=== PATIENT | male | born 1950 | race Caucasian/White ===

== ENCOUNTER 2021-01-08 13:45 | Outpatient (CLI) | payer MEDICARE, SELFPAY ==
[2021-01-08 14:07] LABS: Basophils Absolute Auto 0.1 K/mm3 (0.0-0.1); Basophils Percent Auto 0.7 % (0.2-1.2); Eosinophils Absolute Auto 0.1 K/mm3 (0-0.3); Eosinophils Percent Auto 1.2 % (0-4.4); Hematocrit 44.9 % (42.0-52.0); Hemoglobin 14.8 g/dL (14.0-18.0); Immature Granulocyte Absolute 0.02 K/mm3 (0.00-0.031); Immature Granulocyte Percent A 0.2 % (0-0.5); Lymphocytes Absolute Auto 2.34 K/mm3 (0.9-3.2); Lymphocytes Percent Auto 22.4 % (18.3-44.2); Mean Corpuscular Hemoglobin 33.4 pg (26-34); Mean Corpuscular Volume 101.4 fl (80-100); Mean Platelet Volume 8.8 fl (7.4-10.4); Monocytes Absolute Auto 0.7 K/mm3 (0.1-0.6); Monocytes Percent Auto 6.7 % (2.6-8.5); Neutrophils Absolute Auto 7.2 K/mm3 (1.3-6.7); Neutrophils Percent Auto 68.8 % (45.5-73.1); Platelet Count Result 303 k/mm3 (150-375); Red Blood Count 4.43 M/mm3 (4.6-6.20); Red Cell Distribution Width 13.1 % (11.5-14.5); White Blood Count 10.4 K/mm3 (4.5-10.0)
[2021-01-08 15:58] LABS: Alanine Aminotransferase 33 U/L (4-50); Alkaline Phosphatase 66 U/L (38-126); Anion Gap 9 mmol/L (8-16); Aspartate Amino Transferase 36 U/L (17-59); Bilirubin,Total 0.5 mg/dL (0.2-1.3); Blood Urea Nitrogen 14 mg/dL (9-20); Calcium 9.7 mg/dL (8.4-10.2); Carbon Dioxide 28 mmol/L (22-30); Chloride 98 mmol/L (98-107); Estimated Glomerular Filt Rate > 60; Glucose 95 mg/dL (65-110); Potassium 3.9 mmol/L (3.4-5.0); Sodium 135 mmol/L (137-145)
[2021-01-08 16:08] LABS: Immunoglobulin A 301 mg/dL (70-400); Immunoglobulin G 792 mg/dL (700-1600); Immunoglobulin M 37 mg/dL (40-230)
[2021-01-12 02:54] LABS: Albumin 4.6 g/dL (3.8-4.8); Alpha 1 Globulin 0.3 g/dL (0.2-0.3); Alpha 2 Globulin 0.7 g/dL (0.5-0.9); Beta 1 Globulin 0.6 g/dL (0.4-0.6); Gamma Globulin 0.9 g/dL (0.8-1.7); Protein, Total 7.6 g/dL (6.1-8.1)
[2021-01-12 04:57] LABS: Kappa\\Lambda Light Chains 1.03 (0.26-1.65); Lambda Light Chain 18.4 mg/L (5.7-26.3)
== END 2021-01-08 13:46 | disposition home or self-care (01) ==
PROVIDERS: Visit Provider Internal Medicine Hematology & Oncology
DX: D47.2 Monoclonal gammopathy (principal)
CPT/HCPCS: 36415; 80053; 82784; 83883; 84155; 84165; 85025

== ENCOUNTER 2021-07-30 13:53 | Outpatient (CLI) | payer MEDICARE, SELFPAY ==
[2021-07-30 14:23] LABS: Basophils Absolute Auto 0.1 K/mm3 (0.0-0.1); Basophils Percent Auto 1.1 % (0.2-1.2); Eosinophils Absolute Auto 0.2 K/mm3 (0-0.3); Eosinophils Percent Auto 2.7 % (0-4.4); Hematocrit 46.5 % (42.0-52.0); Hemoglobin 15.8 g/dL (14.0-18.0); Immature Granulocyte Absolute 0.02 K/mm3 (0.00-0.031); Immature Granulocyte Percent A 0.2 % (0-0.5); Lymphocytes Absolute Auto 2.18 K/mm3 (0.9-3.2); Lymphocytes Percent Auto 26.5 % (18.3-44.2); Mean Corpuscular Hemoglobin 34.8 pg (26-34); Mean Corpuscular Volume 102.4 fl (80-100); Mean Platelet Volume 9.1 fl (7.4-10.4); Monocytes Absolute Auto 0.8 K/mm3 (0.1-0.6); Monocytes Percent Auto 9.5 % (2.6-8.5); Platelet Count Result 250 k/mm3 (150-375); Red Blood Count 4.54 M/mm3 (4.6-6.20); Red Cell Distribution Width 13.2 % (11.5-14.5); White Blood Count 8.2 K/mm3 (4.5-10.0)
[2021-07-30 16:38] LABS: Alanine Aminotransferase 24 U/L (6-50); Albumin Level 4.7 g/dL (3.5-5.1); Alkaline Phosphatase 74 U/L (38-126); Anion Gap 6 mmol/L (8-16); Aspartate Amino Transferase 37 U/L (17-59); Bilirubin,Total 0.3 mg/dL (0.2-1.3); Blood Urea Nitrogen 19 mg/dL (9-20); Calcium 9.2 mg/dL (8.4-10.2); Carbon Dioxide 29 mmol/L (22-30); Chloride 99 mmol/L (98-107); Estimated Glomerular Filt Rate > 60; Glucose 90 mg/dL (65-110); Potassium 3.9 mmol/L (3.4-5.0); Sodium 134 mmol/L (137-145)
== END 2021-07-30 13:54 | disposition home or self-care (01) ==
LOC: ANHLAB 13:55
PROVIDERS: Visit Provider Internal Medicine Hematology & Oncology
DX: E88.09 Other disorders of plasma-protein metabolism, not elsewhere classified (principal)
CPT/HCPCS: 36415; 80053; 85025

== ENCOUNTER 2022-08-12 09:00 | Outpatient (NON) | payer MEDICARE, SELFPAY | END 2022-08-12 09:01 | disposition home or self-care (01) | LOC: ANHLAB 08-13 15:49 | PROVIDERS: Visit Provider Nurse Practitioner | DX: C44.529 Squamous cell carcinoma of skin of other part of trunk (principal) | CPT/HCPCS: 88305 ==

== ENCOUNTER 2022-09-08 13:52 | Outpatient (NON) | payer MEDICARE, SELFPAY | END 2022-09-08 13:53 | disposition home or self-care (01) | LOC: ANHLAB 13:53 | PROVIDERS: Visit Provider Nurse Practitioner | DX: C44.92 Squamous cell carcinoma of skin, unspecified (principal) | CPT/HCPCS: 88305; 88331 ==

== ENCOUNTER 2024-04-04 13:04 | Inpatient (IN) | payer MEDICARE, SELFPAY ==
--- NOTE | ~2024-04-04 | CT_ITS ---
EXAMINATION: CT brain wo con DATE: 04/04/2024 17:48 INDICATION: dizziness . TECHNIQUE: Computed tomography (CT) of the head was performed without intravenous contrast. The mA wa s adjusted according to patient size. Iterative reconstruction technique was employed. The dose-lengt h product was 681.00 mGy-cm. COMPARISON: None. FINDINGS: No acute intracranial hemorrhage or extra-axial fluid collection. No hydrocephalus, mass, or herniation. No acute ischemic infarct. Unremarkable dural venous sinus attenuation. No acute osseous abnormality. Bilateral maxillary and ethmoid mucosal thickening, aerated secretions in the left sphenoid and maxil isidoro sinuses, the remaining aerated spaces are clear. Focal right medial occipital encephalomalacia. Mild and chronic white matter change. Atherosclerotic intracranial calcification. Bilateral lens replacements. IMPRESSION: No acute intracranial process. Reviewed, dictated and finalized at location K. 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
--- NOTE | ~2024-04-04 | XR_ITS ---
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 RESULT: Lines, tubes, and devices: Intact sternotomy wires. Left chest pacer with intact leads. Cardiac valv e replacement. Lungs and pleura: Mild diffuse reticular opacities with indistinct vessels. Cardiomediastinal silhouette: Stable. Other: No acute osseous or upper abdominal finding. IMPRESSION: Mild interstitial edema. Reviewed, dictated and finalized at location K. ETIC TURF WORKER IMPRESSION: Mild interstitial edema.
--- NOTE | ~2024-04-04 | CT_ITS ---
EXAMINATION: CT abdomen pelvis w con DATE: 04/09/2024 17:53 INDICATION: unknown fever etiology TECHNIQUE: Computed tomography (CT) of the abdomen and pelvis was performed with 100 mL Omnipaque-350 intravenous contrast. Automated exposure control and iterative reconstruction technique were employe d. The dose-length product was 791.25 mGy-cm. COMPARISON: X-ray chest, same date. FINDINGS: Lower thorax: Minimal bibasilar scar/atelectasis. Cardiac pacing wires. Cardiac valve replacement. Co ronary artery calcifications Liver: Scattered hypodensities, likely representing cysts/hemangiomas. Simple right lobe cyst. Biliary/Gallbladder: Cholelithiasis. Mild gallbladder hydrops. No inflammatory change. No bile duct d ilation. Pancreas: No mass or duct dilation. Spleen: Normal. Adrenals:No mass. Kidneys: Simple right lower pole cysts. Bilateral subcentimeter hypodensities, too small to character ize, but most likely represent cysts. Nonobstructing 3 mm right lower pole calcification. GI tract: No small or large bowel dilation. Appendix not confidently visualized. Diverticulosis witho ut diverticulitis. Mesentery/Peritoneum: No ascites, mass, or free air. Retroperitoneum: No mass. Atherosclerotic calcifications of intra-abdominal arterial vessels. Fusifor m infrarenal abdominal aortic aneurysm measuring up to 3.7 cm. Pelvis: Distended urinary bladder with mild wall thickening. Mild prostatomegaly. Soft Tissues: Small, uncomplicated, fat-containing bilateral inguinal and helical hernias Bones: No acute osseous finding. IMPRESSION: Cholelithiasis and mild gallbladder hydrops, without inflammatory changes, correlate with biliary lab s. Cystitis versus urinary bladder wall thickening from chronic outlet obstruction. Otherwise, no acute abdominopelvic process detected. 3.7 cm infrarenal abdominal aortic aneurysm, recommend CT of the abdomen and pelvis with contrast in 2 years for follow-up. Reviewed, dictated and finalized at location [facility]. [facility] IMPRESSION: Cholelithiasis and mild gallbladder hydrops, without inflammatory changes, rod elate with biliary labs. Cystitis versus urinary bladder wall thickening from chronic outlet obstruction . Otherwise, no acute abdominopelvic process detected. 3.7 cm infrarenal abdominal aortic aneurysm, recommend CT of the abdomen and pe lvis with contrast in 2 years for follow-up.
--- NOTE | ~2024-04-04 | XR_ITS ---
EXAMINATION: XR chest 1V portable DATE: 04/08/2024 10:18 INDICATION: Weakness. Assess for pneumonia post recent flulike symptoms. TECHNIQUE: frontal view of the chest was obtained. COMPARISON: Chest radiograph dated 04/04/2024 FINDINGS: The lungs are clear with no focal airspace opacities, pulmonary edema, pleural effusion or pneumothor ax. The cardiomediastinal silhouette is within normal limits for AP technique. Median sternotomy wire s and mediastinal surgical clips are seen, likely from prior coronary artery bypass grafting. There i s also been a prior cardiac valve repair, likely mitral. Dual lead pacemaker seen with leads projecti ng over the expected locations of the right atrium and right ventricle. IMPRESSION: 1. No acute cardiopulmonary disease. Reviewed, dictated and finalized at location B. CTIOUS DISEASES PHYSICIAN
[2024-04-04 13:09] VITALS: BP 138/74; PULSE 74; RESP 16; TEMP 36.4; O2SAT 100
--- NOTE | 2024-04-04 14:15 | ED_ITS ---
HPI - Weakness General Chief complaint: Weakness <Kle Reveles PA-C - Last Filed: 04/04/24 14:25> Stated complaint: fluish <Kel Reveles PA-C - Last Filed: 04/04/24 14:25> Time Seen by Provider: 04/04/24 15:30 <Kel Reveles PA-C - Last Filed: 04/04/24 14:25> Focused HPI: this is a 73-year-old male who presents to the ED for chief complaint of fatigue and general weakness intermittent over the past 4 weeks. Patient states that he has been having off and on flu-like symptoms. Reports chills, body aches and extreme fatigue. States that he was seen by his PCP 2 weeks ago and was feeling fine at that time. States he was seen a [place] 4 days ago and had a negative workup there aside from a mildly low potassium which was orally repleted at that time. States that he feels the same today as he did last when he was seen. Endorses mild dizziness when standing up. Denies chest pain, syncope, numbness, weakness. s/p aortic valve replacement, pacemaker placed, appendectomy GENERAL: Well-appearing, well-nourished, and in no acute distress. HEAD: Normocephalic, atraumatic. CHEST: Clear to auscultation. No respiratory distress. HEART: Regular rate and rhythm. NEURO: Alert and oriented x3. Patient screened in triage and initial orders placed. Additional care and disposition to be based upon diagnostic testing and treatment. <Kel Reveles PA-C - Last Filed: 04/04/24 14:25> Source: patient <Kel Reveles PA-C - Last Filed: 04/04/24 14:25> Mode of arrival: ambulatory <Kel Reveles PA-C - Last Filed: 04/04/24 14:25> Limitations: no limitations <Kel Reveles PA-C - Last Filed: 04/04/24 14:25> History of Present Illness HPI Narrative: Agree with HPI <Nikita Francisco MD - Last Filed: 04/04/24 22:00> Related Data Home medications: Home Medications ?Medication ?Instructions ?Recorded ?Confirmed ?Last Taken ?Type aspirin 81 mg capsule 81 mg PO DAILY 04/04/24 04/04/24 Unknown History atorvastatin 80 mg tablet (Lipitor) 80 mg PO DAILY 04/04/24 04/04/24 Unknown History gabapentin 300 mg capsule 300 mg PO TID 04/04/24 04/04/24 Unknown History multivitamin 1 tablet PO DAILY 04/04/24 04/04/24 Unknown History nifedipine 90 mg tablet,extended 90 mg PO DAILY 04/04/24 04/04/24 Unknown History release triamterene 37.5 1 cap PO DAILY 04/04/24 04/04/24 Unknown History mg-hydrochlorothiazide 25 mg capsule warfarin 4 mg tablet 4 mg PO DAILY 04/04/24 04/04/24 Unknown History <Kel Reveles PA-C - Last Filed: 04/04/24 14:25> Allergies/Adverse reactions: Allergies Allergy/AdvReac Type Severity Reaction Status Date / Time No Known Allergies Allergy Verified 04/04/24 15:28 <Kel Reveles PA-C - Last Filed: 04/04/24 14:25> Review of Systems 2 Review of Systems: All systems reviewed & are unremarkable except as noted in HPI and below <Nikita Francisco MD - Last Filed: 04/04/24 22:00> Constitutional: Constitutional: Reports no additional constitutional complaints <Nikita Francisco MD - Last Filed: 04/04/24 22:00> ENT: Reports system reviewed and no additional complaints, except as documented <Nikita Francisco MD - Last Filed: 04/04/24 22:00> Cardiovascular: Cardiovascular: Reports no additional cardiovascular complaints <Nikita Francisco MD - Last Filed: 04/04/24 22:00> Respiratory: Respiratory: Reports no additional respiratory complaints < Nikita Francisco MD - Last Filed: 04/04/24 22:00> FORMERLY [facility], [facility] Past Medical History Medical History: Medical History (Updated 04/04/24 @ 22:00 by Nikita Francisco MD) Hypertension Hyperlipidemia <Kel Reveles PA-C - Last Filed: 04/04/24 14:25> Surgical History Surgical History: Surgical History (Updated 04/04/24 @ 21:55 by Nikita Francisco MD) Aortic valve replaced <Kel Reveles PA-C - Last Filed: 04/04/24 14:25> Exam 2 Narrative: GENERAL: Well-appearing, well-nourished, and in no acute distress. HEAD: Normocephalic, atraumatic. EYES: PERRL and EOMI. ENT: Mucous membranes moist. TMs normal bilaterally. CHEST: Clear to auscultation. No respiratory distress. HEART: Regular rate and rhythm. Normal peripheral pulses. ABDOMEN: Soft, nontender, nondistended. EXTREMITIES: Normal range of motion. No edema. SKIN: Warm, dry, no rash. NEURO: Alert and oriented x3. PSYCH: Normal mood and affect. <Nikita Francisco MD - Last Filed: 04/04/24 22:00> Course Course Emergency Course: Subtherapeutic INR. Discussed imaging results. Dizziness for last month likely related to the sinusitis. Admit to hospitalist service on heparin drip. Will give home dose of warfarin this evening. <Nikita Francisco MD - Last Filed: 04/04/24 22:00> Vital Signs Vital signs: Vital Signs Temperature 97.5 F L 04/04/24 13:09 Pulse Rate 74 04/04/24 13:09 Respiratory Rate 16 04/04/24 13:09 Blood Pressure 138/74 04/04/24 13:09 Pulse Oximetry 100 04/04/24 13:09 Temperature 97.8 F 04/04/24 19:16 Pulse Rate 72 04/04/24 19:16 Respiratory Rate 17 04/04/24 19:16 Blood Pressure 114/70 04/04/24 19:16 Pulse Oximetry 93 04/04/24 19:16 <Kel Reveles PA-C - Last Filed: 04/04/24 14:25> Vital Signs Temperature 97.5 F L 04/04/24 13:09 Pulse Rate 74 04/04/24 13:09 Respiratory Rate 16 04/04/24 13:09 Blood Pressure 138/74 04/04/24 13:09 Pulse Oximetry 100 04/04/24 13:09 Temperature 97.8 F 04/04/24 19:16 Pulse Rate 72 04/04/24 19:16 Respiratory Rate 17 04/04/24 19:16 Blood Pressure 114/70 04/04/24 19:16 Pulse Oximetry 93 04/04/24 19:16 <Nikita Francisco MD - Last Filed: 04/04/24 22:00> MDM - Weakness Lab Data Result diagrams: 04/04/24 14:35 04/04/24 14:35 <Kel Reveles PA-C - Last Filed: 04/04/24 14:25> Labs: Lab Results 04/04/24 04/04/24 04/04/24 Range/Units 14:35 14:35 14:35 WBC 10.9 H (4.5-10.0) K/mm3 RBC 4.03 L (4.6-6.20) M/mm3 Hgb 13.3 L (14.0-18.0) g/dL Hct 39.9 L (42.0-52.0) % MCV 99.0 (80-100) fl MCH 33.0 (26-34) pg MCHC 33.3 (32-36) g/dl RDW 13.4 (11.5-14.5) % Plt Count 294 (150-375) k/mm3 MPV 9.5 (7.4-10.4) fl Immature Gran % (Auto) 0.6 H (0-0.5) % Neut % (Auto) 81.6 H (45.5-73.1) % Lymph % (Auto) 9.9 L (18.3-44.2) % [place] % (Auto) 6.7 (2.6-8.5) % Eos % (Auto) 0.6 (0-4.4) % Baso % (Auto) 0.6 (0.2-1.2) % Lymph # (Auto) 1.08 (0.9-3.2) K/mm3 [place] # (Auto) 0.7 H (0.1-0.6) K/mm3 Eos # (Auto) 0.1 (0-0.3) K/mm3 Baso # (Auto) 0.1 (0.0-0.1) K/mm3 Abs Immat Gran (auto) 0.06 H (0.00-0.031) K/mm3 Absolute Neuts (auto) 8.9 H (1.3-6.7) K/mm3 Absolute Nucleated RBC 0.000 (0.0-0.012) K/mm3 Nucleated RBC % 0.0 (0.0-0.2) % PT 15.9 H (11.1-14.7) Seconds INR 1.2 APTT 41.5 H (22.3-36.8) Seconds Sodium Cancelled 139 Potassium Cancelled 3.3 L Chloride Cancelled Carbon Dioxide Anion Gap BUN Creatinine Estim Creat Clear Calc Estimated GFR Glucose Calcium Total Bilirubin AST ALT Alkaline Phosphatase Troponin I (0.000-0.034) ng/mL NT-Pro-B Natriuret Pep (19.9-100) pg/mL Total Protein Albumin Influenza A (RT-PCR) (Negative) Influenza B (RT-PCR) (Negative) RSV (RT-PCR) (Negative) SARS-CoV-2 RNA (RT-PCR) (Negative) 04/04/24 04/04/24 04/04/24 Range/Units 14:35 14:35 14:35 WBC (4.5-10.0) K/mm3 RBC (4.6-6.20) M/mm3 Hgb (14.0-18.0) g/dL Hct (42.0-52.0) % MCV (80-100) fl MCH (26-34) pg MCHC (32-36) g/dl RDW (11.5-14.5) % Plt Count (150-375) k/mm3 MPV (7.4-10.4) fl Immature Gran % (Auto) (0-0.5) % Neut % (Auto) (45.5-73.1) % Lymph % (Auto) (18.3-44.2) % [place] % (Auto) (2.6-8.5) % Eos % (Auto) (0-4.4) % Baso % (Auto) (0.2-1.2) % Lymph # (Auto) (0.9-3.2) K/mm3 [place] # (Auto) (0.1-0.6) K/mm3 Eos # (Auto) (0-0.3) K/mm3 Baso # (Auto) (0.0-0.1) K/mm3 Abs Immat Gran (auto) (0.00-0.031) K/mm3 Absolute Neuts (auto) (1.3-6.7) K/mm3 Absolute Nucleated RBC (0.0-0.012) K/mm3 Nucleated RBC % (0.0-0.2) % PT (11.1-14.7) Seconds INR APTT (22.3-36.8) Seconds Sodium Potassium Chloride 100 Carbon Dioxide Cancelled 29 Anion Gap Cancelled 10 BUN Cancelled Creatinine Estim Creat Clear Calc Estimated GFR Glucose Calcium Total Bilirubin AST ALT Alkaline Phosphatase Troponin I (0.000-0.034) ng/mL NT-Pro-B Natriuret Pep (19.9-100) pg/mL Total Protein Albumin Influenza A (RT-PCR) (Negative) Influenza B (RT-PCR) (Negative) RSV (RT-PCR) (Negative) SARS-CoV-2 RNA (RT-PCR) (Negative) 04/04/24 04/04/24 04/04/24 Range/Units 14:35 14:35 14:35 WBC (4.5-10.0) K/mm3 RBC (4.6-6.20) M/mm3 Hgb (14.0-18.0) g/dL Hct (42.0-52.0) % MCV (80-100) fl MCH (26-34) pg MCHC (32-36) g/dl RDW (11.5-14.5) % Plt Count (150-375) k/mm3 MPV (7.4-10.4) fl Immature Gran % (Auto) (0-0.5) % Neut % (Auto) (45.5-73.1) % Lymph % (Auto) (18.3-44.2) % [place] % (Auto) (2.6-8.5) % Eos % (Auto) (0-4.4) % Baso % (Auto) (0.2-1.2) % Lymph # (Auto) (0.9-3.2) K/mm3 [place] # (Auto) (0.1-0.6) K/mm3 Eos # (Auto) (0-0.3) K/mm3 Baso # (Auto) (0.0-0.1) K/mm3 Abs Immat Gran (auto) (0.00-0.031) K/mm3 Absolute Neuts (auto) (1.3-6.7) K/mm3 Absolute Nucleated RBC (0.0-0.012) K/mm3 Nucleated RBC % (0.0-0.2) % PT (11.1-14.7) Seconds INR APTT (22.3-36.8) Seconds Sodium Potassium Chloride Carbon Dioxide Anion Gap BUN 15 Creatinine Cancelled 0.70 Estim Creat Clear Calc Cancelled 82 Estimated GFR Cancelled Glucose Calcium Total Bilirubin AST ALT Alkaline Phosphatase Troponin I (0.000-0.034) ng/mL NT-Pro-B Natriuret Pep (19.9-100) pg/mL Total Protein Albumin Influenza A (RT-PCR) (Negative) Influenza B (RT-PCR) (Negative) RSV (RT-PCR) (Negative) SARS-CoV-2 RNA (RT-PCR) (Negative) 04/04/24 04/04/24 04/04/24 Range/Units 14:35 14:35 14:35 WBC (4.5-10.0) K/mm3 RBC (4.6-6.20) M/mm3 Hgb (14.0-18.0) g/dL Hct (42.0-52.0) % MCV (80-100) fl MCH (26-34) pg MCHC (32-36) g/dl RDW (11.5-14.5) % Plt Count (150-375) k/mm3 MPV (7.4-10.4) fl Immature Gran % (Auto) (0-0.5) % Neut % (Auto) (45.5-73.1) % Lymph % (Auto) (18.3-44.2) % [place] % (Auto) (2.6-8.5) % Eos % (Auto) (0-4.4) % Baso % (Auto) (0.2-1.2) % Lymph # (Auto) (0.9-3.2) K/mm3 [place] # (Auto) (0.1-0.6) K/mm3 Eos # (Auto) (0-0.3) K/mm3 Baso # (Auto) (0.0-0.1) K/mm3 Abs Immat Gran (auto) (0.00-0.031) K/mm3 Absolute Neuts (auto) (1.3-6.7) K/mm3 Absolute Nucleated RBC (0.0-0.012) K/mm3 Nucleated RBC % (0.0-0.2) % PT (11.1-14.7) Seconds INR APTT (22.3-36.8) Seconds Sodium Potassium Chloride Carbon Dioxide Anion Gap BUN Creatinine Estim Creat Clear Calc Estimated GFR > 60 Glucose Cancelled 116 H Calcium Cancelled 9.5 Total Bilirubin Cancelled AST ALT Alkaline Phosphatase Troponin I (0.000-0.034) ng/mL NT-Pro-B Natriuret Pep (19.9-100) pg/mL Total Protein Albumin Influenza A (RT-PCR) (Negative) Influenza B (RT-PCR) (Negative) RSV (RT-PCR) (Negative) SARS-CoV-2 RNA (RT-PCR) (Negative) 04/04/24 04/04/24 04/04/24 Range/Units 14:35 14:35 14:35 WBC (4.5-10.0) K/mm3 RBC (4.6-6.20) M/mm3 Hgb (14.0-18.0) g/dL Hct (42.0-52.0) % MCV (80-100) fl MCH (26-34) pg MCHC (32-36) g/dl RDW (11.5-14.5) % Plt Count (150-375) k/mm3 MPV (7.4-10.4) fl Immature Gran % (Auto) (0-0.5) % Neut % (Auto) (45.5-73.1) % Lymph % (Auto) (18.3-44.2) % [place] % (Auto) (2.6-8.5) % Eos % (Auto) (0-4.4) % Baso % (Auto) (0.2-1.2) % Lymph # (Auto) (0.9-3.2) K/mm3 [place] # (Auto) (0.1-0.6) K/mm3 Eos # (Auto) (0-0.3) K/mm3 Baso # (Auto) (0.0-0.1) K/mm3 Abs Immat Gran (auto) (0.00-0.031) K/mm3 Absolute Neuts (auto) (1.3-6.7) K/mm3 Absolute Nucleated RBC (0.0-0.012) K/mm3 Nucleated RBC % (0.0-0.2) % PT (11.1-14.7) Seconds INR APTT (22.3-36.8) Seconds Sodium Potassium Chloride Carbon Dioxide Anion Gap BUN Creatinine Estim Creat Clear Calc Estimated GFR Glucose Calcium Total Bilirubin 0.7 AST Cancelled 25 ALT Cancelled 29 Alkaline Phosphatase Cancelled Troponin I (0.000-0.034) ng/mL NT-Pro-B Natriuret Pep (19.9-100) pg/mL Total Protein Albumin Influenza A (RT-PCR) (Negative) Influenza B (RT-PCR) (Negative) RSV (RT-PCR) (Negative) SARS-CoV-2 RNA (RT-PCR) (Negative) 04/04/24 04/04/24 04/04/24 Range/Units 14:35 14:35 14:35 WBC (4.5-10.0) K/mm3 RBC (4.6-6.20) M/mm3 Hgb (14.0-18.0) g/dL Hct (42.0-52.0) % MCV (80-100) fl MCH (26-34) pg MCHC (32-36) g/dl RDW (11.5-14.5) % Plt Count (150-375) k/mm3 MPV (7.4-10.4) fl Immature Gran % (Auto) (0-0.5) % Neut % (Auto) (45.5-73.1) % Lymph % (Auto) (18.3-44.2) % [place] % (Auto) (2.6-8.5) % Eos % (Auto) (0-4.4) % Baso % (Auto) (0.2-1.2) % Lymph # (Auto) (0.9-3.2) K/mm3 [place] # (Auto) (0.1-0.6) K/mm3 Eos # (Auto) (0-0.3) K/mm3 Baso # (Auto) (0.0-0.1) K/mm3 Abs Immat Gran (auto) (0.00-0.031) K/mm3 Absolute Neuts (auto) (1.3-6.7) K/mm3 Absolute Nucleated RBC (0.0-0.012) K/mm3 Nucleated RBC % (0.0-0.2) % PT (11.1-14.7) Seconds INR APTT (22.3-36.8) Seconds Sodium Potassium Chloride Carbon Dioxide Anion Gap BUN Creatinine Estim Creat Clear Calc Estimated GFR Glucose Calcium Total Bilirubin AST ALT Alkaline Phosphatase 69 Troponin I 0.013 (0.000-0.034) ng/mL NT-Pro-B Natriuret Pep 2830 H (19.9-100) pg/mL Total Protein Cancelled 8.0 Albumin Cancelled 3.8 Influenza A (RT-PCR) Negative (Negative) Influenza B (RT-PCR) Negative (Negative) RSV (RT-PCR) Negative (Negative) SARS-CoV-2 RNA (RT-PCR) Negative (Negative) <Kel Reveles PA-C - Last Filed: 04/04/24 14:25> Lab Results 04/04/24 04/04/24 04/04/24 Range/Units 14:35 14:35 14:35 WBC 10.9 H (4.5-10.0) K/mm3 RBC 4.03 L (4.6-6.20) M/mm3 Hgb 13.3 L (14.0-18.0) g/dL Hct 39.9 L (42.0-52.0) % MCV 99.0 (80-100) fl MCH 33.0 (26-34) pg MCHC 33.3 (32-36) g/dl RDW 13.4 (11.5-14.5) % Plt Count 294 (150-375) k/mm3 MPV 9.5 (7.4-10.4) fl Immature Gran % (Auto) 0.6 H (0-0.5) % Neut % (Auto) 81.6 H (45.5-73.1) % Lymph % (Auto) 9.9 L (18.3-44.2) % [place] % (Auto) 6.7 (2.6-8.5) % Eos % (Auto) 0.6 (0-4.4) % Baso % (Auto) 0.6 (0.2-1.2) % Lymph # (Auto) 1.08 (0.9-3.2) K/mm3 [place] # (Auto) 0.7 H (0.1-0.6) K/mm3 Eos # (Auto) 0.1 (0-0.3) K/mm3 Baso # (Auto) 0.1 (0.0-0.1) K/mm3 Abs Immat Gran (auto) 0.06 H (0.00-0.031) K/mm3 Absolute Neuts (auto) 8.9 H (1.3-6.7) K/mm3 Absolute Nucleated RBC 0.000 (0.0-0.012) K/mm3 Nucleated RBC % 0.0 (0.0-0.2) % PT 15.9 H (11.1-14.7) Seconds INR 1.2 APTT 41.5 H (22.3-36.8) Seconds Sodium Cancelled 139 Potassium Cancelled 3.3 L Chloride Cancelled Carbon Dioxide Anion Gap BUN Creatinine Estim Creat Clear Calc Estimated GFR Glucose Calcium Total Bilirubin AST ALT Alkaline Phosphatase Troponin I (0.000-0.034) ng/mL NT-Pro-B Natriuret Pep (19.9-100) pg/mL Total Protein Albumin Influenza A (RT-PCR) (Negative) Influenza B (RT-PCR) (Negative) RSV (RT-PCR) (Negative) SARS-CoV-2 RNA (RT-PCR) (Negative) 04/04/24 04/04/24 04/04/24 Range/Units 14:35 14:35 14:35 WBC (4.5-10.0) K/mm3 RBC (4.6-6.20) M/mm3 Hgb (14.0-18.0) g/dL Hct (42.0-52.0) % MCV (80-100) fl MCH (26-34) pg MCHC (32-36) g/dl RDW (11.5-14.5) % Plt Count (150-375) k/mm3 MPV (7.4-10.4) fl Immature Gran % (Auto) (0-0.5) % Neut % (Auto) (45.5-73.1) % Lymph % (Auto) (18.3-44.2) % [place] % (Auto) (2.6-8.5) % Eos % (Auto) (0-4.4) % Baso % (Auto) (0.2-1.2) % Lymph # (Auto) (0.9-3.2) K/mm3 [place] # (Auto) (0.1-0.6) K/mm3 Eos # (Auto) (0-0.3) K/mm3 Baso # (Auto) (0.0-0.1) K/mm3 Abs Immat Gran (auto) (0.00-0.031) K/mm3 Absolute Neuts (auto) (1.3-6.7) K/mm3 Absolute Nucleated RBC (0.0-0.012) K/mm3 Nucleated RBC % (0.0-0.2) % PT (11.1-14.7) Seconds INR APTT (22.3-36.8) Seconds Sodium Potassium Chloride 100 Carbon Dioxide Cancelled 29 Anion Gap Cancelled 10 BUN Cancelled Creatinine Estim Creat Clear Calc Estimated GFR Glucose Calcium Total Bilirubin AST ALT Alkaline Phosphatase Troponin I (0.000-0.034) ng/mL NT-Pro-B Natriuret Pep (19.9-100) pg/mL Total Protein Albumin Influenza A (RT-PCR) (Negative) Influenza B (RT-PCR) (Negative) RSV (RT-PCR) (Negative) SARS-CoV-2 RNA (RT-PCR) (Negative) 04/04/24 04/04/24 04/04/24 Range/Units 14:35 14:35 14:35 WBC (4.5-10.0) K/mm3 RBC (4.6-6.20) M/mm3 Hgb (14.0-18.0) g/dL Hct (42.0-52.0) % MCV (80-100) fl MCH (26-34) pg MCHC (32-36) g/dl RDW (11.5-14.5) % Plt Count (150-375) k/mm3 MPV (7.4-10.4) fl Immature Gran % (Auto) (0-0.5) % Neut % (Auto) (45.5-73.1) % Lymph % (Auto) (18.3-44.2) % [place] % (Auto) (2.6-8.5) % Eos % (Auto) (0-4.4) % Baso % (Auto) (0.2-1.2) % Lymph # (Auto) (0.9-3.2) K/mm3 [place] # (Auto) (0.1-0.6) K/mm3 Eos # (Auto) (0-0.3) K/mm3 Baso # (Auto) (0.0-0.1) K/mm3 Abs Immat Gran (auto) (0.00-0.031) K/mm3 Absolute Neuts (auto) (1.3-6.7) K/mm3 Absolute Nucleated RBC (0.0-0.012) K/mm3 Nucleated RBC % (0.0-0.2) % PT (11.1-14.7) Seconds INR APTT (22.3-36.8) Seconds Sodium Potassium Chloride Carbon Dioxide Anion Gap BUN 15 Creatinine Cancelled 0.70 Estim Creat Clear Calc Cancelled 82 Estimated GFR Cancelled Glucose Calcium Total Bilirubin AST ALT Alkaline Phosphatase Troponin I (0.000-0.034) ng/mL NT-Pro-B Natriuret Pep (19.9-100) pg/mL Total Protein Albumin Influenza A (RT-PCR) (Negative) Influenza B (RT-PCR) (Negative) RSV (RT-PCR) (Negative) SARS-CoV-2 RNA (RT-PCR) (Negative) 04/04/24 04/04/24 04/04/24 Range/Units 14:35 14:35 14:35 WBC (4.5-10.0) K/mm3 RBC (4.6-6.20) M/mm3 Hgb (14.0-18.0) g/dL Hct (42.0-52.0) % MCV (80-100) fl MCH (26-34) pg MCHC (32-36) g/dl RDW (11.5-14.5) % Plt Count (150-375) k/mm3 MPV (7.4-10.4) fl Immature Gran % (Auto) (0-0.5) % Neut % (Auto) (45.5-73.1) % Lymph % (Auto) (18.3-44.2) % [place] % (Auto) (2.6-8.5) % Eos % (Auto) (0-4.4) % Baso % (Auto) (0.2-1.2) % Lymph # (Auto) (0.9-3.2) K/mm3 [place] # (Auto) (0.1-0.6) K/mm3 Eos # (Auto) (0-0.3) K/mm3 Baso # (Auto) (0.0-0.1) K/mm3 Abs Immat Gran (auto) (0.00-0.031) K/mm3 Absolute Neuts (auto) (1.3-6.7) K/mm3 Absolute Nucleated RBC (0.0-0.012) K/mm3 Nucleated RBC % (0.0-0.2) % PT (11.1-14.7) Seconds INR APTT (22.3-36.8) Seconds Sodium Potassium Chloride Carbon Dioxide Anion Gap BUN Creatinine Estim Creat Clear Calc Estimated GFR > 60 Glucose Cancelled 116 H Calcium Cancelled 9.5 Total Bilirubin Cancelled AST ALT Alkaline Phosphatase Troponin I (0.000-0.034) ng/mL NT-Pro-B Natriuret Pep (19.9-100) pg/mL Total Protein Albumin Influenza A (RT-PCR) (Negative) Influenza B (RT-PCR) (Negative) RSV (RT-PCR) (Negative) SARS-CoV-2 RNA (RT-PCR) (Negative) 04/04/24 04/04/24 04/04/24 Range/Units 14:35 14:35 14:35 WBC (4.5-10.0) K/mm3 RBC (4.6-6.20) M/mm3 Hgb (14.0-18.0) g/dL Hct (42.0-52.0) % MCV (80-100) fl MCH (26-34) pg MCHC (32-36) g/dl RDW (11.5-14.5) % Plt Count (150-375) k/mm3 MPV (7.4-10.4) fl Immature Gran % (Auto) (0-0.5) % Neut % (Auto) (45.5-73.1) % Lymph % (Auto) (18.3-44.2) % [place] % (Auto) (2.6-8.5) % Eos % (Auto) (0-4.4) % Baso % (Auto) (0.2-1.2) % Lymph # (Auto) (0.9-3.2) K/mm3 [place] # (Auto) (0.1-0.6) K/mm3 Eos # (Auto) (0-0.3) K/mm3 Baso # (Auto) (0.0-0.1) K/mm3 Abs Immat Gran (auto) (0.00-0.031) K/mm3 Absolute Neuts (auto) (1.3-6.7) K/mm3 Absolute Nucleated RBC (0.0-0.012) K/mm3 Nucleated RBC % (0.0-0.2) % PT (11.1-14.7) Seconds INR APTT (22.3-36.8) Seconds Sodium Potassium Chloride Carbon Dioxide Anion Gap BUN Creatinine Estim Creat Clear Calc Estimated GFR Glucose Calcium Total Bilirubin 0.7 AST Cancelled 25 ALT Cancelled 29 Alkaline Phosphatase Cancelled Troponin I (0.000-0.034) ng/mL NT-Pro-B Natriuret Pep (19.9-100) pg/mL Total Protein Albumin Influenza A (RT-PCR) (Negative) Influenza B (RT-PCR) (Negative) RSV (RT-PCR) (Negative) SARS-CoV-2 RNA (RT-PCR) (Negative) 04/04/24 04/04/24 04/04/24 Range/Units 14:35 14:35 14:35 WBC (4.5-10.0) K/mm3 RBC (4.6-6.20) M/mm3 Hgb (14.0-18.0) g/dL Hct (42.0-52.0) % MCV (80-100) fl MCH (26-34) pg MCHC (32-36) g/dl RDW (11.5-14.5) % Plt Count (150-375) k/mm3 MPV (7.4-10.4) fl Immature Gran % (Auto) (0-0.5) % Neut % (Auto) (45.5-73.1) % Lymph % (Auto) (18.3-44.2) % [place] % (Auto) (2.6-8.5) % Eos % (Auto) (0-4.4) % Baso % (Auto) (0.2-1.2) % Lymph # (Auto) (0.9-3.2) K/mm3 [place] # (Auto) (0.1-0.6) K/mm3 Eos # (Auto) (0-0.3) K/mm3 Baso # (Auto) (0.0-0.1) K/mm3 Abs Immat Gran (auto) (0.00-0.031) K/mm3 Absolute Neuts (auto) (1.3-6.7) K/mm3 Absolute Nucleated RBC (0.0-0.012) K/mm3 Nucleated RBC % (0.0-0.2) % PT (11.1-14.7) Seconds INR APTT (22.3-36.8) Seconds Sodium Potassium Chloride Carbon Dioxide Anion Gap BUN Creatinine Estim Creat Clear Calc Estimated GFR Glucose Calcium Total Bilirubin AST ALT Alkaline Phosphatase 69 Troponin I 0.013 (0.000-0.034) ng/mL NT-Pro-B Natriuret Pep 2830 H (19.9-100) pg/mL Total Protein Cancelled 8.0 Albumin Cancelled 3.8 Influenza A (RT-PCR) Negative (Negative) Influenza B (RT-PCR) Negative (Negative) RSV (RT-PCR) Negative (Negative) SARS-CoV-2 RNA (RT-PCR) Negative (Negative) <Nikita Francisco MD - Last Filed: 04/04/24 22:00> Imaging Data Radiologist's impression: ITS Impressions Chest X-Ray 04/04/24 14:56 IMPRESSION: Mild interstitial edema. Head CT 04/04/24 17:56 IMPRESSION: No acute intracranial process. <Nikita Francisco MD - Last Filed: 04/04/24 22:00> ECG Data EKG #1: ECG completion date: 04/04/24 <Nikita Francisco MD - Last Filed: 04/04/24 22:00> ECG completion time: 14:40 <Nikita Francisco MD - Last Filed: 04/04/24 22:00> EKG Interpretation: normal rate (72), sinus rhythm, normal QRS, normal QT and other (Inverted T-waves V2 through V6 for this to compression. Similar changes in II/III/AVF.) <Nikita Francisco MD - Last Filed: 04/04/24 22:00> Discharge Plan Discharge Clinical Impression: Subtherapeutic international normalized ratio (INR), Dizziness <Kel Reveles PA-C - Last Filed: 04/04/24 14:25> Patient Disposition: Still a Patient <Kel Reveles PA-C - Last Filed: 04/04/24 14:25> Condition: Stable <Kel Reveles PA-C - Last Filed: 04/04/24 14:25>
--- NOTE | 2024-04-04 14:19 | ECG_ITS ---
Test Date: 2024-04-04 14:40:45 Measurements Intervals [place] Rate: 72 P: 0 TN: 0 QRS: 13 QRSD: 86 T: 268 QT: 399 QTc: 437 Interpretive Statements SINUS OR ECTOPIC ATRIAL RHYTHM ST DEVIATION AND MARKED T-WAVE ABNORMALITY IN ANTEROLAT/INF LEADS- CONSIDER ISCHEMIA BASELINE ARTIFACT- I, II, III, AVR, AVL, AVF, V1-V6 ABNORMAL ECG No previous ECG available for comparison Electronically Signed On 04-04-2024 15:02:06 ENGINEERING GROUP MANAGER by Saravanan Alvarez D.O.
[2024-04-04 14:48] LABS: Basophils Absolute Auto 0.1 K/mm3 (0.0-0.1); Basophils Percent Auto 0.6 % (0.2-1.2); Eosinophils Absolute Auto 0.1 K/mm3 (0-0.3); Eosinophils Percent Auto 0.6 % (0-4.4); Hematocrit 39.9 % (42.0-52.0); Hemoglobin 13.3 g/dL (14.0-18.0); Immature Granulocyte Absolute 0.06 K/mm3 (0.00-0.031); Immature Granulocyte Percent A 0.6 % (0-0.5); Lymphocytes Absolute Auto 1.08 K/mm3 (0.9-3.2); Lymphocytes Percent Auto 9.9 % (18.3-44.2); Mean Corpuscular HGB Conc 33.3 g/dl (32-36); Mean Platelet Volume 9.5 fl (7.4-10.4); Monocytes Absolute Auto 0.7 K/mm3 (0.1-0.6); Monocytes Percent Auto 6.7 % (2.6-8.5); Neutrophils Absolute Auto 8.9 K/mm3 (1.3-6.7); Neutrophils Percent Auto 81.6 % (45.5-73.1); Platelet Count Result 294 k/mm3 (150-375); Red Blood Count 4.03 M/mm3 (4.6-6.20); Red Cell Distribution Width 13.4 % (11.5-14.5); White Blood Count 10.9 K/mm3 (4.5-10.0)
[2024-04-04 14:58] LABS: Alanine Aminotransferase 29 U/L (6-50); Albumin Level 3.8 g/dL (3.5-5.1); Alkaline Phosphatase 69 U/L (38-126); Anion Gap 10 mmol/L (4-12); Aspartate Amino Transferase 25 U/L (17-59); Bilirubin,Total 0.7 mg/dL (0.2-1.3); Blood Urea Nitrogen 15 mg/dL (9-20); Calcium 9.5 mg/dL (8.4-10.2); Carbon Dioxide 29 mmol/L (22-30); Chloride 100 mmol/L (98-107); Estimated CRCL calculation 82 ml/min; Estimated Glomerular Filt Rate > 60; Glucose 116 mg/dL (65-110); Potassium 3.3 mmol/L (3.4-5.0); Sodium 139 mmol/L (137-145)
[2024-04-04 15:09] LABS: NT Pro B Type Natriuretic Pept 2830 pg/mL (19.9-100); Troponin I 0.013 ng/mL (0.000-0.034)
[2024-04-04 15:22] LABS: Influenza A QL RT-PCR Negative (Negative); Influenza B QL RT-PCR Negative (Negative); RSV RNA, RT-PCR Negative (Negative); SARS-CoV-2 RNA PCR Negative (Negative)
[2024-04-04] MEDS: MECLIZINE HCL 25 MG TABLET PO (16:08)
[2024-04-04 16:23] LABS: INR 1.2; Prothrombin Time 15.9 Seconds (11.1-14.7)
[2024-04-04 16:24] LABS: Partial Thromboplastin Time 41.5 Seconds (22.3-36.8)
[2024-04-04] MEDS: HEPARIN SOD/D5W 100 UNITS/ML 25,000 UNITS/250 ML BAG 15 UNITS IV CONT (18:48)
[2024-04-04 19:15] VITALS: PULSE 73
[2024-04-04 19:16] VITALS: BP 114/70; PULSE 72; RESP 17; TEMP 36.6; O2SAT 93
--- NOTE | 2024-04-04 19:18 | PC.NURSE ---
At shift change nursing staff went into room 7 and greeted the patient. Patient asked when will I get to a room ? Nurse explained to patient that the hospital is full and we are on peak census. Patient replies for Leno sake .
[2024-04-04 21:36] VITALS: BMI 27.8
[2024-04-04 21:51] VITALS: BP 143/103; PULSE 72; RESP 16; TEMP 36.4; O2SAT 95
[2024-04-04 22:00] VITALS: BP 149/64; PULSE 76; RESP 20; TEMP 37; O2SAT 95
--- NOTE | 2024-04-04 22:39 | ADMGEN ---
This patient, George Rosa Jr., was admitted to Medical Room 240-01. Patient/family oriented to hospital policies and general routines including ID bracelet, bed and alarms, visiting hours, pain management, procedures, bathroom and other care routines, personal items, smoking policy, room service/diet, and visiting hours. Information on how to activate the Rapid Response Team has been discussed. Patient/Family are encouraged to report perceived risks to care and to ask questions if they do not understand what they are told or what they should do.
[2024-04-05] VITALS (12 sets, daily range): BP systolic 107–137; BP diastolic 61–69; PULSE 69–76; RESP 16–20; TEMP 36.2–37.8; O2SAT 93–97
[2024-04-05] MEDS: GABAPENTIN 300 MG CAPSULE PO ×4 (00:12→17:18)
[2024-04-05] MEDS: WARFARIN (*PBKC) 3 MG TABLET 6 MG PO (00:12)
[2024-04-05] MEDS: POTASSIUM CHLORIDE 20 MEQ PACKET (FOR LIQUID) 40 MEQ PO (00:12)
[2024-04-05 01:17] LABS: Partial Thromboplastin Time 103.9 Seconds (22.3-36.8)
[2024-04-05 06:44] LABS: Basophils Absolute Auto 0.1 K/mm3 (0.0-0.1); Basophils Percent Auto 0.6 % (0.2-1.2); Eosinophils Absolute Auto 0.1 K/mm3 (0-0.3); Eosinophils Percent Auto 0.8 % (0-4.4); Hematocrit 34.9 % (42.0-52.0); Hemoglobin 11.7 g/dL (14.0-18.0); Immature Granulocyte Absolute 0.06 K/mm3 (0.00-0.031); Immature Granulocyte Percent A 0.6 % (0-0.5); Lymphocytes Absolute Auto 1.29 K/mm3 (0.9-3.2); Lymphocytes Percent Auto 13.4 % (18.3-44.2); Mean Corpuscular HGB Conc 33.5 g/dl (32-36); Mean Corpuscular Hemoglobin 33.2 pg (26-34); Mean Corpuscular Volume 99.1 fl (80-100); Mean Platelet Volume 9.5 fl (7.4-10.4); Monocytes Absolute Auto 0.8 K/mm3 (0.1-0.6); Monocytes Percent Auto 7.8 % (2.6-8.5); Neutrophils Absolute Auto 7.4 K/mm3 (1.3-6.7); Neutrophils Percent Auto 76.8 % (45.5-73.1); Platelet Count Result 249 k/mm3 (150-375); Red Blood Count 3.52 M/mm3 (4.6-6.20); Red Cell Distribution Width 13.4 % (11.5-14.5); White Blood Count 9.7 K/mm3 (4.5-10.0)
[2024-04-05 07:05] LABS: Partial Thromboplastin Time 139.1 Seconds (22.3-36.8)
--- NOTE | 2024-04-05 08:30 | PM.IMHP ---
H&P: HPI History of Present Illness Date/Time: 04/05/24 08:30 Chief Complaint: weakness Narrative: 73 y.o male with PMH/o mechanical aortic valve replacement, pacemaker, hld, on warfarin present for weakness. He is c/o fatigue and general weakness intermittent over the past 4 weeks. Patient having off and on flu-like symptoms. Reports chills, body aches and extreme fatigue. he was seen a [facility] 4 days ago and had a negative workup except mildly low potassium which was orally repleted at that time. Reports mild dizziness when standing up. Denies chest pain, syncope, numbness, weakness. IN ed, his INR was found to be 1.2, he was started on heparin drip. Pt is feeling better today. denies chest pain, sob. Review of Systems Review of Systems: All systems reviewed & are unremarkable except as noted in HPI and below PMFSH Past Medical History Medical History (Updated 04/05/24 @ 16:11 by Karla Hardy APRN) Hypertension Hyperlipidemia Surgical History Surgical History (Updated 04/05/24 @ 16:11 by Karla Hardy APRN) Aortic valve replaced Social History Social History Smoking status: Former smoker Tobacco type: cigarettes Smoking end date: 03/02/22 Alcohol intake: never Substance use: never Substance use type: does not use Do You Feel Safe in your Home?: Yes Lack of Transportation: No Lack of Food: Never True Current Housing: I Have Housing Concerned About Future Housing: No Difficulty Paying Gas/Electric Bills: No Difficulty Paying for Meds: No Currently Unemployed: No Education: Associate Degree Difficulty w/ Childcare or Family Care: No Spiritual care concerns: No Meds Home Medications and Allergies Home Medications ?Medication ?Instructions ?Recorded ?Confirmed ?Type aspirin 81 mg capsule 81 mg PO DAILY 04/04/24 04/04/24 History atorvastatin 80 mg tablet (Lipitor) 80 mg PO DAILY 04/04/24 04/04/24 History gabapentin 300 mg capsule 300 mg PO TID 04/04/24 04/04/24 History multivitamin 1 tablet PO DAILY 04/04/24 04/04/24 History nifedipine 90 mg tablet,extended 90 mg PO DAILY 04/04/24 04/04/24 History release triamterene 37.5 1 cap PO DAILY 04/04/24 04/04/24 History mg-hydrochlorothiazide 25 mg capsule warfarin 4 mg tablet 4 mg PO DAILY 04/04/24 04/04/24 History Allergies Allergy/AdvReac Type Severity Reaction Status Date / Time No Known Allergies Allergy Verified 04/04/24 15:28 Vital Signs Vital Signs - 24 hr 04/04/24 13:09 04/04/24 19:15 04/04/24 19:16 Temperature 97.5 F L 97.8 F Pulse Rate 74 73 72 Respiratory Rate 16 17 Blood Pressure 138/74 114/70 Pulse Oximetry 100 93 Oxygen Delivery 04/04/24 21:51 04/04/24 22:00 04/05/24 00:00 Temperature 97.6 F 98.6 F Pulse Rate 72 76 69 Respiratory Rate 16 20 Blood Pressure 143/103 H 149/64 H Pulse Oximetry 95 95 Oxygen Delivery 04/05/24 00:18 04/05/24 04:00 04/05/24 05:07 Temperature 98.4 F Pulse Rate 76 69 70 Respiratory Rate 20 20 Blood Pressure 129/69 Pulse Oximetry 95 93 Oxygen Delivery Room Air Exam Const: General: comfortable Eyes: General: appearance normal, both eyes and all related structures Neck: Neck: supple Thyroid: thyroid normal Resp: Effort & Inspection: normal respiratory effort Cardio: Rate: regular rate Rhythm: regular rhythm GI: GI Palp: Yes Soft to palpation Skin: General skin exam: normal color Extrem: General: normal to inspection Psych: Affect: normal affect H&P: Results Labs Labs: Short CBC 04/04/24 04/05/24 Range/Units 14:35 06:33 WBC 10.9 H 9.7 (4.5-10.0) K/mm3 Hgb 13.3 L 11.7 L (14.0-18.0) g/dL Hct 39.9 L 34.9 L (42.0-52.0) % Plt Count 294 249 (150-375) k/mm3 BMP 04/04/24 04/04/24 04/04/24 14:35 14:35 14:35 Sodium Cancelled 139 Potassium Cancelled 3.3 L Chloride Cancelled Carbon Dioxide BUN Creatinine Glucose Calcium 04/04/24 04/04/24 04/04/24 14:35 14:35 14:35 Sodium Potassium Chloride 100 Carbon Dioxide Cancelled 29 BUN Cancelled 15 Creatinine Cancelled Glucose Calcium 04/04/24 04/04/24 04/04/24 14:35 14:35 14:35 Sodium Potassium Chloride Carbon Dioxide BUN Creatinine 0.70 Glucose Cancelled 116 H Calcium Cancelled 9.5 Cardiac Enzymes 04/04/24 Range/Units 14:35 Troponin I 0.013 (0.000-0.034) ng/mL Liver Function 04/04/24 04/04/24 04/04/24 Range/Units 14:35 14:35 14:35 Total Bilirubin Cancelled 0.7 AST Cancelled 25 ALT Cancelled Alkaline Phosphatase Albumin 04/04/24 04/04/24 04/04/24 Range/Units 14:35 14:35 14:35 Total Bilirubin AST ALT 29 Alkaline Phosphatase Cancelled 69 Albumin Cancelled 3.8 Assessment and Plan Assessment and plan (1) Subtherapeutic international normalized ratio (INR): Code(s): R79.1 - Abnormal coagulation profile Status: Acute Assessment and Plan: was started on heparin drip recheck inr in am goal 2.5-3.5 (2) Hyperlipidemia: Code(s): E78.5 - Hyperlipidemia, unspecified Status: Acute Assessment and Plan: resume home meds (3) Aortic valve replaced: Code(s): Z95.2 - Presence of prosthetic heart valve Status: Acute Assessment and Plan: see plan for #1 Plan PT/OT ordered Quality VTE Prophylaxis VTE prophylaxis: pharmacologic ordered Hospitalist MIPS Advance Care Plan I have confirmed that the patient's Advanced Care Plan is present, code status is documented, or surrogate decision maker is listed in patient medical record.: Yes Medication Reconciliation I have utilized all available resources to obtain, update and review the patients current medications (includes all prescriptions, OTC, herbals, cannabis, and nutritional supplements).: Yes
[2024-04-05] MEDS: NIFEdipine 30 MG TAB.ER.24 90 MG PO (08:33)
[2024-04-05] MEDS: ASPIRIN 81 MG CHEWABLE TABLET PO (08:33)
[2024-04-05] MEDS: ATORVASTATIN 40 MG TABLET 80 MG PO (08:33)
[2024-04-05] MEDS: TRIAMTERENE 37.5 MG/HCTZ 25 MG (MAXZIDE) TABLET 1 TAB PO (10:09)
[2024-04-05] MEDS: HEPARIN SOD/D5W 100 UNITS/ML 25,000 UNITS/250 ML BAG 13 UNITS IV CONT (14:23)
[2024-04-05 16:47] LABS: Partial Thromboplastin Time 69.8 Seconds (22.3-36.8)
[2024-04-05] MEDS: HEPARIN SODIUM 5,000 UNITS/ML VIAL 3000 UNITS IV PUSH (17:12)
[2024-04-05] MEDS: WARFARIN (*PBKC) 10 MG TABLET PO (17:18)
[2024-04-05] MEDS: ACETAMINOPHEN 325 MG TABLET 650 MG PO (22:13)
[2024-04-06] VITALS (10 sets, daily range): BP systolic 107–140; BP diastolic 57–62; PULSE 69–104; RESP 16–20; TEMP 36.4–36.8; O2SAT 94–95
[2024-04-06 00:49] LABS: Partial Thromboplastin Time > 200.0 Seconds (22.3-36.8)
[2024-04-06 06:34] LABS: INR 1.9
--- NOTE | 2024-04-06 07:31 | PM.IMPN ---
Progress Note: A&P Assessment and Plan (1) Subtherapeutic international normalized ratio (INR): Code(s): R79.1 - Abnormal coagulation profile Status: Acute Assessment and Plan: Patient has history of mechanical aortic valve. INR 1.2 on 04/04. Goal 2.5-3.5. Patient states he has missed several doses of his warfarin secondary to weakness. - PT/INR 22/1.9 on am labs. Continue warfarin 10 mg daily. Will have to adjust dose at time of discharge. - Started on heparin drip, PTT > 200 - Recheck inr in am - No signs of active bleeding, continue to monitor (2) Aortic valve replaced: Code(s): Z95.2 - Presence of prosthetic heart valve Status: Acute Assessment and Plan: see plan for #1 (3) Hyperlipidemia: Code(s): E78.5 - Hyperlipidemia, unspecified Status: Acute Assessment and Plan: Continue atorvastatin 80 mg daily (4) Weakness: Code(s): R53.1 - Weakness Status: Acute Assessment and Plan: - Head CT: No acute intracranial process - Chest XR: Mild interstitial edema - Viral panel negative - PT/OT (5) Hypertension: Code(s): I10 - Essential (primary) hypertension Status: Acute Assessment and Plan: Chronic, continue home medication - nifedipine 90 mg daily - blood pressures remain stable, continue to monitor Time Spent With Patient Time with patient: 25 - 35 minutes Subjective Date/time seen: 04/06/24 07:31 Interval history: 73 y.o male with PMH/o mechanical aortic valve replacement on warfarin with a pacemaker, hypertension, and hyperlipidemia presents to the hospital for weakness. Patient is pleasant sitting on the side of the bed with son at bedside. He has no complaints denying chest pain, shortness of breath, palpitations, nausea/vomiting and abdominal pain. Review of Systems Review of Systems: All systems reviewed & are unremarkable except as noted in HPI and below Exam Narrative: AF HR 69 RR 20 SpO2 94% BP 107/59 General: male in no acute respiratory distress who is nontoxic appearing, sitting on the side of the bed. HEENT: Normocephalic. Atraumatic. Extraocular movement intact. Sclera clear and anicteric. No facial asymmetry. Chest: Lungs are clear to auscultation bilaterally. No wheezes or crackles. CV: Heart was regular rate and rhythm. S1/S2. No murmurs, gallops, or rubs. Abd: Abdomen was soft. Nontender. Nondistended. Positive bowel sounds. No organomegaly or masses. Ext: No clubbing, cyanosis, or edema. 2+ DP pulses bilaterally. Neuro: Patient is alert. Speech is clear. Objective Data Vital Signs Vital Signs: Vital Signs - 24 hr 04/05/24 08:32 04/05/24 08:33 04/05/24 08:33 Temperature 97.2 F L Pulse Rate 69 69 Respiratory Rate 18 Blood Pressure 137/69 Pulse Oximetry 97 97 Oxygen Delivery Room Air 04/05/24 12:00 04/05/24 13:30 04/05/24 16:00 Temperature 98.4 F Pulse Rate 69 69 69 Respiratory Rate 16 Blood Pressure 108/62 Pulse Oximetry 96 Oxygen Delivery 04/05/24 16:08 04/05/24 19:51 04/05/24 20:10 Temperature 100.0 F H Pulse Rate 71 69 Respiratory Rate 20 20 Blood Pressure 107/61 Pulse Oximetry 93 93 Oxygen Delivery Room Air Room Air 04/05/24 21:02 04/06/24 00:04 04/06/24 04:20 Temperature 98.3 F Pulse Rate 69 69 69 Respiratory Rate 20 Blood Pressure 107/59 L Pulse Oximetry 94 Oxygen Delivery 04/06/24 04:42 Temperature Pulse Rate 69 Respiratory Rate Blood Pressure Pulse Oximetry Oxygen Delivery Intake/Output Intake/Output: Intake & Output 04/03/24 04/04/24 04/05/24 04/06/24 23:59 23:59 23:59 23:59 Intake Total 1056.8 504.8 Output Total 600 600 Balance 456.8 -95.2 Meds/Results Medications: Active Medications Generic Name Dose Route Start Last Admin Trade Name Freq PRN Reason Stop Dose Admin Acetaminophen 650 mg 04/04/24 18:25 04/05/24 22:13 Acetaminophen 325 Mg Tablet PO 650 mg Q4H PRN Administration Mild Pain (1-3) or Fever Aspirin 81 mg 04/05/24 08:00 04/05/24 08:33 Aspirin 81 Mg Chewable Tablet PO 81 mg DAILY@0800 [place] Administration Atorvastatin Calcium 80 mg 04/05/24 09:00 04/05/24 08:33 Atorvastatin 40 Mg Tablet PO 80 mg DAILY [place] Administration Gabapentin 300 mg 04/04/24 23:35 04/05/24 17:18 Gabapentin 300 Mg Capsule PO 300 mg TID [place] Administration Heparin Sodium (Porcine) 6,500 units 04/04/24 18:20 Heparin Sodium 5,000 Units/Ml Vial IV PUSH PRN PRN aPTT less than 55 seconds Heparin Sodium (Porcine) 3,000 units 04/04/24 18:20 04/05/24 17:12 Heparin Sodium 5,000 Units/Ml Vial IV PUSH 3,000 units PRN PRN Administration aPTT 55 - 70 seconds Heparin Sodium/Dextrose 25,000 units in 250 mls @ 13 mls/hr 04/04/24 18:20 04/06/24 01:55 Heparin Sodium/D5w 100 Units/Ml IV CONT 1,300 units/hr .[id number] [place] 13 mls/hr Titration Protocol 1,300 UNITS/HR Nifedipine 90 mg 04/05/24 09:00 04/05/24 08:33 Nifedipine 30 Mg Tab.Er.24 PO 90 mg DAILY [place] Administration Ondansetron HCl 4 mg 04/04/24 18:25 Ondansetron Inj 4 Mg/2 Ml Vial IV PUSH Q4H PRN Nausea Triamterene/Hydrochlorothiazide 1 tab 04/05/24 09:00 04/05/24 10:09 Triamterene 37.5 Mg/Hctz 25 Mg (Maxzide) Tablet PO 1 tab DAILY [place] Administration Warfarin Sodium 10 mg 04/05/24 17:00 04/05/24 17:18 Warfarin (*Pbkc) 10 Mg Tablet PO 10 mg DAILY@1700 [facility] Administration Radiology Results: ITS Impressions Chest X-Ray 04/04/24 14:56 IMPRESSION: Mild interstitial edema. Head CT 04/04/24 17:56 IMPRESSION: No acute intracranial process. Labs Labs: Laboratory Results - last 24 hr 04/05/24 04/06/24 04/06/24 15:54 00:25 05:23 PT 22.0 H D INR 1.9 APTT 69.8 H > 200.0 H* Quality VTE Prophylaxis VTE prophylaxis: pharmacologic ordered
[2024-04-06 07:59] LABS: Hematocrit 33.2 % (42.0-52.0); Hemoglobin 11.2 g/dL (14.0-18.0); Mean Corpuscular HGB Conc 33.7 g/dl (32-36); Mean Corpuscular Hemoglobin 33.2 pg (26-34); Mean Corpuscular Volume 98.5 fl (80-100); Mean Platelet Volume 9.4 fl (7.4-10.4); Platelet Count Result 255 k/mm3 (150-375); Red Blood Count 3.37 M/mm3 (4.6-6.20); Red Cell Distribution Width 13.4 % (11.5-14.5); White Blood Count 10.1 K/mm3 (4.5-10.0)
[2024-04-06] MEDS: ASPIRIN 81 MG CHEWABLE TABLET PO (08:17)
[2024-04-06] MEDS: ATORVASTATIN 40 MG TABLET 80 MG PO (08:17)
[2024-04-06] MEDS: NIFEdipine 30 MG TAB.ER.24 90 MG PO (08:17)
[2024-04-06] MEDS: TRIAMTERENE 37.5 MG/HCTZ 25 MG (MAXZIDE) TABLET 1 TAB PO (08:17)
[2024-04-06] MEDS: GABAPENTIN 300 MG CAPSULE PO ×3 (08:17→16:44)
[2024-04-06 08:20] LABS: Alanine Aminotransferase 23 U/L (6-50); Albumin Level 3.3 g/dL (3.5-5.1); Alkaline Phosphatase 64 U/L (38-126); Anion Gap 8 mmol/L (4-12); Aspartate Amino Transferase 21 U/L (17-59); Bilirubin,Total 0.7 mg/dL (0.2-1.3); Blood Urea Nitrogen 12 mg/dL (9-20); Carbon Dioxide 30 mmol/L (22-30); Chloride 98 mmol/L (98-107); Estimated CRCL calculation 88 ml/min; Estimated Glomerular Filt Rate > 60; Glucose 102 mg/dL (65-110); Potassium 3.6 mmol/L (3.4-5.0); Sodium 136 mmol/L (137-145)
[2024-04-06 08:24] LABS: Partial Thromboplastin Time 134.6 Seconds (22.3-36.8)
[2024-04-06] MEDS: HEPARIN SOD/D5W 100 UNITS/ML 25,000 UNITS/250 ML BAG 11 UNITS IV CONT (11:16)
[2024-04-06] MEDS: ACETAMINOPHEN 325 MG TABLET 650 MG PO (15:03)
[2024-04-06] MEDS: WARFARIN (*PBKC) 10 MG TABLET PO (16:44)
[2024-04-06 18:20] LABS: Partial Thromboplastin Time 92.4 Seconds (22.3-36.8)
[2024-04-07] VITALS (13 sets, daily range): BP systolic 97–127; BP diastolic 62–76; PULSE 69–94; RESP 16; TEMP 36.4–39.2; O2SAT 92–95
[2024-04-07 05:02] LABS: Hematocrit 32.2 % (42.0-52.0); Hemoglobin 11.1 g/dL (14.0-18.0); Mean Corpuscular HGB Conc 34.5 g/dl (32-36); Mean Corpuscular Hemoglobin 33.5 pg (26-34); Mean Corpuscular Volume 97.3 fl (80-100); Mean Platelet Volume 9.5 fl (7.4-10.4); Platelet Count Result 280 k/mm3 (150-375); Red Blood Count 3.31 M/mm3 (4.6-6.20); Red Cell Distribution Width 13.4 % (11.5-14.5); White Blood Count 11.7 K/mm3 (4.5-10.0)
[2024-04-07 05:17] LABS: Alanine Aminotransferase 25 U/L (6-50); Albumin Level 3.5 g/dL (3.5-5.1); Alkaline Phosphatase 65 U/L (38-126); Anion Gap 7 mmol/L (4-12); Aspartate Amino Transferase 23 U/L (17-59); Bilirubin,Total 0.7 mg/dL (0.2-1.3); Blood Urea Nitrogen 14 mg/dL (9-20); Calcium 9.1 mg/dL (8.4-10.2); Carbon Dioxide 30 mmol/L (22-30); Chloride 96 mmol/L (98-107); Estimated CRCL calculation 78 ml/min; Estimated Glomerular Filt Rate > 60; Glucose 106 mg/dL (65-110); Potassium 3.5 mmol/L (3.4-5.0); Sodium 133 mmol/L (137-145)
[2024-04-07 05:39] LABS: Partial Thromboplastin Time 53.5 Seconds (22.3-36.8)
[2024-04-07] MEDS: HEPARIN SODIUM 5,000 UNITS/ML VIAL 6500 UNITS IV PUSH (06:03)
--- NOTE | 2024-04-07 06:56 | PM.IMPN ---
Progress Note: A&P Assessment and Plan (1) Subtherapeutic international normalized ratio (INR): Code(s): R79.1 - Abnormal coagulation profile Status: Acute Assessment and Plan: Patient has history of mechanical aortic valve. INR 1.2 on 04/04. Goal 2.5-3.5. Patient states he has missed several doses of his warfarin secondary to weakness. - PT/INR 40/4 on am labs. Warfarin 10 mg daily placed on hold. Will have to adjust dose at time of discharge. - Discontinue heparin - Recheck inr in am - No signs of active bleeding, continue to monitor (2) Aortic valve replaced: Code(s): Z95.2 - Presence of prosthetic heart valve Status: Acute Assessment and Plan: see plan for #1 (3) Hyperlipidemia: Code(s): E78.5 - Hyperlipidemia, unspecified Status: Acute Assessment and Plan: Continue atorvastatin 80 mg daily (4) Weakness: Code(s): R53.1 - Weakness Status: Acute Assessment and Plan: - Head CT: No acute intracranial process - Chest XR: Mild interstitial edema - Viral panel negative - PT/OT Recommending home health (5) Hypertension: Code(s): I10 - Essential (primary) hypertension Status: Acute Assessment and Plan: Chronic, continue home medication - nifedipine 90 mg daily - blood pressures remain stable, continue to monitor Time Spent With Patient Time with patient: 25 - 35 minutes Subjective Date/time seen: 04/07/24 06:56 Interval history: 73 y.o male with PMH/o mechanical aortic valve replacement on warfarin with a pacemaker, hypertension, and hyperlipidemia presents to the hospital for weakness. Patient is pleasant sitting up in his chair. he has no complaints denying chest pain, shortness a breath, palpitations, nausea / vomiting, and abdominal pain. His INR today is now supratherapeutic. Heparin discontinued and warfarin placed on hold for today. Will continue to monitor. Review of Systems Review of Systems: All systems reviewed & are unremarkable except as noted in HPI and below Exam Narrative: AF HR 69 RR 16 SpO2 92 BP 121/67 General: male in no acute respiratory distress who is nontoxic appearing, sitting up in chair HEENT: Normocephalic. Atraumatic. Extraocular movement intact. Sclera clear and anicteric. No facial asymmetry. Chest: Lungs are clear to auscultation bilaterally. No wheezes or crackles. CV: Heart was regular rate and rhythm. S1/S2. No murmurs, gallops, or rubs. Abd: Abdomen was soft. Nontender. Nondistended. Positive bowel sounds. No organomegaly or masses. Ext: No clubbing, cyanosis, or edema. 2+ DP pulses bilaterally. Neuro: Patient is alert. Speech is clear. Objective Data Vital Signs Vital Signs: Vital Signs - 24 hr 04/06/24 08:00 04/06/24 08:15 04/06/24 12:00 Temperature Pulse Rate 69 69 Respiratory Rate Blood Pressure Pulse Oximetry Oxygen Delivery Room Air 04/06/24 14:00 04/06/24 16:00 04/06/24 20:00 Temperature 97.6 F Pulse Rate 71 69 104 H Respiratory Rate 18 Blood Pressure 113/57 L Pulse Oximetry 94 Oxygen Delivery 04/06/24 20:28 04/06/24 20:40 04/07/24 00:04 Temperature 97.5 F L Pulse Rate 83 83 69 Respiratory Rate 16 16 Blood Pressure 140/62 Pulse Oximetry 95 95 Oxygen Delivery Room Air 04/07/24 04:00 04/07/24 05:08 Temperature 97.6 F Pulse Rate 69 71 Respiratory Rate 16 Blood Pressure 121/67 Pulse Oximetry 94 Oxygen Delivery Intake/Output Intake/Output: Intake & Output 04/04/24 04/05/24 04/06/24 04/07/24 23:59 23:59 23:59 23:59 Intake Total 1056.8 1952.0 657.1 Output Total 600 1850 Balance 456.8 102.0 657.1 Meds/Results Medications: Active Medications Generic Name Dose Route Start Last Admin Trade Name Freq PRN Reason Stop Dose Admin Acetaminophen 650 mg 04/04/24 18:25 04/06/24 15:03 Acetaminophen 325 Mg Tablet PO 650 mg Q4H PRN Administration Mild Pain (1-3) or Fever Aspirin 81 mg 04/05/24 08:00 04/06/24 08:17 Aspirin 81 Mg Chewable Tablet PO 81 mg DAILY@0800 [place] Administration Atorvastatin Calcium 80 mg 04/05/24 09:00 04/06/24 08:17 Atorvastatin 40 Mg Tablet PO 80 mg DAILY [place] Administration Gabapentin 300 mg 04/04/24 23:35 04/06/24 16:44 Gabapentin 300 Mg Capsule PO 300 mg TID [place] Administration Heparin Sodium (Porcine) 6,500 units 04/04/24 18:20 04/07/24 06:03 Heparin Sodium 5,000 Units/Ml Vial IV PUSH 6,500 units PRN PRN Administration aPTT less than 55 seconds Heparin Sodium (Porcine) 3,000 units 04/04/24 18:20 04/05/24 17:12 Heparin Sodium 5,000 Units/Ml Vial IV PUSH 3,000 units PRN PRN Administration aPTT 55 - 70 seconds Heparin Sodium/Dextrose 25,000 units in 250 mls @ 12 mls/hr 04/04/24 18:20 04/07/24 06:02 Heparin Sodium/D5w 100 Units/Ml IV CONT 1,200 units/hr .[id number] [place] 12 mls/hr Titration Protocol 1,200 UNITS/HR Nifedipine 90 mg 04/05/24 09:00 04/06/24 08:17 Nifedipine 30 Mg Tab.Er.24 PO 90 mg DAILY [place] Administration Ondansetron HCl 4 mg 04/04/24 18:25 Ondansetron Inj 4 Mg/2 Ml Vial IV PUSH Q4H PRN Nausea Triamterene/Hydrochlorothiazide 1 tab 04/05/24 09:00 04/06/24 08:17 Triamterene 37.5 Mg/Hctz 25 Mg (Maxzide) Tablet PO 1 tab DAILY [place] Administration Warfarin Sodium 10 mg 04/05/24 17:00 04/06/24 16:44 Warfarin (*Pbkc) 10 Mg Tablet PO 10 mg DAILY@1700 [place] Administration Radiology Results: ITS Impressions Chest X-Ray 04/04/24 14:56 IMPRESSION: Mild interstitial edema. Head CT 04/04/24 17:56 IMPRESSION: No acute intracranial process. Labs Labs: Laboratory Results - last 24 hr 04/06/24 04/06/24 04/06/24 07:30 07:53 17:25 WBC 10.1 H RBC 3.37 L Hgb 11.2 L Hct 33.2 L MCV 98.5 MCH 33.2 MCHC 33.7 RDW 13.4 Plt Count 255 MPV 9.4 APTT 134.6 H 92.4 H Sodium 136 L Potassium 3.6 Chloride 98 Carbon Dioxide 30 Anion Gap 8 BUN 12 Creatinine 0.65 L Estim Creat Clear Calc 88 Estimated GFR > 60 Glucose 102 Calcium 9.0 Total Bilirubin 0.7 AST 21 ALT 23 Alkaline Phosphatase 64 Total Protein 6.0 L Albumin 3.3 L 04/06/24 04/07/24 23:19 04:40 WBC 11.7 H RBC 3.31 L Hgb 11.1 L Hct 32.2 L MCV 97.3 MCH 33.5 MCHC 34.5 RDW 13.4 Plt Count 280 MPV 9.5 APTT 134.0 H 53.5 H Sodium 133 L Potassium 3.5 Chloride 96 L Carbon Dioxide 30 Anion Gap 7 BUN 14 Creatinine 0.74 Estim Creat Clear Calc 78 Estimated GFR > 60 Glucose 106 Calcium 9.1 Total Bilirubin 0.7 AST 23 ALT 25 Alkaline Phosphatase 65 Total Protein 7.0 Albumin 3.5 Quality VTE Prophylaxis VTE prophylaxis: pharmacologic ordered
[2024-04-07] MEDS: ATORVASTATIN 40 MG TABLET 80 MG PO (08:19)
[2024-04-07] MEDS: NIFEdipine 30 MG TAB.ER.24 90 MG PO (08:19)
[2024-04-07] MEDS: GABAPENTIN 300 MG CAPSULE PO ×2 (08:19→13:29)
[2024-04-07] MEDS: TRIAMTERENE 37.5 MG/HCTZ 25 MG (MAXZIDE) TABLET 1 TAB PO (08:19)
[2024-04-07] MEDS: ASPIRIN 81 MG CHEWABLE TABLET PO (08:19)
[2024-04-07 12:49] LABS: Partial Thromboplastin Time > 200.0 Seconds (22.3-36.8)
[2024-04-07 15:40] LABS: Partial Thromboplastin Time 63.5 Seconds (22.3-36.8)
[2024-04-07] MEDS: ACETAMINOPHEN 325 MG TABLET 650 MG PO (18:08)
[2024-04-07] MEDS: SENNA/DOCUSATE SODIUM TABLET 1 TAB PO (20:24)
[2024-04-08] VITALS (10 sets, daily range): BP systolic 97–115; BP diastolic 53–59; PULSE 69–84; RESP 16–18; TEMP 36.5–36.8; O2SAT 92–96
[2024-04-08 06:14] LABS: Hematocrit 32.7 % (42.0-52.0); Hemoglobin 10.8 g/dL (14.0-18.0); Mean Corpuscular Hemoglobin 32.7 pg (26-34); Mean Corpuscular Volume 99.1 fl (80-100); Mean Platelet Volume 9.8 fl (7.4-10.4); Platelet Count Result 284 k/mm3 (150-375); Red Cell Distribution Width 13.2 % (11.5-14.5)
[2024-04-08 06:32] LABS: INR 3.6
[2024-04-08 06:35] LABS: Alanine Aminotransferase 23 U/L (6-50); Albumin Level 3.4 g/dL (3.5-5.1); Alkaline Phosphatase 60 U/L (38-126); Anion Gap 8 mmol/L (4-12); Aspartate Amino Transferase 25 U/L (17-59); Bilirubin,Total 1.1 mg/dL (0.2-1.3); Blood Urea Nitrogen 16 mg/dL (9-20); Calcium 8.9 mg/dL (8.4-10.2); Carbon Dioxide 30 mmol/L (22-30); Chloride 93 mmol/L (98-107); Estimated CRCL calculation 76 ml/min; Estimated Glomerular Filt Rate > 60; Glucose 107 mg/dL (65-110); Potassium 3.6 mmol/L (3.4-5.0); Sodium 131 mmol/L (137-145)
[2024-04-08] MEDS: NIFEdipine 30 MG TAB.ER.24 90 MG PO (08:13)
[2024-04-08] MEDS: ASPIRIN 81 MG CHEWABLE TABLET PO (08:13)
[2024-04-08] MEDS: ACETAMINOPHEN 325 MG TABLET 650 MG PO ×2 (08:13→17:39)
[2024-04-08] MEDS: ATORVASTATIN 40 MG TABLET 80 MG PO (08:13)
[2024-04-08] MEDS: TRIAMTERENE 37.5 MG/HCTZ 25 MG (MAXZIDE) TABLET 1 TAB PO (08:14)
[2024-04-08] MEDS: GABAPENTIN 300 MG CAPSULE PO ×2 (08:14→17:22)
--- NOTE | 2024-04-08 14:22 | PM.IMPN ---
Progress Note: A&P Assessment and Plan (1) Fever: Code(s): R50.9 - Fever, unspecified Status: Acute Assessment and Plan: Temp 102.5 on 04/07. Resolved with tylenol. Patient remains afebrile. - Viral panel ordered - Blood culture ordered - Denies shortness of breath. Chest XR unremarkable. - Denies dysuria, hematuria, burning sensation with urination. Urinalysis ordered. - Continue to monitor (2) Subtherapeutic international normalized ratio (INR): Code(s): R79.1 - Abnormal coagulation profile Status: Acute Assessment and Plan: Patient has history of mechanical aortic valve. INR 1.2 on 04/04. Goal 2.5-3.5. Patient states he has missed several doses of his warfarin secondary to weakness. - PT/INR 37/3.6 on am labs. Warfarin 10 mg daily placed on hold. Will have to adjust dose at time of discharge. - Discontinue heparin - Recheck inr in am - No signs of active bleeding, continue to monitor (3) Aortic valve replaced: Code(s): Z95.2 - Presence of prosthetic heart valve Status: Acute Assessment and Plan: see plan for #1 (4) Hyperlipidemia: Code(s): E78.5 - Hyperlipidemia, unspecified Status: Acute Assessment and Plan: Continue atorvastatin 80 mg daily (5) Weakness: Code(s): R53.1 - Weakness Status: Acute Assessment and Plan: - Head CT: No acute intracranial process - Chest XR: Mild interstitial edema - Viral panel negative - PT/OT Recommending home health (6) Hypertension: Code(s): I10 - Essential (primary) hypertension Status: Acute Assessment and Plan: Chronic, continue home medication - nifedipine 90 mg daily - blood pressures remain stable, continue to monitor Time Spent With Patient Time with patient: 25 - 35 minutes Subjective Date/time seen: 04/08/24 14:22 Interval history: 73 y.o male with PMH/o mechanical aortic valve replacement on warfarin with a pacemaker, hypertension, and hyperlipidemia presents to the hospital for weakness. Patient is pleasant lying in his bed. He became febrile overnight requiring Tylenol which broke the fever. he has no complaints at this time denies chest pain, shortness a breath, palpitations, nausea/ vomiting, and abdominal pain. Chest XR was unremarkable. Denies dysuria, hematuria, burning sensation with urination. Urinalysis ordered. Review of Systems Review of Systems: All systems reviewed & are unremarkable except as noted in HPI and below Exam Narrative: AF HR 69 RR 18 SpO2 94 BP 115/55 General: male in no acute respiratory distress who is nontoxic appearing, lying in bed HEENT: Normocephalic. Atraumatic. Extraocular movement intact. Sclera clear and anicteric. No facial asymmetry. Chest: Lungs are clear to auscultation bilaterally. No wheezes or crackles. CV: Heart was regular rate and rhythm. S1/S2. No murmurs, gallops, or rubs. Abd: Abdomen was soft. Nontender. Nondistended. Positive bowel sounds. No organomegaly or masses. Ext: No clubbing, cyanosis, or edema. 2+ DP pulses bilaterally. Neuro: Patient is alert. Speech is clear. Objective Data Vital Signs Vital Signs: Vital Signs - 24 hr 04/07/24 16:00 04/07/24 18:08 04/07/24 19:19 Temperature 100.5 F H 102.5 F H Pulse Rate 69 Respiratory Rate Blood Pressure Pulse Oximetry Oxygen Delivery 04/07/24 20:00 04/07/24 20:20 04/07/24 20:24 Temperature 99.4 F Pulse Rate 69 94 94 Respiratory Rate 16 16 Blood Pressure 97/76 L Pulse Oximetry 95 95 Oxygen Delivery Room Air 04/08/24 00:04 04/08/24 04:00 04/08/24 05:19 Temperature 98.3 F Pulse Rate 69 77 69 Respiratory Rate 16 Blood Pressure 97/59 L Pulse Oximetry 94 Oxygen Delivery 04/08/24 07:41 04/08/24 08:00 04/08/24 08:15 Temperature 98.2 F Pulse Rate 69 69 Respiratory Rate 16 Blood Pressure 109/58 L Pulse Oximetry 96 Oxygen Delivery Room Air 04/08/24 12:00 04/08/24 14:00 Temperature 97.7 F Pulse Rate 69 69 Respiratory Rate 18 Blood Pressure 115/55 L Pulse Oximetry 94 Oxygen Delivery Intake/Output Intake/Output: Intake & Output 04/05/24 04/06/24 04/07/24 04/08/24 23:59 23:59 23:59 23:59 Intake Total 1056.8 1952.0 2611.2 780 Output Total 600 1850 1000 Balance 456.8 102.0 1611.2 780 Meds/Results Medications: Active Medications Generic Name Dose Route Start Last Admin Trade Name Freq PRN Reason Stop Dose Admin Acetaminophen 650 mg 04/04/24 18:25 04/08/24 08:13 Acetaminophen 325 Mg Tablet PO 650 mg Q4H PRN Administration Mild Pain (1-3) or Fever Aspirin 81 mg 04/05/24 08:00 04/08/24 08:13 Aspirin 81 Mg Chewable Tablet PO 81 mg DAILY@0800 [facility] Administration Atorvastatin Calcium 80 mg 04/05/24 09:00 04/08/24 08:13 Atorvastatin 40 Mg Tablet PO 80 mg DAILY [facility] Administration Gabapentin 300 mg 04/04/24 23:35 04/08/24 12:45 Gabapentin 300 Mg Capsule PO Not Given TID [facility] Nifedipine 90 mg 04/05/24 09:00 04/08/24 08:13 Nifedipine 30 Mg Tab.Er.24 PO 90 mg DAILY [facility] Administration Ondansetron HCl 4 mg 04/04/24 18:25 Ondansetron Inj 4 Mg/2 Ml Vial IV PUSH Q4H PRN Nausea Senna/Docusate Sodium 1 tab 04/07/24 21:00 04/07/24 20:24 Senna/Docusate Sodium Tablet PO 1 tab HS [facility] Administration Triamterene/Hydrochlorothiazide 1 tab 04/05/24 09:00 04/08/24 08:14 Triamterene 37.5 Mg/Hctz 25 Mg (Maxzide) Tablet PO 1 tab DAILY [facility] Administration Warfarin Sodium 10 mg 04/05/24 17:00 04/06/24 16:44 Warfarin (*Pbkc) 10 Mg Tablet PO 10 mg DAILY@1700 [facility] Administration Radiology Results: ITS Impressions Head CT 04/04/24 17:56 IMPRESSION: No acute intracranial process. Chest X-Ray 04/08/24 10:42 IMPRESSION: 1. No acute cardiopulmonary disease. Labs Labs: Laboratory Results - last 24 hr 04/07/24 04/08/24 15:09 05:23 WBC 11.0 H RBC 3.30 L Hgb 10.8 L Hct 32.7 L MCV 99.1 MCH 32.7 MCHC 33.0 RDW 13.2 Plt Count 284 MPV 9.8 PT 37.0 H INR 3.6 APTT 63.5 H Sodium 131 L Potassium 3.6 Chloride 93 L Carbon Dioxide 30 Anion Gap 8 BUN 16 Creatinine 0.76 Estim Creat Clear Calc 76 Estimated GFR > 60 Glucose 107 Calcium 8.9 Total Bilirubin 1.1 AST 25 ALT 23 Alkaline Phosphatase 60 Total Protein 7.0 Albumin 3.4 L Quality VTE Prophylaxis VTE prophylaxis: pharmacologic ordered
--- NOTE | 2024-04-08 15:04 | PC.NURSE ---
On 04/08/24, the student, Carrie Aguirre, provided care and completed [facility] documentation on this patient. I have reviewed the student's documentation and agree with the findings.
[2024-04-08 15:59] LABS: Add Urine Microscopic? YES; Appearance Urine Clear (Clear); Bacteria Urine None Seen /hpf; Bilirubin Urine Negative (Negative); Blood Urine Negative (Negative); Color Urine Dark Yellow (Yellow); Glucose Urine UA Negative (Negative); Ketones Urine Negative (Negative); Leukocyte Esterase Ur Negative LEU/UL (Negative); Nitrate Urine Negative (Negative); Non Pathogenic Casts 0-2; Protein Urine Trace mg/dL (Negative); Specific Grav Ur 1.019 (1.001-1.035); Squamous Epithelial Cell Urine None Seen /hpf (Few); WBC Urine 0-5 /hpf (0-3); pH Urine 5.5 (5.0-9.0)
[2024-04-08 16:27] LABS: Influenza A QL RT-PCR Negative (Negative); Influenza B QL RT-PCR Negative (Negative); RSV RNA, RT-PCR Negative (Negative); SARS-CoV-2 RNA PCR Negative (Negative)
[2024-04-08] MEDS: SENNA/DOCUSATE SODIUM TABLET 1 TAB PO (20:57)
[2024-04-09] VITALS (12 sets, daily range): BP systolic 95–127; BP diastolic 50–70; PULSE 69–78; RESP 16–18; TEMP 36.4–37.8; O2SAT 93–96
--- NOTE | 2024-04-09 | ECHO_ITS ---
Patient Info Name: George Rosa Age: 73 years : 1950 Gender: Male Ht: 70 in Wt: 193 lbs BSA: 2.10 m2 HR: 77 bpm BP: 95 / 50 mmHg Exam Date: 04/09/2024 1:01 PM Exam Location: Echo Lab Exam Room: [facility] Patient Status: Inpatient Admit Date: 04/05/2024 Staff Ordering Physician: Carlita Whitfield PA-C Comb Capper: Lilia Muñoz RDCS Attending Provider: Carlita Whitfield PA-C Referring Physician: Nahid FRIAS; Exam Type: CA echo doppler color flow Study Info Indications - Rule out endocarditis Summary 1. Left ventricular systolic function is normal, estimated at 60-65%. 2. Pacemaker /AICD wire seen in right atrium and ventricle. 3. There is mild regurgitation of the mechanical aortic valve. Elevated mean gradient across aortic valve consistent with severe aortic stenosis. Mean gradient of 43mmHG and peak velocity 4.4 m/s. Consider YOSVANY for further evaluation. 4. There is trace tricuspid valve regurgitation. 5. The aortic root size at the sinus of Valsalva is mildly dilated and measures 4 cm.. 6. The prox ascending aorta size is mildly dilated.and measures 4 cm. Left Ventricle Left ventricular chamber dimension is normal. Left ventricular systolic function is normal, estimated at 60-65%. There is no increased left ventricular wall thickness. Left ventricular septal wall motion is normal. The left ventricular diastolic function is abnormal. Right Ventricle Right ventricular chamber dimension is normal. Right ventricular systolic function is normal. Pacemaker /AICD wire seen in right atrium and ventricle. Left Atria Left atrial chamber dimension is normal. Right Atria Right atrial chamber dimension is normal. Atrial Septum Intact interatrial septum visualized by color flow imaging. Aortic Valve There is mild regurgitation of the mechanical aortic valve. Elevated mean gradient across aortic valve consistent with severe aortic stenosis. Mean gradient of 43mmHG and peak velocity 4.4 m/s. Consider YOSVANY for further evaluation. Pulmonic Valve The pulmonic valve is normal. There is no pulmonic valve stenosis. There is no pulmonic regurgitation. Mitral Valve The mitral valve has normal leaflets. There is no mitral valve stenosis. There is no mitral valve regurgitation. Tricuspid Valve The tricuspid valve leaflets are normal. There is no significant tricuspid valve stenosis. There is trace tricuspid valve regurgitation. Pericardium/Pleural The pericardium appears normal. There is no pericardial effusion. Inferior Vena Cava Normal inferior vena cava with >50% collapse upon inspiration consistent with Empty right atrial pressure, 5 mmHg. Aorta The aortic root size at the sinus of Valsalva is mildly dilated and measures 4 cm.. The prox ascending aorta size is mildly dilated.and measures 4 cm. Left Ventricular Outflow Tract Name Value Normal LVOT 2D LVOT Diameter 2.4 cm LVOT Doppler LVOT Peak Gradient 7 mmHg LVOT Mean Gradient 4 mmHg LVOT VTI 24 cm LVOT VTI/AV VTI Ratio 0.3 LVOT Stroke Volume 106 ml LVOT CO 7.3 l/min LVOT CI 3.5 l/min/m2 Pulmonic Valve Name Value Normal PV Doppler PV Peak Gradient 5 mmHg Mitral Valve Name Value Normal MV Doppler MV Peak Gradient 12 mmHg MV Mean Gradient 3 mmHg MV Decel [place] 427 cm/s2 MV PHT 97 ms MV Area (PHT) 2.3 cm2 4.0-5.0 MV Area (Cont Eq VTI) 2.5 cm2 MV Regurgitation Doppler MR Peak Gradient 156 mmHg MV Diastolic Function MV E Peak Velocity 143 cm/s MV A Peak Velocity 58 cm/s MV E/A 2.5 MV Decel Time 334 ms MV Annular TDI MV E/e' (Septal) 26.5 <=8.0 MV E/e' (Lateral) 16.2 <=8.0 MV E/e' (Average) 21.4 Tricuspid Valve Name Value Normal TV Regurgitation Doppler TR Peak Velocity 488 cm/s TR Peak Gradient 63 mmHg Estimated PAP/RSVP RA Pressure 5 mmHg <=5 PA Systolic Pressure 100 mmHg <36 RV Systolic Pressure 100 mmHg <36 Aortic Valve Name Value Normal AV Doppler AV Peak Velocity 444 cm/s AV Peak Gradient 79 mmHg AV Mean Gradient 43 mmHg AV VTI 83 cm AV Area (Cont Eq VTI) 1.3 cm2 >=3.0 AV Area (Cont Eq Ba) 1.4 cm2 AV Regurgitation 2D LVOT Area 4.5 cm2 AV Regurgitation Doppler AR Decel Time 1,606 ms AR Decel [place] 288 cm/s2 AR PHT 466 ms Ventricles Name Value Normal LV Dimensions 2D/MM IVS Diastolic Thickness (2D) 1.0 cm 0.6-1.0 LVID Diastole (2D) 5.6 cm 4.2-5.8 LVIW Diastolic Thickness (2D) 1.0 cm 0.6-1.0 LVID Systole (2D) 4.1 cm 2.5-4.0 LVOT Diameter 2.4 cm LV Mass (2D Cubed) 219.27 g 88.00-224.00 LV Mass Index (2D Cubed) 105 g/m2 49-115 Relative Wall Thickness (2D) 0.35 LV Fractional Shortening/Ejection Fraction 2D/MM LV Fractional Shortening (2D) 26 % 25-43 LV EF (2D Teicholz) 51 % 52-72 LV Diastolic Volume (4C MOD) 142 ml LV EF (4C MOD) 56 % LV Diastolic Volume (2C MOD) 159 ml LV EF (2C MOD) 56 % LV Diastolic Volume (BP MOD) 163 ml 62-150 LV Diastolic Volume Index (BP MOD) 78 ml/m2 34-74 LV Systolic Volume (BP MOD) 70 ml 21-61 LV Systolic Volume Index (BP MOD) 33 ml/m2 11-31 LV EF (BP MOD) 57 % 52-72 LV Diastolic Length (4C) 8.3 cm LV Systolic Length (4C) 7.9 cm LV Stroke Volume (4C MOD) 80 ml LV CO (BP MOD) 6.4 l/min LV CI (BP MOD) 3.1 l/min/m2 Atria Name Value Normal RA Dimensions RA Area (4C) 22.3 cm2 <=18.0 Report Signatures
[2024-04-09 05:36] LABS: Hematocrit 32.7 % (42.0-52.0); Hemoglobin 10.6 g/dL (14.0-18.0); Mean Corpuscular HGB Conc 32.4 g/dl (32-36); Mean Corpuscular Hemoglobin 31.9 pg (26-34); Mean Corpuscular Volume 98.5 fl (80-100); Mean Platelet Volume 9.6 fl (7.4-10.4); Platelet Count Result 293 k/mm3 (150-375); Red Blood Count 3.32 M/mm3 (4.6-6.20); Red Cell Distribution Width 13.2 % (11.5-14.5); White Blood Count 12.1 K/mm3 (4.5-10.0)
[2024-04-09 05:51] LABS: INR 3.3; Prothrombin Time 34.4 Seconds (11.1-14.7)
[2024-04-09 05:55] LABS: Alanine Aminotransferase 22 U/L (6-50); Albumin Level 3.3 g/dL (3.5-5.1); Alkaline Phosphatase 63 U/L (38-126); Anion Gap 9 mmol/L (4-12); Aspartate Amino Transferase 20 U/L (17-59); Blood Urea Nitrogen 19 mg/dL (9-20); Calcium 8.7 mg/dL (8.4-10.2); Carbon Dioxide 26 mmol/L (22-30); Chloride 95 mmol/L (98-107); Estimated CRCL calculation 82 ml/min; Estimated Glomerular Filt Rate > 60; Glucose 109 mg/dL (65-110); Potassium 3.4 mmol/L (3.4-5.0); Sodium 130 mmol/L (137-145)
[2024-04-09] MEDS: TRIAMTERENE 37.5 MG/HCTZ 25 MG (MAXZIDE) TABLET 1 TAB PO (08:34)
[2024-04-09] MEDS: ATORVASTATIN 40 MG TABLET 80 MG PO (08:35)
[2024-04-09] MEDS: NIFEdipine 30 MG TAB.ER.24 90 MG PO (08:35)
[2024-04-09] MEDS: ASPIRIN 81 MG CHEWABLE TABLET PO (08:36)
[2024-04-09] MEDS: GABAPENTIN 300 MG CAPSULE PO ×3 (08:36→17:21)
--- NOTE | 2024-04-09 12:03 | P.PNIM_ITS ---
Progress Note: A&P Assessment and Plan (1) Bacteremia: Code(s): R78.81 - Bacteremia Status: Acute Assessment and Plan: Unknown etiology. Patient has no open wounds, chest XR negative, UA nonconcerning for infection. - Blood culture: Gram + cocci in both bottles - Repeat blood cultures on 04/11 - Echo ordered to rule out endocarditis - Antibiotics: Started on vancomycin on 04/09 - Continue to monitor (2) Fever: Code(s): R50.9 - Fever, unspecified Status: Acute Assessment and Plan: Temp 102.5 on 04/07 overnight. Resolved with Tylenol. Patient remains afebrile. - Viral panel: Negative for flu/covid/rsv - Blood culture: Gram + cocci in both bottles - Denies shortness of breath. Chest XR unremarkable. - Denies dysuria, hematuria, burning sensation with urination. Urinalysis non concerning for infection. - CT abdomen/pelvis ordered - Echo ordered to rule out endocarditis - Antibiotics: Started on vancomycin on 04/09 - Continue to monitor (3) Subtherapeutic international normalized ratio (INR): Code(s): R79.1 - Abnormal coagulation profile Status: Acute Assessment and Plan: Patient has history of mechanical aortic valve. INR 1.2 on 04/04. Goal 2.5-3.5. Patient states he has missed several doses of his warfarin secondary to weakness. - PT/INR 34.4/3.3 on am labs. - Warfarin 5 mg restarted - Recheck inr in am - No signs of active bleeding, continue to monitor (4) Aortic valve replaced: Code(s): Z95.2 - Presence of prosthetic heart valve Status: Acute Assessment and Plan: see plan for #1 (5) Hyperlipidemia: Code(s): E78.5 - Hyperlipidemia, unspecified Status: Acute Assessment and Plan: Continue atorvastatin 80 mg daily (6) Weakness: Code(s): R53.1 - Weakness Status: Acute Assessment and Plan: - Head CT: No acute intracranial process - Chest XR: Mild interstitial edema - Viral panel negative - PT/OT Recommending home health (7) Hypertension: Code(s): I10 - Essential (primary) hypertension Status: Acute Assessment and Plan: Chronic, continue home medication - nifedipine 90 mg daily - blood pressures remain stable, continue to monitor Time Spent With Patient Time with patient: 25 - 35 minutes Subjective Date/time seen: 04/09/24 12:03 Interval history: 73 y.o male with PMH/o mechanical aortic valve replacement on warfarin with a pacemaker, hypertension, and hyperlipidemia presents to the hospital for weakness. Patient is pleasant sitting up in his chair. He has no complaints at this time denying chest pain, shortness a breath, palpitations, nausea/vomiting, and abdominal pain. Discussed blood cultures and the treatment plan with patient and son. All questions were answered at that time. Review of Systems Review of Systems: All systems reviewed & are unremarkable except as noted in HPI and below Exam Narrative: AF HR 69 RR 16 SPO2 93 BP 95/50 General: male in no acute respiratory distress who is nontoxic appearing, lying in bed HEENT: Normocephalic. Atraumatic. Extraocular movement intact. Sclera clear and anicteric. No facial asymmetry. Chest: Lungs are clear to auscultation bilaterally. No wheezes or crackles. CV: Heart was regular rate and rhythm. S1/S2. No murmurs, gallops, or rubs. Abd: Abdomen was soft. Nontender. Nondistended. Positive bowel sounds. No organomegaly or masses. Ext: No clubbing, cyanosis, or edema. 2+ DP pulses bilaterally. Neuro: Patient is alert. Speech is clear. Objective Data Vital Signs Vital Signs: Vital Signs - 24 hr 04/08/24 14:00 04/08/24 16:00 04/08/24 19:40 Temperature 97.7 F 97.7 F Pulse Rate 69 84 69 Respiratory Rate 18 16 Blood Pressure 115/55 L 111/53 L Pulse Oximetry 94 92 Oxygen Delivery 04/08/24 20:00 04/09/24 00:00 04/09/24 04:00 Temperature Pulse Rate 69 71 69 Respiratory Rate Blood Pressure Pulse Oximetry Oxygen Delivery 04/09/24 05:05 04/09/24 08:00 04/09/24 08:35 Temperature 97.6 F Pulse Rate 69 70 Respiratory Rate 16 Blood Pressure 95/50 L Pulse Oximetry 93 Oxygen Delivery Room Air Intake/Output Intake/Output: Intake & Output 04/06/24 04/07/24 04/08/24 04/09/24 23:59 23:59 23:59 23:59 Intake Total 1952.0 2611.2 1530 540 Output Total 1850 1000 1300 Balance 102.0 1611.2 230 540 Meds/Results Medications: Active Medications Generic Name Dose Route Start Last Admin Trade Name Freq PRN Reason Stop Dose Admin Acetaminophen 650 mg 04/04/24 18:25 04/08/24 17:39 Acetaminophen 325 Mg Tablet PO 650 mg Q4H PRN Administration Mild Pain (1-3) or Fever Aspirin 81 mg 04/05/24 08:00 04/09/24 08:36 Aspirin 81 Mg Chewable Tablet PO 81 mg DAILY@0800 [facility] Administration Atorvastatin Calcium 80 mg 04/05/24 09:00 04/09/24 08:35 Atorvastatin 40 Mg Tablet PO 80 mg DAILY [facility] Administration Gabapentin 300 mg 04/04/24 23:35 04/09/24 08:36 Gabapentin 300 Mg Capsule PO 300 mg TID [facility] Administration Nifedipine 90 mg 04/05/24 09:00 04/09/24 08:35 Nifedipine 30 Mg Tab.Er.24 PO 90 mg DAILY [facility] Administration Ondansetron HCl 4 mg 04/04/24 18:25 Ondansetron Inj 4 Mg/2 Ml Vial IV PUSH Q4H PRN Nausea Senna/Docusate Sodium 1 tab 04/07/24 21:00 04/08/24 20:57 Senna/Docusate Sodium Tablet PO 1 tab HS [facility] Administration Triamterene/Hydrochlorothiazide 1 tab 04/05/24 09:00 04/09/24 08:34 Triamterene 37.5 Mg/Hctz 25 Mg (Maxzide) Tablet PO 1 tab DAILY [facility] Administration Warfarin Sodium 5 mg 04/09/24 17:00 Warfarin (*Pbkc) 5 Mg Tablet PO DAILY@1700 [facility] Radiology Results: ITS Impressions Head CT 04/04/24 17:56 IMPRESSION: No acute intracranial process. Chest X-Ray 04/08/24 10:42 IMPRESSION: 1. No acute cardiopulmonary disease. Labs Labs: Laboratory Results - last 24 hr 04/08/24 04/09/24 15:33 04:50 WBC 12.1 H RBC 3.32 L Hgb 10.6 L Hct 32.7 L MCV 98.5 MCH 31.9 MCHC 32.4 RDW 13.2 Plt Count 293 MPV 9.6 PT 34.4 H INR 3.3 Sodium 130 L Potassium 3.4 Chloride 95 L Carbon Dioxide 26 Anion Gap 9 BUN 19 Creatinine 0.70 Estim Creat Clear Calc 82 Estimated GFR > 60 Glucose 109 Calcium 8.7 Total Bilirubin 1.0 AST 20 ALT 22 Alkaline Phosphatase 63 Total Protein 7.0 Albumin 3.3 L Urine Color Dark yellow Urine Appearance Clear Urine pH 5.5 Ur Specific [place] 1.019 Urine Protein Trace Urine Glucose (UA) Negative Urine Ketones Negative Ur Blood (Man) Negative Urine Nitrate Negative Urine Bilirubin Negative Urine Urobilinogen 1.0 Ur Leukocyte Esterase Negative Urine RBC 3-5 H Urine WBC 0-5 Ur Squamous Epith Cells None seen Urine Bacteria None seen Urine Casts 0-2 Influenza A (RT-PCR) Negative Influenza B (RT-PCR) Negative RSV (RT-PCR) Negative SARS-CoV-2 RNA (RT-PCR) Negative Quality VTE Prophylaxis VTE prophylaxis: pharmacologic ordered
[2024-04-09] MEDS: VANCOMYCIN 1,250 MG/NS 250 ML 1,250 MG/250 ML BAG 166.67 MG IVPB (14:31)
[2024-04-09] MEDS: polyethylene glycoL 3350 17 GM POWD.PACK PO (14:32)
[2024-04-09] MEDS: VANCOMYCIN 1,000 MG/NS 250 ML 1,000 MG/250 ML BAG 250 MG IVPB (16:04)
[2024-04-09] MEDS: WARFARIN (*PBKC) 5 MG TABLET PO (17:21)
[2024-04-09] MEDS: SENNA/DOCUSATE SODIUM TABLET 1 TAB PO (21:18)
[2024-04-09] MEDS: MELATONIN 3 MG TABLET PO (21:18)
[2024-04-09] MEDS: ACETAMINOPHEN 325 MG TABLET 650 MG PO (21:50)
[2024-04-10] VITALS (11 sets, daily range): BP systolic 100–128; BP diastolic 50–68; PULSE 69–82; RESP 16–20; TEMP 36.1–37.3; O2SAT 92–95
[2024-04-10] MEDS: VANCOMYCIN 1,500 MG/NS 500 ML 1,500 MG/500 ML BAG 250 MG IVPB (02:41)
[2024-04-10 05:22] LABS: Hematocrit 30.8 % (42.0-52.0); Hemoglobin 10.2 g/dL (14.0-18.0); Mean Corpuscular HGB Conc 33.1 g/dl (32-36); Mean Corpuscular Hemoglobin 32.7 pg (26-34); Mean Corpuscular Volume 98.7 fl (80-100); Mean Platelet Volume 9.6 fl (7.4-10.4); Platelet Count Result 272 k/mm3 (150-375); Red Blood Count 3.12 M/mm3 (4.6-6.20); Red Cell Distribution Width 13.3 % (11.5-14.5); White Blood Count 11.4 K/mm3 (4.5-10.0)
[2024-04-10 05:32] LABS: INR 4.8; Prothrombin Time 45.8 Seconds (11.1-14.7)
[2024-04-10 05:33] LABS: Alanine Aminotransferase 20 U/L (6-50); Albumin Level 3.3 g/dL (3.5-5.1); Alkaline Phosphatase 65 U/L (38-126); Anion Gap 8 mmol/L (4-12); Aspartate Amino Transferase 20 U/L (17-59); Bilirubin,Total 0.8 mg/dL (0.2-1.3); Blood Urea Nitrogen 17 mg/dL (9-20); Calcium 8.5 mg/dL (8.4-10.2); Carbon Dioxide 27 mmol/L (22-30); Chloride 98 mmol/L (98-107); Estimated CRCL calculation 75 ml/min; Estimated Glomerular Filt Rate > 60; Glucose 113 mg/dL (65-110); Potassium 3.6 mmol/L (3.4-5.0); Sodium 133 mmol/L (137-145)
--- NOTE | 2024-04-10 07:26 | PM.IMPN ---
Progress Note: A&P Assessment and Plan (1) Bacteremia: Code(s): R78.81 - Bacteremia Status: Acute Assessment and Plan: Unknown etiology. Patient has no open wounds, chest XR negative, UA nonconcerning for infection. CT showing cholelithiasis with gallbladder hydrops, however bili and LFTs unremarkable. - Blood culture: Preliminary - Enterococcus faecalis - Repeat blood cultures on 04/11 - Echo ordered to rule out endocarditis LVEF 60-65% with mild regurgitation of the mechanical aortic valve and severe aortic stenosis. Consider YOSVANY. - YOSVANY ordered - Antibiotics: Started on vancomycin on 04/09, transitioned to ampicillin on 04/10 - Continue to monitor (2) Fever: Code(s): R50.9 - Fever, unspecified Status: Acute Assessment and Plan: Temp 102.5 on 04/07 overnight. Resolved with Tylenol. Patient remains afebrile, however temperature did get to 100.1 overnight. - Viral panel: Negative for flu/covid/rsv - Blood culture: Preliminary - Enterococcus faecalis - Denies shortness of breath. Chest XR unremarkable. - Denies dysuria, hematuria, burning sensation with urination. Urinalysis non concerning for infection. - CT abdomen/pelvis: Cholelithiasis and mild gallbladder hydrops, without inflammatory changes, correlate with biliary labs. Cystitis versus urinary bladder wall thickening from chronic outlet obstruction. Otherwise, no acute abdominopelvic process detected. 3.7 cm infrarenal abdominal aortic aneurysm, recommend CT of the abdomen and pelvis with contrast in 2 years for follow-up. - Echo ordered to rule out endocarditis LVEF 60-65% with mild regurgitation of the mechanical aortic valve and severe aortic stenosis. Consider YOSVANY. - YOSVANY ordered - Antibiotics: Started on vancomycin on 04/09, transitioned to ampicillin on 04/10 - Continue to monitor (3) Subtherapeutic international normalized ratio (INR): Code(s): R79.1 - Abnormal coagulation profile Status: Acute Assessment and Plan: Patient has history of mechanical aortic valve. INR 1.2 on 04/04. Goal 2.5-3.5. Patient states he has missed several doses of his warfarin secondary to weakness. - PT/INR 34.4/3.3 on 04/09. Warfarin resumed at 5 mg - PT/INR 45.8/4.8 on 04/10. Warfarin again placed on hold. - Recheck inr in am - No signs of active bleeding, continue to monitor (4) Aortic valve replaced: Code(s): Z95.2 - Presence of prosthetic heart valve Status: Acute Assessment and Plan: see plan for #1 (5) Hyperlipidemia: Code(s): E78.5 - Hyperlipidemia, unspecified Status: Acute Assessment and Plan: Continue atorvastatin 80 mg daily (6) Weakness: Code(s): R53.1 - Weakness Status: Acute Assessment and Plan: - Head CT: No acute intracranial process - Chest XR: Mild interstitial edema - Viral panel negative - PT/OT Recommending home health (7) Hypertension: Code(s): I10 - Essential (primary) hypertension Status: Acute Assessment and Plan: Chronic, continue home medication - nifedipine 90 mg daily - blood pressures remain stable, continue to monitor Time Spent With Patient Time with patient: 25 - 35 minutes Subjective Date/time seen: 04/10/24 07:26 Interval history: 73 y.o male with PMH/o mechanical aortic valve replacement on warfarin with a pacemaker, hypertension, and hyperlipidemia presents to the hospital for weakness. Patient is pleasant lying comfortably in bed. He states that he is feeling much better today and has no complaints denying chest pain, shortness a breath, palpitations, nausea /vomiting, and abdominal pain. Discussed with patient his INR level was elevated and we have to hold his warfarin again. Also discussed with him that we will be getting a YOSVANY to further rule out endocarditis due to the Gram-positive bacteremia. He states understanding. Review of Systems Review of Systems: All systems reviewed & are unremarkable except as noted in HPI and below Exam Narrative: AF HR 82 RR 16 SpO2 92 BP 128/60 General: male in no acute respiratory distress who is nontoxic appearing, lying in bed HEENT: Normocephalic. Atraumatic. No facial asymmetry. Chest: Lungs are clear to auscultation bilaterally. No wheezes or crackles. CV: Heart was regular rate and rhythm. S1/S2. No murmurs, gallops, or rubs. Abd: Abdomen was soft. Nontender. Nondistended. Positive bowel sounds. Ext: No clubbing, cyanosis, or edema. 2+ DP pulses bilaterally. Objective Data Vital Signs Vital Signs: Vital Signs - 24 hr 04/09/24 08:00 04/09/24 08:35 04/09/24 12:00 Temperature Pulse Rate 70 77 Respiratory Rate Blood Pressure Pulse Oximetry Oxygen Delivery Room Air 04/09/24 14:00 04/09/24 16:00 04/09/24 20:00 Temperature 98.7 F Pulse Rate 78 69 69 Respiratory Rate 18 Blood Pressure 127/53 L Pulse Oximetry 96 Oxygen Delivery 04/09/24 21:20 04/09/24 21:44 04/09/24 21:50 Temperature 100.1 F H 100.1 F H Pulse Rate 77 77 Respiratory Rate 18 18 Blood Pressure 112/70 Pulse Oximetry 95 95 Oxygen Delivery Room Air 04/09/24 22:50 04/10/24 00:03 04/10/24 04:00 Temperature 99.7 F H Pulse Rate 69 69 Respiratory Rate Blood Pressure Pulse Oximetry Oxygen Delivery 04/10/24 04:55 Temperature 99.2 F Pulse Rate 69 Respiratory Rate 20 Blood Pressure 100/50 L Pulse Oximetry 93 Oxygen Delivery Intake/Output Intake/Output: Intake & Output 04/07/24 04/08/24 04/09/24 04/10/24 23:59 23:59 23:59 23:59 Intake Total 2611.2 1530 1400 400 Output Total 1000 1300 2 Balance 1611.2 230 1398 400 Meds/Results Medications: Active Medications Generic Name Dose Route Start Last Admin Trade Name Sebastianq PRN Reason Stop Dose Admin Acetaminophen 650 mg 04/04/24 18:25 04/09/24 21:50 Acetaminophen 325 Mg Tablet PO 650 mg Q4H PRN Administration Mild Pain (1-3) or Fever Aspirin 81 mg 04/05/24 08:00 04/09/24 08:36 Aspirin 81 Mg Chewable Tablet PO 81 mg DAILY@0800 [place] Administration Atorvastatin Calcium 80 mg 04/05/24 09:00 04/09/24 08:35 Atorvastatin 40 Mg Tablet PO 80 mg DAILY [place] Administration Gabapentin 300 mg 04/04/24 23:35 04/09/24 17:21 Gabapentin 300 Mg Capsule PO 300 mg TID [place] Administration Vancomycin HCl 1,500 mg in 500 mls @ 250 mls/hr 04/10/24 03:00 04/10/24 02:41 Vancomycin 1,500 Mg/Ns 500 Ml IVPB 250 mls/hr Q12H [place] Administration Melatonin 3 mg 04/09/24 21:00 04/09/24 21:18 Melatonin 3 Mg Tablet PO 3 mg HS [place] Administration Nifedipine 90 mg 04/05/24 09:00 04/09/24 08:35 Nifedipine 30 Mg Tab.Er.24 PO 90 mg DAILY [place] Administration Ondansetron HCl 4 mg 04/04/24 18:25 Ondansetron Inj 4 Mg/2 Ml Vial IV PUSH Q4H PRN Nausea Perflutren Lipid Microsphere 0 ml 04/09/24 12:09 Perflutren Lipid Microspheres 1.5 Ml Vial Diluted To 10 Ml Total Volume IV PUSH 04/12/24 12:09 ONCE PRN adequate visualization Protocol Polyethylene Glycol 17 gm 04/09/24 14:15 04/09/24 14:32 Polyethylene Glycol 3350 17 Gm Powd.Pack PO 17 gm QAM PRN Administration Constipation Senna/Docusate Sodium 1 tab 04/07/24 21:00 04/09/24 21:18 Senna/Docusate Sodium Tablet PO 1 tab HS [place] Administration Triamterene/Hydrochlorothiazide 1 tab 04/05/24 09:00 04/09/24 08:34 Triamterene 37.5 Mg/Hctz 25 Mg (Maxzide) Tablet PO 1 tab DAILY [place] Administration Warfarin Sodium 5 mg 04/09/24 17:00 04/09/24 17:21 Warfarin (*Pbkc) 5 Mg Tablet PO 5 mg DAILY@1700 [place] Administration Radiology Results: ITS Impressions Head CT 04/04/24 17:56 IMPRESSION: No acute intracranial process. Chest X-Ray 04/08/24 10:42 IMPRESSION: 1. No acute cardiopulmonary disease. Abdomen/Pelvis CT 04/09/24 18:00 IMPRESSION: Cholelithiasis and mild gallbladder hydrops, without inflammatory changes, correlate with biliary labs. Cystitis versus urinary bladder wall thickening from chronic outlet obstruction. Otherwise, no acute abdominopelvic process detected. 3.7 cm infrarenal abdominal aortic aneurysm, recommend CT of the abdomen and pelvis with contrast in 2 years for follow-up. Labs Labs: Laboratory Results - last 24 hr 04/10/24 04:40 WBC 11.4 H RBC 3.12 L Hgb 10.2 L Hct 30.8 L MCV 98.7 MCH 32.7 MCHC 33.1 RDW 13.3 Plt Count 272 MPV 9.6 PT 45.8 H D INR 4.8 Sodium 133 L Potassium 3.6 Chloride 98 Carbon Dioxide 27 Anion Gap 8 BUN 17 Creatinine 0.77 Estim Creat Clear Calc 75 Estimated GFR > 60 Glucose 113 H Calcium 8.5 Total Bilirubin 0.8 AST 20 ALT 20 Alkaline Phosphatase 65 Total Protein 7.0 Albumin 3.3 L Quality VTE Prophylaxis VTE prophylaxis: pharmacologic ordered
[2024-04-10] MEDS: ASPIRIN 81 MG CHEWABLE TABLET PO (09:15)
[2024-04-10] MEDS: NIFEdipine 30 MG TAB.ER.24 90 MG PO (09:16)
[2024-04-10] MEDS: TRIAMTERENE 37.5 MG/HCTZ 25 MG (MAXZIDE) TABLET 1 TAB PO (09:16)
[2024-04-10] MEDS: GABAPENTIN 300 MG CAPSULE PO ×3 (09:16→16:34)
[2024-04-10] MEDS: ATORVASTATIN 40 MG TABLET 80 MG PO (09:16)
[2024-04-10] MEDS: AMPICILLIN 2 GM/NS 100 ML 2 GM/100 ML BAG IVPB ×3 (13:10→20:27)
[2024-04-10] MEDS: SENNA/DOCUSATE SODIUM TABLET 1 TAB PO (20:27)
[2024-04-10] MEDS: MELATONIN 3 MG TABLET PO (20:27)
[2024-04-11] VITALS (10 sets, daily range): BP systolic 106–123; BP diastolic 60–64; PULSE 69–80; RESP 16–20; TEMP 35.8–36.9; O2SAT 91–95
[2024-04-11] MEDS: AMPICILLIN 2 GM/NS 100 ML 2 GM/100 ML BAG IVPB ×6 (00:07→20:09)
[2024-04-11 06:27] LABS: Hematocrit 29.6 % (42.0-52.0); Hemoglobin 9.8 g/dL (14.0-18.0); Mean Corpuscular HGB Conc 33.1 g/dl (32-36); Mean Corpuscular Hemoglobin 32.5 pg (26-34); Mean Platelet Volume 9.6 fl (7.4-10.4); Platelet Count Result 295 k/mm3 (150-375); Red Blood Count 3.02 M/mm3 (4.6-6.20); Red Cell Distribution Width 13.2 % (11.5-14.5); White Blood Count 11.1 K/mm3 (4.5-10.0)
[2024-04-11 06:43] LABS: Alanine Aminotransferase 20 U/L (6-50); Albumin Level 3.2 g/dL (3.5-5.1); Alkaline Phosphatase 70 U/L (38-126); Anion Gap 10 mmol/L (4-12); Aspartate Amino Transferase 22 U/L (17-59); Bilirubin,Total 0.8 mg/dL (0.2-1.3); Blood Urea Nitrogen 17 mg/dL (9-20); Calcium 8.5 mg/dL (8.4-10.2); Carbon Dioxide 26 mmol/L (22-30); Chloride 95 mmol/L (98-107); Estimated CRCL calculation 76 ml/min; Estimated Glomerular Filt Rate > 60; Glucose 114 mg/dL (65-110); Potassium 3.2 mmol/L (3.4-5.0); Sodium 131 mmol/L (137-145)
[2024-04-11 06:51] LABS: Prothrombin Time 49.4 Seconds (11.1-14.7)
--- NOTE | 2024-04-11 07:09 | PM.IMPN ---
Progress Note: A&P Assessment and Plan (1) Bacteremia: Code(s): R78.81 - Bacteremia Status: Acute Assessment and Plan: Unknown etiology. Patient has no open wounds, chest XR negative, UA nonconcerning for infection. CT showing cholelithiasis with gallbladder hydrops, however bili and LFTs unremarkable. - Blood culture: Preliminary - Enterococcus faecalis - Repeat blood cultures on 04/11: Pending - Echo ordered to rule out endocarditis LVEF 60-65% with mild regurgitation of the mechanical aortic valve and severe aortic stenosis. Consider YOSVANY. - YOSVANY ordered, cardiology consulted. Plan for YOSVANY on 04/12. - Antibiotics: Started on vancomycin on 04/09, transitioned to ampicillin 2g IV q4H on 04/10 and started on rocephin 2g IV BID on 04/11 for endocarditis ppx - Continue to monitor (2) Fever: Code(s): R50.9 - Fever, unspecified Status: Acute Assessment and Plan: Temp 102.5 on 04/07 overnight. Resolved with Tylenol. Patient remains afebrile - Viral panel: Negative for flu/covid/rsv - Blood culture: Preliminary - Enterococcus faecalis - Denies shortness of breath. Chest XR unremarkable. - Denies dysuria, hematuria, burning sensation with urination. Urinalysis non concerning for infection. - CT abdomen/pelvis: Cholelithiasis and mild gallbladder hydrops, without inflammatory changes, correlate with biliary labs. Cystitis versus urinary bladder wall thickening from chronic outlet obstruction. Otherwise, no acute abdominopelvic process detected. 3.7 cm infrarenal abdominal aortic aneurysm, recommend CT of the abdomen and pelvis with contrast in 2 years for follow-up. - Echo ordered to rule out endocarditis LVEF 60-65% with mild regurgitation of the mechanical aortic valve and severe aortic stenosis. Consider YOSVANY. - YOSVANY ordered, cardiology consulted. Plan for YOSVANY on 04/12. - Antibiotics: Started on vancomycin on 04/09, transitioned to ampicillin 2g IV q4H on 04/10 and started on rocephin 2g IV BID on 04/11 for endocarditis ppx - Continue to monitor (3) Subtherapeutic international normalized ratio (INR): Code(s): R79.1 - Abnormal coagulation profile Status: Acute Assessment and Plan: Patient has history of mechanical aortic valve. INR 1.2 on 04/04. Goal 2.5-3.5. Patient states he has missed several doses of his warfarin secondary to weakness. - PT/INR 34.4/3.3 on 04/09. Warfarin resumed at 5 mg - PT/INR 49.4/5.3 on 04/11. Warfarin remains on hold. Repeat PT/INR this afternoon. - Recheck inr in am - No signs of active bleeding, continue to monitor (4) Aortic valve replaced: Code(s): Z95.2 - Presence of prosthetic heart valve Status: Acute Assessment and Plan: see plan for #1 (5) Hyperlipidemia: Code(s): E78.5 - Hyperlipidemia, unspecified Status: Acute Assessment and Plan: Continue atorvastatin 80 mg daily (6) Weakness: Code(s): R53.1 - Weakness Status: Acute Assessment and Plan: - Head CT: No acute intracranial process - Chest XR: Mild interstitial edema - Viral panel negative - PT/OT Recommending home health (7) Hypertension: Code(s): I10 - Essential (primary) hypertension Status: Acute Assessment and Plan: Chronic, continue home medication - nifedipine 90 mg daily - blood pressures remain stable, continue to monitor Time Spent With Patient Time with patient: 25 - 35 minutes Subjective Date/time seen: 04/11/24 07:09 Interval history: 73 y.o male with PMH/o mechanical aortic valve replacement on warfarin with a pacemaker, hypertension, and hyperlipidemia presents to the hospital for weakness. Patient is pleasant sitting up in his cough working with therapy. He has no complaints denying chest pain, shortness of breath, palpitations, nausea/vomiting and abdominal pain. Discussed patient with ID pharmacy and will prophylactically treat for endocarditis pending YOSVANY. Review of Systems Review of Systems: All systems reviewed & are unremarkable except as noted in HPI and below Exam Narrative: AF HR 74 RR 16 SpO2 94 BP 108/62 General: male in no acute respiratory distress who is nontoxic appearing, sitting on the couch HEENT: Normocephalic. Atraumatic. No facial asymmetry. Chest: Lungs are clear to auscultation bilaterally. No wheezes or crackles. CV: Heart was regular rate and rhythm. S1/S2. No murmurs, gallops, or rubs. Abd: Abdomen was soft. Nontender. Nondistended. Positive bowel sounds. Ext: No clubbing, cyanosis, or edema. 2+ DP pulses bilaterally. Objective Data Vital Signs Vital Signs: Vital Signs - 24 hr 04/10/24 09:14 04/10/24 09:16 04/10/24 09:16 Temperature 96.9 F L Pulse Rate 82 69 Respiratory Rate 16 Blood Pressure 128/60 Pulse Oximetry 92 92 Oxygen Delivery Room Air 04/10/24 12:00 04/10/24 14:45 04/10/24 16:00 Temperature 98.4 F Pulse Rate 69 76 72 Respiratory Rate 20 Blood Pressure 117/66 Pulse Oximetry 94 Oxygen Delivery 04/10/24 19:55 04/10/24 20:00 04/10/24 20:30 Temperature 98.5 F Pulse Rate 76 77 76 Respiratory Rate 17 17 Blood Pressure 119/68 Pulse Oximetry 95 95 Oxygen Delivery Room Air 04/11/24 00:04 04/11/24 04:00 04/11/24 04:55 Temperature 98.5 F Pulse Rate 74 73 72 Respiratory Rate 17 Blood Pressure 106/60 Pulse Oximetry 91 Oxygen Delivery Intake/Output Intake/Output: Intake & Output 04/08/24 04/09/24 04/10/24 04/11/24 23:59 23:59 23:59 23:59 Intake Total 1530 1400 2140 500 Output Total 1300 2 Balance 230 1398 2140 500 Meds/Results Medications: Active Medications Generic Name Dose Route Start Last Admin Trade Name Freq PRN Reason Stop Dose Admin Acetaminophen 650 mg 04/04/24 18:25 04/09/24 21:50 Acetaminophen 325 Mg Tablet PO 650 mg Q4H PRN Administration Mild Pain (1-3) or Fever Aspirin 81 mg 04/05/24 08:00 04/10/24 09:15 Aspirin 81 Mg Chewable Tablet PO 81 mg DAILY@0800 [place] Administration Atorvastatin Calcium 80 mg 04/05/24 09:00 04/10/24 09:16 Atorvastatin 40 Mg Tablet PO 80 mg DAILY [place] Administration Gabapentin 300 mg 04/04/24 23:35 04/10/24 16:34 Gabapentin 300 Mg Capsule PO 300 mg TID [place] Administration Ampicillin Sodium 2 gm in 100 mls @ 200 mls/hr 04/10/24 13:00 04/11/24 05:48 Ampicillin 2 Gm/Ns 100 Ml IVPB 200 mls/hr Q4HR [place] Administration Melatonin 3 mg 04/09/24 21:00 04/10/24 20:27 Melatonin 3 Mg Tablet PO 3 mg HS [place] Administration Nifedipine 90 mg 04/05/24 09:00 04/10/24 09:16 Nifedipine 30 Mg Tab.Er.24 PO 90 mg DAILY [place] Administration Ondansetron HCl 4 mg 04/04/24 18:25 Ondansetron Inj 4 Mg/2 Ml Vial IV PUSH Q4H PRN Nausea Perflutren Lipid Microsphere 0 ml 04/09/24 12:09 Perflutren Lipid Microspheres 1.5 Ml Vial Diluted To 10 Ml Total Volume IV PUSH 04/12/24 12:09 ONCE PRN adequate visualization Protocol Polyethylene Glycol 17 gm 04/09/24 14:15 04/09/24 14:32 Polyethylene Glycol 3350 17 Gm Powd.Pack PO 17 gm QAM PRN Administration Constipation Senna/Docusate Sodium 1 tab 04/07/24 21:00 04/10/24 20:27 Senna/Docusate Sodium Tablet PO 1 tab HS [place] Administration Triamterene/Hydrochlorothiazide 1 tab 04/05/24 09:00 04/10/24 09:16 Triamterene 37.5 Mg/Hctz 25 Mg (Maxzide) Tablet PO 1 tab DAILY [place] Administration Warfarin Sodium 5 mg 04/09/24 17:00 04/09/24 17:21 Warfarin (*Pbkc) 5 Mg Tablet PO 5 mg DAILY@1700 [place] Administration Radiology Results: ITS Impressions Head CT 04/04/24 17:56 IMPRESSION: No acute intracranial process. Chest X-Ray 04/08/24 10:42 IMPRESSION: 1. No acute cardiopulmonary disease. Abdomen/Pelvis CT 04/09/24 18:00 IMPRESSION: Cholelithiasis and mild gallbladder hydrops, without inflammatory changes, correlate with biliary labs. Cystitis versus urinary bladder wall thickening from chronic outlet obstruction. Otherwise, no acute abdominopelvic process detected. 3.7 cm infrarenal abdominal aortic aneurysm, recommend CT of the abdomen and pelvis with contrast in 2 years for follow-up. Labs Labs: Laboratory Results - last 24 hr 04/11/24 05:34 WBC 11.1 H RBC 3.02 L Hgb 9.8 L Hct 29.6 L MCV 98.0 MCH 32.5 MCHC 33.1 RDW 13.2 Plt Count 295 MPV 9.6 Sodium 131 L Potassium 3.2 L Chloride 95 L Carbon Dioxide 26 Anion Gap 10 BUN 17 Creatinine 0.76 Estim Creat Clear Calc 76 Estimated GFR > 60 Glucose 114 H Calcium 8.5 Total Bilirubin 0.8 AST 22 ALT 20 Alkaline Phosphatase 70 Total Protein 7.0 Albumin 3.2 L Quality VTE Prophylaxis VTE prophylaxis: pharmacologic ordered
[2024-04-11 07:13] LABS: INR 5.3
--- NOTE | 2024-04-11 08:45 | PM.CNCAR ---
Assessment and Plan Assessment and plan (1) Aortic valve replaced: Code(s): Z95.2 - Presence of prosthetic heart valve Status: Acute Assessment and Plan: Mechanical AVR in 2001. Echo here shows mild AI and severe aortic stenosis. Blood cultures positive for E. faecalis, no other source of infection identified. Will evaluate further with YOSVANY - unable to perform today he is not NPO and his INR is 5.4 today. (2) Bacteremia: Code(s): R78.81 - Bacteremia Status: Acute Assessment and Plan: As above. History of Present Illness History of Present Illness Consult date/time: 04/11/24 08:45 Requesting physician: Carlita Whitfield PA-C Consult reason: Other (YOSVANY) Reason For Visit: Subtherapeutic INR Narrative: George Rosa is a 73 year old male with mechanical aortic valve replacement (2001, [facility]), atrial fibrillation, tachy-ventura syndrome s/p permanent pacemaker placement, and hyperlipidemia. He presents to the hospital with a chief complaint of weakness. He is also experiencing chills, body aches, and fatigue. He has been found to have blood cultures positive for E. faecalis. Cardiology is consulted for consideration for YOSVANY. Review of Systems Review of Systems: All systems reviewed & are unremarkable except as noted in HPI and below PMFSH Past Medical History Medical History Hypertension Hyperlipidemia Surgical History Surgical History Aortic valve replaced Social History Social History Smoking status: Former smoker Tobacco type: cigarettes Smoking end date: 03/02/22 Alcohol intake: never Substance use: never Substance use type: does not use Do You Feel Safe in your Home?: Yes Lack of Transportation: No Lack of Food: Never True Current Housing: I Have Housing Concerned About Future Housing: No Difficulty Paying Gas/Electric Bills: No Difficulty Paying for Meds: No Currently Unemployed: No Education: Associate Degree Difficulty w/ Childcare or Family Care: No Spiritual care concerns: No Meds Home Medications and Allergies Home Medications ?Medication ?Instructions ?Recorded ?Confirmed ?Type aspirin 81 mg capsule 81 mg PO DAILY 04/04/24 04/04/24 History atorvastatin 80 mg tablet (Lipitor) 80 mg PO DAILY 04/04/24 04/04/24 History gabapentin 300 mg capsule 300 mg PO TID 04/04/24 04/04/24 History multivitamin 1 tablet PO DAILY 04/04/24 04/04/24 History nifedipine 90 mg tablet,extended 90 mg PO DAILY 04/04/24 04/04/24 History release triamterene 37.5 1 cap PO DAILY 04/04/24 04/04/24 History mg-hydrochlorothiazide 25 mg capsule warfarin 4 mg tablet 4 mg PO DAILY 04/04/24 04/04/24 History Allergies Allergy/AdvReac Type Severity Reaction Status Date / Time No Known Allergies Allergy Verified 04/04/24 15:28 Vital Signs Vital Signs - 24 hr 04/10/24 09:14 04/10/24 09:16 04/10/24 09:16 Temperature 36.1 C L Pulse Rate 82 69 Respiratory Rate 16 Blood Pressure 128/60 Pulse Oximetry 92 92 Oxygen Delivery Room Air 04/10/24 12:00 04/10/24 14:45 04/10/24 16:00 Temperature 36.9 C Pulse Rate 69 76 72 Respiratory Rate 20 Blood Pressure 117/66 Pulse Oximetry 94 Oxygen Delivery 04/10/24 19:55 04/10/24 20:00 04/10/24 20:30 Temperature 36.9 C Pulse Rate 76 77 76 Respiratory Rate 17 17 Blood Pressure 119/68 Pulse Oximetry 95 95 Oxygen Delivery Room Air 04/11/24 00:04 04/11/24 04:00 04/11/24 04:55 Temperature 36.9 C Pulse Rate 74 73 72 Respiratory Rate 17 Blood Pressure 106/60 Pulse Oximetry 91 Oxygen Delivery Exam Const: General: comfortable, no acute distress, alert and awake Orientation/consciousness: patient oriented x3 HENMT: Head: normal to inspection Eyes: General: appearance normal, both eyes and all related structures Pupils: Equal, round and reactive pupils present Neck: Neck: normal visual inspection, supple and no JVD Carotids: normal carotid upstroke Resp: Effort & Inspection: normal respiratory effort Auscultation: clear to auscultation bilaterally Cardio: Rate: regular rate Rhythm: regular rhythm Heart sounds: S1 normal heart sound present and S2 normal heart sound present Other: mechanical click auscultated GI: Auscultation: normal bowel sounds Skin: General skin exam: normal color Neuro: General: patient oriented x3 Cranial nerves: Yes Equal, round and reactive pupils present Extrem: General: normal to inspection Other: no edema Psych: Appearance: grossly normal Mental Status: mental status grossly normal Results Labs and Meds 04/11/24 05:34 04/11/24 05:34 Lab results: Cardiac Enzymes 04/11/24 Range/Units 05:34 AST 22 (17-59) U/L Coagulation 04/11/24 Range/Units 05:34 PT 49.4 H (11.1-14.7) Seconds CBC 04/11/24 Range/Units 05:34 WBC 11.1 H (4.5-10.0) K/mm3 RBC 3.02 L (4.6-6.20) M/mm3 Hgb 9.8 L (14.0-18.0) g/dL Hct 29.6 L (42.0-52.0) % Plt Count 295 (150-375) k/mm3 Comprehensive Metabolic Panel 04/11/24 Range/Units 05:34 Sodium 131 L (137-145) mmol/L Potassium 3.2 L (3.4-5.0) mmol/L Chloride 95 L (98-107) mmol/L Carbon Dioxide 26 (22-30) mmol/L BUN 17 (9-20) mg/dL Creatinine 0.76 (0.7-1.3) mg/dL Glucose 114 H (65-110) mg/dL Calcium 8.5 (8.4-10.2) mg/dL AST 22 (17-59) U/L ALT 20 (6-50) U/L Alkaline Phosphatase 70 (38-126) U/L Total Protein 7.0 (6.3-8.2) g/dL Albumin 3.2 L (3.5-5.1) g/dL Intake and Output 04/10/24 04/11/24 04/11/24 23:59 07:59 15:59 Intake Total 1000 500 Balance 1000 500 Intake: IV 200 100 Ampicillin 2 gm/Ns 100 ml 2 gm 200 100 In 100 ml @ 200 mls/hr IVPB Q4HR [place] Rx#:[id number] Oral 800 400 Other: # Unmeasured Voids 1
[2024-04-11] MEDS: ASPIRIN 81 MG CHEWABLE TABLET PO (09:24)
[2024-04-11] MEDS: ATORVASTATIN 40 MG TABLET 80 MG PO (09:25)
[2024-04-11] MEDS: GABAPENTIN 300 MG CAPSULE PO ×3 (09:26→16:19)
--- NOTE | 2024-04-11 09:48 | PCCARD ---
CANCELLED YOSVANY ORDERED BY [facility] [employer]. NOTIFIED THE RN THIS PATIENT NEEDS A CON[employer] CONSULT AND IF NEEDED THEY WILL ORDER.
--- NOTE | 2024-04-11 12:55 | PCOTNOTE ---
Attempted to see Patient this afternoon. Patient verbalized he has already done some therapy, he is doing fine, I am just really frustrated, ready to go home but have to have the IV antibiotics . Patients states he will probably be here a few more days and will some other day. RN notified and aware
[2024-04-11] MEDS: cefTRIAXone 2 GM/NS 100 ML 2 GM/100 ML BAG IVPB ×2 (14:34→20:09)
[2024-04-11 15:01] LABS: Prothrombin Time 52.4 Seconds (11.1-14.7)
[2024-04-11 15:50] LABS: INR 5.8
[2024-04-11] MEDS: MELATONIN 3 MG TABLET PO (20:09)
[2024-04-11] MEDS: SENNA/DOCUSATE SODIUM TABLET 1 TAB PO (20:09)
[2024-04-12] VITALS (9 sets, daily range): BP systolic 111–123; BP diastolic 56–60; PULSE 69–86; RESP 18–20; TEMP 36.6–36.9; O2SAT 93–96
[2024-04-12] MEDS: AMPICILLIN 2 GM/NS 100 ML 2 GM/100 ML BAG IVPB ×5 (01:21→20:08)
[2024-04-12 06:19] LABS: Prothrombin Time 52.5 Seconds (11.1-14.7)
[2024-04-12 07:08] LABS: INR 5.8
--- NOTE | 2024-04-12 07:14 | P.PNIM_ITS ---
Progress Note: A&P Assessment and Plan (1) Bacteremia: Code(s): R78.81 - Bacteremia Status: Acute Assessment and Plan: Unknown etiology. Patient has no open wounds, chest XR negative, UA nonconcerning for infection. CT showing cholelithiasis with gallbladder hydrops, however bili and LFTs unremarkable. - Blood culture: Preliminary - Enterococcus faecalis - Repeat blood cultures on 04/11: gram + cocci in pairs - Repeat blood cultures on 04/13 - Echo ordered to rule out endocarditis LVEF 60-65% with mild regurgitation of the mechanical aortic valve and severe aortic stenosis. Consider YOSVANY. - YOSVANY ordered, cardiology consulted. Planned for YOSVANY today, however INR too high. Will repeat INR and plan for YOSVANY on 04/13. - Antibiotics: Started on vancomycin on 04/09, transitioned to ampicillin 2g IV q4H on 04/10 and started on Rocephin 2g IV BID on 04/11 for endocarditis ppx - Continue to monitor (2) Fever: Code(s): R50.9 - Fever, unspecified Status: Acute Assessment and Plan: Temp 102.5 on 04/07 overnight. Resolved with Tylenol. Patient remains afebrile - Viral panel: Negative for flu/covid/rsv - Blood culture: See bacteremia plan above #1 - Denies shortness of breath. Chest XR unremarkable. - Denies dysuria, hematuria, burning sensation with urination. Urinalysis non concerning for infection. - CT abdomen/pelvis: Cholelithiasis and mild gallbladder hydrops, without inflammatory changes, correlate with biliary labs. Cystitis versus urinary bladder wall thickening from chronic outlet obstruction. Otherwise, no acute abdominopelvic process detected. 3.7 cm infrarenal abdominal aortic aneurysm, recommend CT of the abdomen and pelvis with contrast in 2 years for follow-up. - Echo ordered to rule out endocarditis LVEF 60-65% with mild regurgitation of the mechanical aortic valve and severe aortic stenosis. Consider YOSVANY. - YOSVANY ordered, cardiology consulted. Planned for YOSVANY today, however INR too high. Will repeat INR and plan for YOSVANY on 04/13. - Antibiotics: Started on vancomycin on 04/09, transitioned to ampicillin 2g IV q4H on 04/10 and started on rocephin 2g IV BID on 04/11 for endocarditis ppx - Continue to monitor (3) Subtherapeutic international normalized ratio (INR): Code(s): R79.1 - Abnormal coagulation profile Status: Acute Assessment and Plan: Patient has history of mechanical aortic valve. INR 1.2 on 04/04. Goal 2.5-3.5. Patient states he has missed several doses of his warfarin secondary to weakness. - PT/INR 34.4/3.3 on 04/09. Warfarin resumed at 5 mg - PT/INR 49.4/5.8 on 04/12. Warfarin remains on hold. - Recheck inr in am - No signs of active bleeding, continue to monitor (4) Aortic valve replaced: Code(s): Z95.2 - Presence of prosthetic heart valve Status: Acute Assessment and Plan: see plan for #1 (5) Hyperlipidemia: Code(s): E78.5 - Hyperlipidemia, unspecified Status: Acute Assessment and Plan: Continue atorvastatin 80 mg daily (6) Weakness: Code(s): R53.1 - Weakness Status: Acute Assessment and Plan: - Head CT: No acute intracranial process - Chest XR: Mild interstitial edema - Viral panel negative - PT/OT Recommending home health (7) Hypertension: Code(s): I10 - Essential (primary) hypertension Status: Acute Assessment and Plan: Chronic, continue home medication - nifedipine 90 mg daily - blood pressures remain stable, continue to monitor Time Spent With Patient Time with patient: 25 - 35 minutes Subjective Date/time seen: 04/12/24 07:14 Interval history: 73 y.o male with PMH/o mechanical aortic valve replacement on warfarin with a pacemaker, hypertension, and hyperlipidemia presents to the hospital for weakness. Patient is pleasant sitting up in bed with his son at bedside. He has no complaints denying chest pain, shortness of breath, palpitations, nausea/vomiting and abdominal pain. The plan was for patient to undergo a YOSVANY today to rule out endocarditis however INR was too high. Will repeat INR in the am and plan for YOSVANY tomorrow. Review of Systems Review of Systems: All systems reviewed & are unremarkable except as noted in HPI and below Exam Narrative: AF HR 73 RR 20 Spo2 94 BP 116/56 General: male in no acute respiratory distress who is nontoxic appearing, sitting up in bed. HEENT: Normocephalic. Atraumatic. No facial asymmetry. Chest: Lungs are clear to auscultation bilaterally. No wheezes or crackles. CV: Heart was regular rate and rhythm. S1/S2. No murmurs, gallops, or rubs. Abd: Abdomen was soft. Nontender. Nondistended. Positive bowel sounds. Ext: No clubbing, cyanosis, or edema. 2+ DP pulses bilaterally. Objective Data Vital Signs Vital Signs: Vital Signs - 24 hr 04/11/24 09:22 04/11/24 09:26 04/11/24 09:26 Temperature 97.5 F L Pulse Rate 74 73 Respiratory Rate 16 Blood Pressure 108/62 Pulse Oximetry 94 Oxygen Delivery Room Air 04/11/24 12:00 04/11/24 14:00 04/11/24 16:00 Temperature 96.5 F L Pulse Rate 69 69 78 Respiratory Rate 18 Blood Pressure 121/61 Pulse Oximetry 95 Oxygen Delivery 04/11/24 20:00 04/11/24 20:00 04/11/24 20:38 Temperature 98.2 F Pulse Rate 80 77 Respiratory Rate 20 Blood Pressure 123/64 Pulse Oximetry 93 Oxygen Delivery Room Air 04/12/24 00:00 04/12/24 03:33 04/12/24 04:00 Temperature 98.5 F Pulse Rate 74 73 73 Respiratory Rate 20 Blood Pressure 116/56 L Pulse Oximetry 94 Oxygen Delivery Intake/Output Intake/Output: Intake & Output 04/09/24 04/10/24 04/11/24 04/12/24 23:59 23:59 23:59 23:59 Intake Total 1400 2140 2490 590 Output Total 2 Balance 1398 2140 2490 590 Meds/Results Medications: Active Medications Generic Name Dose Route Start Last Admin Trade Name Dinora PRN Reason Stop Dose Admin Acetaminophen 650 mg 04/04/24 18:25 04/09/24 21:50 Acetaminophen 325 Mg Tablet PO 650 mg Q4H PRN Administration Mild Pain (1-3) or Fever Aspirin 81 mg 04/05/24 08:00 04/11/24 09:24 Aspirin 81 Mg Chewable Tablet PO 81 mg DAILY@0800 [place] Administration Atorvastatin Calcium 80 mg 04/05/24 09:00 04/11/24 09:25 Atorvastatin 40 Mg Tablet PO 80 mg DAILY [place] Administration Gabapentin 300 mg 04/04/24 23:35 04/11/24 16:19 Gabapentin 300 Mg Capsule PO 300 mg TID [place] Administration Ampicillin Sodium 2 gm in 100 mls @ 200 mls/hr 04/10/24 13:00 04/12/24 06:18 Ampicillin 2 Gm/Ns 100 Ml IVPB Infused Q4HR [place] Infusion Ceftriaxone Sodium 2 gm in 100 mls @ 200 mls/hr 04/11/24 13:00 04/11/24 20:39 Rocephin 2 Gm/Ns 100 Ml IVPB Infused Q12HR [place] Infusion Melatonin 3 mg 04/09/24 21:00 04/11/24 20:09 Melatonin 3 Mg Tablet PO 3 mg HS [place] Administration Nifedipine 90 mg 04/05/24 09:00 04/11/24 10:10 Nifedipine 30 Mg Tab.Er.24 PO Not Given DAILY [place] Ondansetron HCl 4 mg 04/04/24 18:25 Ondansetron Inj 4 Mg/2 Ml Vial IV PUSH Q4H PRN Nausea Perflutren Lipid Microsphere 0 ml 04/09/24 12:09 Perflutren Lipid Microspheres 1.5 Ml Vial Diluted To 10 Ml Total Volume IV PUSH 04/12/24 12:09 ONCE PRN adequate visualization Protocol Polyethylene Glycol 17 gm 04/09/24 14:15 04/09/24 14:32 Polyethylene Glycol 3350 17 Gm Powd.Pack PO 17 gm QAM PRN Administration Constipation Senna/Docusate Sodium 1 tab 04/07/24 21:00 04/11/24 20:09 Senna/Docusate Sodium Tablet PO 1 tab HS [place] Administration Triamterene/Hydrochlorothiazide 1 tab 04/05/24 09:00 04/11/24 10:10 Triamterene 37.5 Mg/Hctz 25 Mg (Maxzide) Tablet PO Not Given DAILY [facility] Warfarin Sodium 5 mg 04/09/24 17:00 04/09/24 17:21 Warfarin (*Pbkc) 5 Mg Tablet PO 5 mg DAILY@1700 [place] Administration Radiology Results: ITS Impressions Head CT 04/04/24 17:56 IMPRESSION: No acute intracranial process. Chest X-Ray 04/08/24 10:42 IMPRESSION: 1. No acute cardiopulmonary disease. Abdomen/Pelvis CT 04/09/24 18:00 IMPRESSION: Cholelithiasis and mild gallbladder hydrops, without inflammatory changes, correlate with biliary labs. Cystitis versus urinary bladder wall thickening from chronic outlet obstruction. Otherwise, no acute abdominopelvic process detected. 3.7 cm infrarenal abdominal aortic aneurysm, recommend CT of the abdomen and pelvis with contrast in 2 years for follow-up. Labs Labs: Laboratory Results - last 24 hr 04/11/24 04/12/24 14:30 05:17 PT 52.4 H 52.5 H INR 5.8 H* 5.8 H* Quality VTE Prophylaxis VTE prophylaxis: pharmacologic ordered
[2024-04-12 07:42] LABS: Hemoglobin 9.8 g/dL (14.0-18.0); Mean Corpuscular HGB Conc 33.8 g/dl (32-36); Mean Corpuscular Hemoglobin 33.3 pg (26-34); Mean Corpuscular Volume 98.6 fl (80-100); Mean Platelet Volume 9.7 fl (7.4-10.4); Platelet Count Result 306 k/mm3 (150-375); Red Blood Count 2.94 M/mm3 (4.6-6.20); Red Cell Distribution Width 13.2 % (11.5-14.5); White Blood Count 10.5 K/mm3 (4.5-10.0)
[2024-04-12 07:54] LABS: Alanine Aminotransferase 22 U/L (6-50); Albumin Level 3.1 g/dL (3.5-5.1); Alkaline Phosphatase 72 U/L (38-126); Anion Gap 7 mmol/L (4-12); Aspartate Amino Transferase 33 U/L (17-59); Bilirubin,Total 0.6 mg/dL (0.2-1.3); Blood Urea Nitrogen 16 mg/dL (9-20); Calcium 8.3 mg/dL (8.4-10.2); Carbon Dioxide 29 mmol/L (22-30); Chloride 97 mmol/L (98-107); Estimated CRCL calculation 85 ml/min; Estimated Glomerular Filt Rate > 60; Glucose 101 mg/dL (65-110); Potassium 3.3 mmol/L (3.4-5.0); Sodium 133 mmol/L (137-145)
[2024-04-12] MEDS: POTASSIUM CHLORIDE INJ 40 MEQ in SODIUM CHLORIDE 0.9% IV 500 ML 130 MEQ IVPB (09:12)
--- NOTE | 2024-04-12 09:41 | P.PNCROSS_ITS ---
Event Note Event Note Event Note: INR supratherapeutic today at 5.8. Will not proceed with YOSVANY today given suprat herapeutic INR.
--- NOTE | 2024-04-12 10:52 | PCNWS ---
Weekly nutritional screen. Patient is tolerating current diet with adequate intake. No weight loss reported. No nutritional needs at this time.
[2024-04-12] MEDS: ATORVASTATIN 40 MG TABLET 80 MG PO (11:01)
[2024-04-12] MEDS: ASPIRIN 81 MG CHEWABLE TABLET PO (11:01)
[2024-04-12] MEDS: TRIAMTERENE 37.5 MG/HCTZ 25 MG (MAXZIDE) TABLET 1 TAB PO (11:02)
[2024-04-12] MEDS: GABAPENTIN 300 MG CAPSULE PO ×2 (11:09→16:39)
[2024-04-12] MEDS: NIFEdipine 30 MG TAB.ER.24 90 MG PO (11:09)
--- NOTE | 2024-04-12 13:07 | PCPTNOTE ---
Patient refused treatment this session. Patient reported he just got back in bed and did not want to do therapy.
[2024-04-12] MEDS: cefTRIAXone 2 GM/NS 100 ML 2 GM/100 ML BAG IVPB ×2 (13:47→13:51)
[2024-04-12] MEDS: MELATONIN 3 MG TABLET PO (20:08)
[2024-04-13] VITALS (9 sets, daily range): BP systolic 98–118; BP diastolic 60–63; PULSE 69–79; RESP 14–20; TEMP 36.4–36.5; O2SAT 93–98
[2024-04-13] MEDS: AMPICILLIN 2 GM/NS 100 ML 2 GM/100 ML BAG IVPB ×6 (00:05→20:59)
[2024-04-13 06:30] LABS: Hematocrit 29.5 % (42.0-52.0); Hemoglobin 9.6 g/dL (14.0-18.0); Mean Corpuscular HGB Conc 32.5 g/dl (32-36); Mean Corpuscular Hemoglobin 32.7 pg (26-34); Mean Corpuscular Volume 100.3 fl (80-100); Mean Platelet Volume 9.8 fl (7.4-10.4); Platelet Count Result 302 k/mm3 (150-375); Red Blood Count 2.94 M/mm3 (4.6-6.20); Red Cell Distribution Width 13.2 % (11.5-14.5)
[2024-04-13 06:44] LABS: INR 4.3; Prothrombin Time 41.9 Seconds (11.1-14.7)
--- NOTE | 2024-04-13 07:48 | PM.IMPN ---
Progress Note: A&P Assessment and Plan (1) Bacteremia: Code(s): R78.81 - Bacteremia Status: Acute Assessment and Plan: Unknown etiology. Patient has no open wounds, chest XR negative, UA nonconcerning for infection. CT showing cholelithiasis with gallbladder hydrops, however bili and LFTs unremarkable. - Blood culture: Preliminary - Enterococcus faecalis - Repeat blood cultures on 04/11: gram + cocci in pairs - Repeat blood cultures on 04/13 - Echo ordered to rule out endocarditis LVEF 60-65% with mild regurgitation of the mechanical aortic valve and severe aortic stenosis. Consider YOSVANY. - YOSVANY ordered, cardiology consulted. Planned for YOSVANY today, however INR too high. Will repeat INR and plan for YOSVANY on 04/13. - Antibiotics: Started on vancomycin on 04/09, transitioned to ampicillin 2g IV q4H on 04/10 and started on Rocephin 2g IV BID on 04/11 for endocarditis ppx - Continue to monitor 04/13- repeated BC still pending (2) Fever: Code(s): R50.9 - Fever, unspecified Status: Acute Assessment and Plan: Temp 102.5 on 04/07 overnight. Resolved with Tylenol. Patient remains afebrile - Viral panel: Negative for flu/covid/rsv - Blood culture: See bacteremia plan above #1 - Denies shortness of breath. Chest XR unremarkable. - Denies dysuria, hematuria, burning sensation with urination. Urinalysis non concerning for infection. - CT abdomen/pelvis: Cholelithiasis and mild gallbladder hydrops, without inflammatory changes, correlate with biliary labs. Cystitis versus urinary bladder wall thickening from chronic outlet obstruction. Otherwise, no acute abdominopelvic process detected. 3.7 cm infrarenal abdominal aortic aneurysm, recommend CT of the abdomen and pelvis with contrast in 2 years for follow-up. - Echo ordered to rule out endocarditis LVEF 60-65% with mild regurgitation of the mechanical aortic valve and severe aortic stenosis. Consider YOSVANY. - YOSVANY ordered, cardiology consulted. Planned for YOSVANY today, however INR too high. Will repeat INR and plan for YOSVANY on 04/13. - Antibiotics: Started on vancomycin on 04/09, transitioned to ampicillin 2g IV q4H on 04/10 and started on rocephin 2g IV BID on 04/11 for endocarditis ppx - Continue to monitor (3) Subtherapeutic international normalized ratio (INR): Code(s): R79.1 - Abnormal coagulation profile Status: Acute Assessment and Plan: Patient has history of mechanical aortic valve. INR 1.2 on 04/04. Goal 2.5-3.5. Patient states he has missed several doses of his warfarin secondary to weakness. - PT/INR 34.4/3.3 on 04/09. Warfarin resumed at 5 mg - PT/INR 49.4/5.8 on 04/12. Warfarin remains on hold. - Recheck inr in am - No signs of active bleeding, continue to monitor 04/13- INR 4.3 today (4) Aortic valve replaced: Code(s): Z95.2 - Presence of prosthetic heart valve Status: Acute Assessment and Plan: see plan for #1 (5) Hyperlipidemia: Code(s): E78.5 - Hyperlipidemia, unspecified Status: Acute Assessment and Plan: Continue atorvastatin 80 mg daily (6) Weakness: Code(s): R53.1 - Weakness Status: Acute Assessment and Plan: - Head CT: No acute intracranial process - Chest XR: Mild interstitial edema - Viral panel negative - PT/OT Recommending home health (7) Hypertension: Code(s): I10 - Essential (primary) hypertension Status: Acute Assessment and Plan: Chronic, continue home medication - nifedipine 90 mg daily reviewed and stable-continue Time Spent With Patient Time with patient: 25 - 35 minutes Subjective Date/time seen: 04/13/24 07:48 Interval history: 73 y.o male with PMH/o mechanical aortic valve replacement on warfarin with a pacemaker, hypertension, and hyperlipidemia presents to the hospital for weakness. Patient is pleasant sitting up in bed with his son at bedside. He has no complaints denying chest pain, shortness of breath, palpitations, nausea/vomiting and abdominal pain. The plan was for patient to undergo a YOSVANY today to rule out endocarditis however INR was too high. INR today at 4.3. Possible YOSVANY today Pt is very frustrated as nothing is happening . Discussed that we are waiting for his BC to come back negative before we can even begin discussion about discharge. Cardiology have not seen him today as well. He is voicing no acute complains. Review of Systems Review of Systems: All systems reviewed & are unremarkable except as noted in HPI and below Exam Narrative: General: male in no acute respiratory distress who is nontoxic appearing, sitting up in bed. HEENT: Normocephalic. Atraumatic. No facial asymmetry. Chest: Lungs are clear to auscultation bilaterally. No wheezes or crackles. CV: Heart was regular rate and rhythm. S1/S2. No murmurs, gallops, or rubs. Abd: Abdomen was soft. Nontender. Nondistended. Positive bowel sounds. Ext: No clubbing, cyanosis, or edema. 2+ DP pulses bilaterally. Const: General: comfortable Eyes: General: appearance normal, both eyes and all related structures Neck: Neck: supple Thyroid: thyroid normal Resp: Effort & Inspection: normal respiratory effort Cardio: Rate: regular rate Rhythm: regular rhythm Skin: General skin exam: normal color Extrem: General: normal to inspection Psych: Affect: normal affect Objective Data Vital Signs Vital Signs: Vital Signs - 24 hr 04/12/24 09:12 04/12/24 09:12 04/12/24 12:00 Temperature Pulse Rate 70 86 Respiratory Rate Blood Pressure Pulse Oximetry Oxygen Delivery Room Air 04/12/24 14:00 04/12/24 16:00 04/12/24 20:00 Temperature 98.0 F Pulse Rate 69 84 Respiratory Rate 18 Blood Pressure 123/57 L Pulse Oximetry 96 Oxygen Delivery Room Air 04/12/24 20:00 04/12/24 20:04 04/13/24 00:00 Temperature 97.8 F Pulse Rate 76 76 71 Respiratory Rate 20 Blood Pressure 111/60 Pulse Oximetry 93 Oxygen Delivery 04/13/24 03:35 04/13/24 04:00 Temperature 97.7 F Pulse Rate 70 69 Respiratory Rate 20 Blood Pressure 98/61 L Pulse Oximetry 93 Oxygen Delivery Intake/Output Intake/Output: Intake & Output 04/10/24 04/11/24 04/12/24 04/13/24 23:59 23:59 23:59 23:59 Intake Total 2140 2490 2225.3 440 Output Total 1 Balance 2140 2490 2224.3 440 Meds/Results Medications: Active Medications Generic Name Dose Route Start Last Admin Trade Name Freq PRN Reason Stop Dose Admin Acetaminophen 650 mg 04/04/24 18:25 04/09/24 21:50 Acetaminophen 325 Mg Tablet PO 650 mg Q4H PRN Administration Mild Pain (1-3) or Fever Aspirin 81 mg 04/05/24 08:00 04/12/24 11:01 Aspirin 81 Mg Chewable Tablet PO 81 mg DAILY@0800 [place] Administration Atorvastatin Calcium 80 mg 04/05/24 09:00 04/12/24 11:01 Atorvastatin 40 Mg Tablet PO 80 mg DAILY [place] Administration Gabapentin 300 mg 04/04/24 23:35 04/12/24 16:39 Gabapentin 300 Mg Capsule PO 300 mg TID [place] Administration Ceftriaxone Sodium 2 gm in 100 mls @ 200 mls/hr 04/11/24 13:00 04/12/24 14:21 Rocephin 2 Gm/Ns 100 Ml IVPB Infused Q12HR [place] Infusion Ampicillin Sodium 2 gm in 100 mls @ 200 mls/hr 04/12/24 17:00 04/13/24 05:44 Ampicillin 2 Gm/Ns 100 Ml IVPB Infused Q4HR [place] Infusion Melatonin 3 mg 04/09/24 21:00 04/12/24 20:08 Melatonin 3 Mg Tablet PO 3 mg HS [place] Administration Nifedipine 90 mg 04/05/24 09:00 04/12/24 11:09 Nifedipine 30 Mg Tab.Er.24 PO 90 mg DAILY [place] Administration Ondansetron HCl 4 mg 04/04/24 18:25 Ondansetron Inj 4 Mg/2 Ml Vial IV PUSH Q4H PRN Nausea Polyethylene Glycol 17 gm 04/12/24 12:51 Polyethylene Glycol 3350 17 Gm Powd.Pack PO QAM PRN Constipation Senna/Docusate Sodium 1 tab 04/07/24 21:00 04/11/24 20:09 Senna/Docusate Sodium Tablet PO 1 tab HS [place] Administration Triamterene/Hydrochlorothiazide 1 tab 04/05/24 09:00 04/12/24 11:02 Triamterene 37.5 Mg/Hctz 25 Mg (Maxzide) Tablet PO 1 tab DAILY [place] Administration Warfarin Sodium 5 mg 04/09/24 17:00 04/09/24 17:21 Warfarin (*Pbkc) 5 Mg Tablet PO 5 mg DAILY@1700 [place] Administration Radiology Results: ITS Impressions Head CT 04/04/24 17:56 IMPRESSION: No acute intracranial process. Chest X-Ray 04/08/24 10:42 IMPRESSION: 1. No acute cardiopulmonary disease. Abdomen/Pelvis CT 04/09/24 18:00 IMPRESSION: Cholelithiasis and mild gallbladder hydrops, without inflammatory changes, correlate with biliary labs. Cystitis versus urinary bladder wall thickening from chronic outlet obstruction. Otherwise, no acute abdominopelvic process detected. 3.7 cm infrarenal abdominal aortic aneurysm, recommend CT of the abdomen and pelvis with contrast in 2 years for follow-up. Labs Labs: Laboratory Results - last 24 hr 04/12/24 04/13/24 05:17 05:53 WBC 10.0 RBC 2.94 L Hgb 9.6 L Hct 29.5 L MCV 100.3 H MCH 32.7 MCHC 32.5 RDW 13.2 Plt Count 302 MPV 9.8 PT 41.9 H D INR 4.3 Sodium 133 L Potassium 3.3 L Chloride 97 L Carbon Dioxide 29 Anion Gap 7 BUN 16 Creatinine 0.68 L Estim Creat Clear Calc 85 Estimated GFR > 60 Glucose 101 Calcium 8.3 L Total Bilirubin 0.6 AST 33 ALT 22 Alkaline Phosphatase 72 Total Protein 6.0 L Albumin 3.1 L Quality VTE Prophylaxis VTE prophylaxis: pharmacologic ordered
[2024-04-13] MEDS: cefTRIAXone 2 GM/NS 100 ML 2 GM/100 ML BAG IVPB ×2 (08:46→20:59)
[2024-04-13 09:21] LABS: Alanine Aminotransferase 23 U/L (6-50); Albumin Level 3.2 g/dL (3.5-5.1); Alkaline Phosphatase 77 U/L (38-126); Anion Gap 7 mmol/L (4-12); Aspartate Amino Transferase 22 U/L (17-59); Bilirubin,Total 0.7 mg/dL (0.2-1.3); Blood Urea Nitrogen 9 mg/dL (9-20); Calcium 8.5 mg/dL (8.4-10.2); Carbon Dioxide 29 mmol/L (22-30); Chloride 99 mmol/L (98-107); Estimated CRCL calculation 92 ml/min; Estimated Glomerular Filt Rate > 60; Glucose 102 mg/dL (65-110); Potassium 3.3 mmol/L (3.4-5.0); Sodium 135 mmol/L (137-145)
--- NOTE | 2024-04-13 12:09 | PCPTNOTE ---
Patient refused treatment this session. Patient reported he had a procedure this afternoon and did not want to do therapy today.
--- NOTE | 2024-04-13 12:35 | PCOTNOTE ---
Attempted to see Patient at this time. Patient refused to participate, states not today, supposed to go down for a procedure.
--- NOTE | 2024-04-13 13:58 | PM.EVENT ---
Event Note Event Note Event Note: Anesthesia team not available today, however, available tomorrow. Will plan for YOSVANY tomorrow. Diet order placed for today and NPO at midnight placed. Alerted Hospitalist to change in plan.
[2024-04-13] MEDS: GABAPENTIN 300 MG CAPSULE PO (17:19)
[2024-04-13] MEDS: ACETAMINOPHEN 325 MG TABLET 650 MG PO (18:27)
[2024-04-13] MEDS: MELATONIN 3 MG TABLET PO (21:02)
[2024-04-14] VITALS (9 sets, daily range): BP systolic 110–119; BP diastolic 56–65; PULSE 69–84; RESP 18–20; TEMP 36.8–37.6; O2SAT 93–96
[2024-04-14] MEDS: AMPICILLIN 2 GM/NS 100 ML 2 GM/100 ML BAG IVPB ×6 (01:54→21:15)
[2024-04-14 05:06] LABS: Hematocrit 28.4 % (42.0-52.0); Hemoglobin 9.2 g/dL (14.0-18.0); Mean Corpuscular HGB Conc 32.4 g/dl (32-36); Mean Corpuscular Hemoglobin 32.4 pg (26-34); Mean Platelet Volume 9.3 fl (7.4-10.4); Platelet Count Result 315 k/mm3 (150-375); Red Blood Count 2.84 M/mm3 (4.6-6.20); White Blood Count 10.1 K/mm3 (4.5-10.0)
[2024-04-14 05:14] LABS: Prothrombin Time 47.2 Seconds (11.1-14.7)
[2024-04-14 05:27] LABS: Alanine Aminotransferase 20 U/L (6-50); Alkaline Phosphatase 72 U/L (38-126); Anion Gap 10 mmol/L (4-12); Aspartate Amino Transferase 20 U/L (17-59); Bilirubin,Total 0.6 mg/dL (0.2-1.3); Blood Urea Nitrogen 7 mg/dL (9-20); Calcium 8.3 mg/dL (8.4-10.2); Carbon Dioxide 27 mmol/L (22-30); Chloride 98 mmol/L (98-107); Estimated CRCL calculation 101 ml/min; Estimated Glomerular Filt Rate > 60; Glucose 91 mg/dL (65-110); Potassium 3.7 mmol/L (3.4-5.0); Sodium 135 mmol/L (137-145)
[2024-04-14] MEDS: cefTRIAXone 2 GM/NS 100 ML 2 GM/100 ML BAG IVPB ×2 (08:26→20:31)
--- NOTE | 2024-04-14 08:26 | P.PNIM_ITS ---
Progress Note: A&P Assessment and Plan (1) Bacteremia: Code(s): R78.81 - Bacteremia Status: Acute Assessment and Plan: Unknown etiology. Patient has no open wounds, chest XR negative, UA nonconcerning for infection. CT showing cholelithiasis with gallbladder hydrops, however bili and LFTs unremarkable. - Blood culture: Preliminary - Enterococcus faecalis - Repeat blood cultures on 04/11: gram + cocci in pairs - Repeat blood cultures on 04/13 - Echo ordered to rule out endocarditis LVEF 60-65% with mild regurgitation of the mechanical aortic valve and severe aortic stenosis. Consider YOSVANY. - YOSVANY ordered, cardiology consulted. Planned for YOSVANY today, however INR too high. Will repeat INR and plan for YOSVANY on 04/13. - Antibiotics: Started on vancomycin on 04/09, transitioned to ampicillin 2g IV q4H on 04/10 and started on Rocephin 2g IV BID on 04/11 for endocarditis ppx - Continue to monitor 04/13- repeated BC still pending 04/14- prelim BC negative Discussed with pharm ID- pt will need 4-6 weeks of antibiotics. Hopefully we can do YOSVANY tomorrow so we can narrow the treatment down, if not able to do YOSVANY- will treat as possible endocarditis with 6 weeks of ampicillin and Rocephin. Disused with care coordination. Pt will need a PICC line. waiting for tomorrow to get BC negative final results. (2) Fever: Code(s): R50.9 - Fever, unspecified Status: Acute Assessment and Plan: Temp 102.5 on 04/07 overnight. Resolved with Tylenol. Patient remains afebrile - Viral panel: Negative for flu/covid/rsv - Blood culture: See bacteremia plan above #1 - Denies shortness of breath. Chest XR unremarkable. - Denies dysuria, hematuria, burning sensation with urination. Urinalysis non concerning for infection. - CT abdomen/pelvis: Cholelithiasis and mild gallbladder hydrops, without inflammatory changes, correlate with biliary labs. Cystitis versus urinary bladder wall thickening from chronic outlet obstruction. Otherwise, no acute abdominopelvic process detected. 3.7 cm infrarenal abdominal aortic aneurysm, recommend CT of the abdomen and pelvis with contrast in 2 years for follow-up. - Echo ordered to rule out endocarditis LVEF 60-65% with mild regurgitation of the mechanical aortic valve and severe aortic stenosis. Consider YOSVANY. - YOSVANY ordered, cardiology consulted. Planned for YOSVANY today, however INR too high. Will repeat INR and plan for YOSVANY on 04/13. - Antibiotics: Started on vancomycin on 04/09, transitioned to ampicillin 2g IV q4H on 04/10 and started on rocephin 2g IV BID on 04/11 for endocarditis ppx - Continue to monitor stable (3) Subtherapeutic international normalized ratio (INR): Code(s): R79.1 - Abnormal coagulation profile Status: Acute Assessment and Plan: Patient has history of mechanical aortic valve. INR 1.2 on 04/04. Goal 2.5-3.5. Patient states he has missed several doses of his warfarin secondary to weakness. - PT/INR 34.4/3.3 on 04/09. Warfarin resumed at 5 mg - PT/INR 49.4/5.8 on 04/12. Warfarin remains on hold. - Recheck inr in am - No signs of active bleeding, continue to monitor 04/13- INR 4.3 today 04/14- INR 5 (4) Aortic valve replaced: Code(s): Z95.2 - Presence of prosthetic heart valve Status: Acute Assessment and Plan: see plan for #1 (5) Hyperlipidemia: Code(s): E78.5 - Hyperlipidemia, unspecified Status: Acute Assessment and Plan: Continue atorvastatin 80 mg daily (6) Weakness: Code(s): R53.1 - Weakness Status: Acute Assessment and Plan: - Head CT: No acute intracranial process - Chest XR: Mild interstitial edema - Viral panel negative - PT/OT Recommending home health (7) Hypertension: Code(s): I10 - Essential (primary) hypertension Status: Acute Assessment and Plan: Chronic, continue home medication - nifedipine 90 mg daily reviewed and stable-continue Time Spent With Patient Time with patient: 25 - 35 minutes Subjective Date/time seen: 04/14/24 08:26 Interval history: 73 y.o male with PMH/o mechanical aortic valve replacement on warfarin with a pacemaker, hypertension, and hyperlipidemia presents to the hospital for weakness. Patient is pleasant sitting up in bed with his son at bedside. He has no complaints denying chest pain, shortness of breath, palpitations, nausea/vomiting and abdominal pain. The plan was for patient to undergo a YOSVANY today to rule out endocarditis however INR was too high. possible YOSVANY today. BC negative so far. no acute events overnight. INR increased to 5 today. Pt is very agitated and wants to go home.Agreeable to stay overnight- if INR is better-will proceed with YOSVANY tomorrow. IF not, PICC line and 6 weeks of antibiotics and close f/u with cardiology for YOSVANY as an oupt. Review of Systems Review of Systems: All systems reviewed & are unremarkable except as noted in HPI and below Exam Narrative: General: male in no acute respiratory distress who is nontoxic appearing HEENT: Normocephalic. Atraumatic. No facial asymmetry. Chest: Lungs are clear to auscultation bilaterally. No wheezes or crackles. CV: Heart was regular rate and rhythm. S1/S2. No murmurs, gallops, or rubs. Abd: Abdomen was soft. Nontender. Nondistended. Positive bowel sounds. Ext: No clubbing, cyanosis, or edema. 2+ DP pulses bilaterally. Const: General: comfortable Eyes: General: appearance normal, both eyes and all related structures Neck: Neck: supple Thyroid: thyroid normal Resp: Effort & Inspection: normal respiratory effort Cardio: Rate: regular rate Rhythm: regular rhythm Skin: General skin exam: normal color Extrem: General: normal to inspection Psych: Affect: normal affect Objective Data Vital Signs Vital Signs: Vital Signs - 24 hr 04/13/24 08:53 04/13/24 12:00 04/13/24 14:00 Temperature 97.5 F L Pulse Rate 69 74 Respiratory Rate 16 Blood Pressure 117/63 Pulse Oximetry 98 Oxygen Delivery Room Air 04/13/24 16:00 04/13/24 19:40 04/13/24 20:00 Temperature 97.6 F Pulse Rate 69 69 Respiratory Rate 14 Blood Pressure 118/60 Pulse Oximetry 94 Oxygen Delivery Room Air 04/13/24 20:00 04/14/24 00:00 04/14/24 04:00 Temperature Pulse Rate 79 73 69 Respiratory Rate Blood Pressure Pulse Oximetry Oxygen Delivery 04/14/24 04:00 Temperature 99.6 F Pulse Rate 73 Respiratory Rate 18 Blood Pressure 119/65 Pulse Oximetry 96 Oxygen Delivery Intake/Output Intake/Output: Intake & Output 04/11/24 04/12/24 04/13/24 04/14/24 23:59 23:59 23:59 23:59 Intake Total 2490 2225.3 1040 350 Output Total 1 Balance 2490 2224.3 1040 350 Meds/Results Medications: Active Medications Generic Name Dose Route Start Last Admin Trade Name Freq PRN Reason Stop Dose Admin Acetaminophen 650 mg 04/04/24 18:25 04/13/24 18:27 Acetaminophen 325 Mg Tablet PO 650 mg Q4H PRN Administration Mild Pain (1-3) or Fever Aspirin 81 mg 04/05/24 08:00 04/13/24 11:33 Aspirin 81 Mg Chewable Tablet PO Not Given DAILY@0800 [place] Atorvastatin Calcium 80 mg 04/05/24 09:00 04/13/24 11:33 Atorvastatin 40 Mg Tablet PO Not Given DAILY [place] Gabapentin 300 mg 04/04/24 23:35 04/13/24 17:19 Gabapentin 300 Mg Capsule PO 300 mg TID [place] Administration Ceftriaxone Sodium 2 gm in 100 mls @ 200 mls/hr 04/11/24 13:00 04/13/24 21:29 Rocephin 2 Gm/Ns 100 Ml IVPB Infused Q12HR [place] Infusion Ampicillin Sodium 2 gm in 100 mls @ 200 mls/hr 04/12/24 17:00 04/14/24 06:24 Ampicillin 2 Gm/Ns 100 Ml IVPB Infused Q4HR [place] Infusion Melatonin 3 mg 04/09/24 21:00 04/13/24 21:02 Melatonin 3 Mg Tablet PO 3 mg HS [place] Administration Nifedipine 90 mg 04/05/24 09:00 04/13/24 11:33 Nifedipine 30 Mg Tab.Er.24 PO Not Given DAILY [place] Ondansetron HCl 4 mg 04/04/24 18:25 Ondansetron Inj 4 Mg/2 Ml Vial IV PUSH Q4H PRN Nausea Polyethylene Glycol 17 gm 04/12/24 12:51 Polyethylene Glycol 3350 17 Gm Powd.Pack PO QAM PRN Constipation Senna/Docusate Sodium 1 tab 04/07/24 21:00 04/11/24 20:09 Senna/Docusate Sodium Tablet PO 1 tab HS [place] Administration Triamterene/Hydrochlorothiazide 1 tab 04/05/24 09:00 04/13/24 11:33 Triamterene 37.5 Mg/Hctz 25 Mg (Maxzide) Tablet PO Not Given DAILY [place] Warfarin Sodium 5 mg 04/09/24 17:00 04/09/24 17:21 Warfarin (*Pbkc) 5 Mg Tablet PO 5 mg DAILY@1700 [place] Administration Radiology Results: ITS Impressions Head CT 04/04/24 17:56 IMPRESSION: No acute intracranial process. Chest X-Ray 04/08/24 10:42 IMPRESSION: 1. No acute cardiopulmonary disease. Abdomen/Pelvis CT 04/09/24 18:00 IMPRESSION: Cholelithiasis and mild gallbladder hydrops, without inflammatory changes, correlate with biliary labs. Cystitis versus urinary bladder wall thickening from chronic outlet obstruction. Otherwise, no acute abdominopelvic process detected. 3.7 cm infrarenal abdominal aortic aneurysm, recommend CT of the abdomen and pelvis with contrast in 2 years for follow-up. Labs Labs: Laboratory Results - last 24 hr 04/13/24 04/14/24 08:28 04:16 WBC 10.1 H RBC 2.84 L Hgb 9.2 L Hct 28.4 L MCV 100.0 MCH 32.4 MCHC 32.4 RDW 13.0 Plt Count 315 MPV 9.3 PT 47.2 H INR 5.0 Sodium 135 L 135 L Potassium 3.3 L 3.7 Chloride 99 98 Carbon Dioxide 29 27 Anion Gap 7 10 BUN 9 D 7 L Creatinine 0.62 L 0.56 L Estim Creat Clear Calc 92 101 Estimated GFR > 60 > 60 Glucose 102 91 Calcium 8.5 8.3 L Total Bilirubin 0.7 0.6 AST 22 20 ALT 23 20 Alkaline Phosphatase 77 72 Total Protein 7.0 6.0 L Albumin 3.2 L 3.0 L Quality VTE Prophylaxis VTE prophylaxis: pharmacologic ordered
[2024-04-14] MEDS: NIFEdipine 30 MG TAB.ER.24 90 MG PO (08:31)
[2024-04-14] MEDS: ATORVASTATIN 40 MG TABLET 80 MG PO (08:31)
[2024-04-14] MEDS: TRIAMTERENE 37.5 MG/HCTZ 25 MG (MAXZIDE) TABLET 1 TAB PO (08:31)
[2024-04-14] MEDS: ASPIRIN 81 MG CHEWABLE TABLET PO (08:31)
[2024-04-14] MEDS: GABAPENTIN 300 MG CAPSULE PO ×3 (08:32→16:23)
[2024-04-14] MEDS: MELATONIN 3 MG TABLET PO (20:32)
[2024-04-15] VITALS (12 sets, daily range): BP systolic 98–134; BP diastolic 48–64; PULSE 69–95; RESP 14–20; TEMP 37.1; O2SAT 91–98
[2024-04-15] MEDS: AMPICILLIN 2 GM/NS 100 ML 2 GM/100 ML BAG IVPB ×6 (01:11→19:50)
[2024-04-15 08:00] LABS: Hematocrit 28.9 % (42.0-52.0); Hemoglobin 9.6 g/dL (14.0-18.0); Mean Corpuscular HGB Conc 33.2 g/dl (32-36); Mean Corpuscular Hemoglobin 32.7 pg (26-34); Mean Corpuscular Volume 98.3 fl (80-100); Mean Platelet Volume 8.9 fl (7.4-10.4); Platelet Count Result 334 k/mm3 (150-375); Red Blood Count 2.94 M/mm3 (4.6-6.20); Red Cell Distribution Width 13.2 % (11.5-14.5); White Blood Count 8.3 K/mm3 (4.5-10.0)
[2024-04-15 08:14] LABS: Alanine Aminotransferase 24 U/L (6-50); Alkaline Phosphatase 81 U/L (38-126); Anion Gap 8 mmol/L (4-12); Aspartate Amino Transferase 23 U/L (17-59); Bilirubin,Total 0.7 mg/dL (0.2-1.3); Blood Urea Nitrogen 6 mg/dL (9-20); Calcium 8.5 mg/dL (8.4-10.2); Carbon Dioxide 31 mmol/L (22-30); Chloride 97 mmol/L (98-107); Estimated CRCL calculation 93 ml/min; Estimated Glomerular Filt Rate > 60; Glucose 105 mg/dL (65-110); Potassium 3.2 mmol/L (3.4-5.0); Sodium 136 mmol/L (137-145)
[2024-04-15 08:17] LABS: INR 3.8; Prothrombin Time 37.9 Seconds (11.1-14.7)
--- NOTE | 2024-04-15 09:01 | VASCRN ---
Order received for: PICC line on 04/14/24 at 0916. After review of the chart and the patient assessment, patient is not a candidate for the following reason(s): I spoke to Rosana Hardy about PICC line order and plan of care for this patient. She stated he would be here at least until 04/15 for YOSVANY. I requested that we wait until the to look at the line as he had repeat blood cultures drawn on 04/13/24 and since he had 2 previous positive cultures it would be best to give this new set 48 hours prior to placing this correction PICC line. Provider was agreeable. On 04/15/24 at 0748 the patients blood cultures from 04/13/24 were positive. I notified the above provider about this. Provider notified:Rosana Hardy
[2024-04-15] MEDS: cefTRIAXone 2 GM/NS 100 ML 2 GM/100 ML BAG IVPB ×2 (09:24→20:25)
[2024-04-15] MEDS: ASPIRIN 81 MG CHEWABLE TABLET PO (09:25)
[2024-04-15] MEDS: TRIAMTERENE 37.5 MG/HCTZ 25 MG (MAXZIDE) TABLET 1 TAB PO (09:25)
[2024-04-15] MEDS: ATORVASTATIN 40 MG TABLET 80 MG PO (09:25)
[2024-04-15] MEDS: GABAPENTIN 300 MG CAPSULE PO ×2 (09:25→17:04)
[2024-04-15] MEDS: NIFEdipine 30 MG TAB.ER.24 90 MG PO (09:25)
--- NOTE | 2024-04-15 12:41 | WPDHPUPDATE1 ---
History and Physical Update Update Date/Time: 04/15/24 12:41 History and Physical has been reviewed, including an updated exam of the patient. There are NO changes in the patient's condition. Risks, benefits, and alternatives have been discussed and questions answered. Patient agrees to proceed with procedure.
--- NOTE | 2024-04-15 12:43 | PC.NURSE ---
Patient to chest pain center for YOSVANY report given to RN
--- NOTE | 2024-04-15 12:44 | P.PNAN_ITS ---
Anes - Initial Pre Proc Eval Procedure: Operation Date: 04/14/24 14:30 Proposed Procedures p Trans Esophageal Echo - Rene Berumen MD Operation Date: 04/15/24 13:00 Proposed Procedures p Trans Esophageal Echo - Halima Jerome MD Date/Time: 04/15/24 12:44 Surgeon: Carlita Whitfield PA-C Pre Op Diagnosis: Subtherapeutic INR Patient Data Age: 73 Gender: M Height: 1.78 m Weight: 87.9 kg Last Vital Signs Temp 37.1 C 04/15/24 03:06 Pulse 69 04/15/24 12:00 Resp 20 04/15/24 03:06 BP 105/59 L 04/15/24 09:28 Pulse Ox 96 04/15/24 09:28 O2 Del Method Room Air 04/15/24 09:25 Allergies Allergy/AdvReac Type Severity Reaction Status Date / Time No Known Allergies Allergy Verified 04/04/24 15:28 Home Medications ?Medication ?Instructions ?Recorded ?Confirmed ?Type aspirin 81 mg capsule 81 mg PO DAILY 04/04/24 04/04/24 History atorvastatin 80 mg tablet (Lipitor) 80 mg PO DAILY 04/04/24 04/04/24 History gabapentin 300 mg capsule 300 mg PO TID 04/04/24 04/04/24 History multivitamin 1 tablet PO DAILY 04/04/24 04/04/24 History nifedipine 90 mg tablet,extended 90 mg PO DAILY 04/04/24 04/04/24 History release triamterene 37.5 1 cap PO DAILY 04/04/24 04/04/24 History mg-hydrochlorothiazide 25 mg capsule warfarin 4 mg tablet 4 mg PO DAILY 04/04/24 04/04/24 History Laboratory Tests 04/15/24 07:42 WBC 8.3 K/mm3 (4.5-10.0) RBC 2.94 L M/mm3 (4.6-6.20) Hgb 9.6 L g/dL (14.0-18.0) Hct 28.9 L % (42.0-52.0) MCV 98.3 fl (80-100) MCH 32.7 pg (26-34) MCHC 33.2 g/dl (32-36) RDW 13.2 % (11.5-14.5) Plt Count 334 k/mm3 (150-375) MPV 8.9 fl (7.4-10.4) PT 37.9 H Seconds (11.1-14.7) INR 3.8 Sodium 136 L mmol/L (137-145) Potassium 3.2 L mmol/L (3.4-5.0) Chloride 97 L mmol/L (98-107) Carbon Dioxide 31 H mmol/L (22-30) Anion Gap 8 mmol/L (4-12) BUN 6 L mg/dL (9-20) Creatinine 0.61 L mg/dL (0.7-1.3) Estim Creat Clear Calc 93 ml/min Estimated GFR > 60 (59 - ) Glucose 105 mg/dL (65-110) Calcium 8.5 mg/dL (8.4-10.2) Total Bilirubin 0.7 mg/dL (0.2-1.3) AST 23 U/L (17-59) ALT 24 U/L (6-50) Alkaline Phosphatase 81 U/L (38-126) Total Protein 7.0 g/dL (6.3-8.2) Albumin 3.0 L g/dL (3.5-5.1) Patient hx anesthesia problems: none Family hx anesthesia problems: none Results Review: All pre-operative results and documents have been reviewed as part of the pre- operative evaluation. [facility] Past Medical History Medical History Hypertension Hyperlipidemia Surgical History Surgical History Aortic valve replaced Social History Social History Smoking status: Former smoker Tobacco type: cigarettes Smoking end date: 03/02/22 Alcohol intake: never Substance use: never Substance use type: does not use Do You Feel Safe in your Home?: Yes Lack of Transportation: No Lack of Food: Never True Current Housing: I Have Housing Concerned About Future Housing: No Difficulty Paying Gas/Electric Bills: No Difficulty Paying for Meds: No Currently Unemployed: No Education: Associate Degree Difficulty w/ Childcare or Family Care: No Spiritual care concerns: No Anes - Eval Final PreProcedure Day of Procedure 04/15/24 12:44 Patient weight: normal Heart: irregular rhythm (AFib) Lungs: clear to auscultation Airway: Mallampati scale class II Neurological: alert and oriented Last oral intake: >/= 8 hours ASA classification: IV Emergent: no Anesthetic plan: proceed Anesthesia type and monitoring: general GIVS and standard monitoring Results Review: All pre-operative results and documents have been reviewed as part of the pre-operative evaluation. Informed Consent: The patient's anesthetic plan and its attendant risks and benefits were discussed with the patient/family/POA. Questions were solicited and answers provided to the satisfaction of the patient/family/POA.
--- NOTE | 2024-04-15 13:48 | WPDTEECHO ---
YOSVANY TransEsophageal Echocardiogram Date of procedure: 04/15/24 Procedure Type: Date Of Procedure: 04/15/2024 Brief History Of Present Illness: Patient is referred for transesophageal echocardiogram to evaluate for infective endocarditis. Procedure In Detail: After verbal and written informed consent was obtained, the patient risks, benefits, and alternatives explained in detail. The patient agreed to proceed with the plan of care as outlined above.?The patient was evaluated at bedside in the geophysical laboratory supervisor procedure room.?Patient was monitored throughout the study with telemetry, oxygen saturation, end-tidal CO2 monitoring, blood pressure, heart rate, and respirations.?The posterior hypopharynx was then locally anesthetized using repeated administration of Hurricaine spray. After local anesthetic of the posterior hypopharynx was achieved and the oral bite block placed, sedation was administered by the Anesthesia team.?After confirmation of adequate sedation, the transesophageal echocardiogram probe was advanced through the oral bite block into the posterior hypopharynx and into the esophagus easily and without complication.?Multiple, multiplanar echocardiographic images were obtained in multiple standard re-projections.?Color-flow Doppler were utilized in conjunction with this study.?At the conclusion of the study, the transesophageal echocardiogram probe was removed easily and without complication. The patient tolerated the procedure well without difficulty. Moderate Sedation / Anesthesia Administration: Sedation administered by the Anesthesia team. FINDINGS: LEFT VENTRICLE: Normal size. Systolic function is normal. RIGHT VENTRICLE:?Normal size and normal systolic function. Pacemaker lead visualized in the right ventricle. No obvious vegetation noted on the pacemaker lead. LEFT ATRIUM: Normal size. RIGHT ATRIUM: Normal size. Pacemaker lead visualized in the right atrium. No obvious vegetation noted on the pacemaker lead. INTERATRIAL SEPTUM: Interatrial septum is anatomically normal MITRAL VALVE: Mild regurgitation. No vegetations. AORTIC VALVE: The leaflets of the prosthetic aortic valve are not well visualized. There is mild aortic regurgitation. Vegetation noted on the ventricular side of the valve, measures up to approximately 0.98cm x 0.97cm. TRICUSPID VALVE: No gross mobile elements identified. PULMONIC VALVE: Pulmonic valve was not well visualized. LEFT ATRIAL APPENDAGE: No thrombus. AORTA: Mild atherosclerotic disease. CONCLUSION: Prosthetic aortic valve endocarditis. Complications: None Recommendations: Given prosthetic aortic valve endocarditis, recommend transfer to tertiary center for Infectious Disease and Cardiothoracic Surgery consultations. Recommendations discussed with Hospitalist.
--- NOTE | 2024-04-15 14:22 | PC.NURSE ---
Patient returned from chest pain center, family at bedside
--- NOTE | 2024-04-15 14:40 | PM.IMPN ---
Progress Note: A&P Assessment and Plan (1) Bacteremia: Code(s): R78.81 - Bacteremia Status: Acute Assessment and Plan: Unknown etiology. Patient has no open wounds, chest XR negative, UA nonconcerning for infection. CT showing cholelithiasis with gallbladder hydrops, however bili and LFTs unremarkable. - Blood culture: Preliminary - Enterococcus faecalis - Repeat blood cultures on 04/11: gram + cocci in pairs - Repeat blood cultures on 04/13 - Echo ordered to rule out endocarditis LVEF 60-65% with mild regurgitation of the mechanical aortic valve and severe aortic stenosis. Consider SARA. - SARA ordered, cardiology consulted. Planned for SARA today, however INR too high. Will repeat INR and plan for SARA on 04/13. - Antibiotics: Started on vancomycin on 04/09, transitioned to ampicillin 2g IV q4H on 04/10 and started on Rocephin 2g IV BID on 04/11 for endocarditis ppx - Continue to monitor 04/13- repeated BC still pending 04/14- prelim BC negative Discussed with pharm ID- pt will need 4-6 weeks of antibiotics. Hopefully we can do SARA tomorrow so we can narrow the treatment down, if not able to do SARA-will treat as possible endocarditis with 6 weeks of ampicillin and Rocephin. Disused with care coordination. Pt will need a PICC line. waiting for tomorrow to get BC negative final results. 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 Discussed with pt and family- ok to transfer- prefers [facility] as he had his aortic valve Called [facility]- talked to DR Del Cid Waiting to see if beds are available. will repeat BC in am-ordered. (2) Fever: Code(s): R50.9 - Fever, unspecified Status: Acute Assessment and Plan: Temp 102.5 on 04/07 overnight. Resolved with Tylenol. Patient remains afebrile - Viral panel: Negative for flu/covid/rsv - Blood culture: See bacteremia plan above #1 - Denies shortness of breath. Chest XR unremarkable. - Denies dysuria, hematuria, burning sensation with urination. Urinalysis non concerning for infection. - CT abdomen/pelvis: Cholelithiasis and mild gallbladder hydrops, without inflammatory changes, correlate with biliary labs. Cystitis versus urinary bladder wall thickening from chronic outlet obstruction. Otherwise, no acute abdominopelvic process detected. 3.7 cm infrarenal abdominal aortic aneurysm, recommend CT of the abdomen and pelvis with contrast in 2 years for follow-up. - Echo ordered to rule out endocarditis LVEF 60-65% with mild regurgitation of the mechanical aortic valve and severe aortic stenosis. Consider SARA. - SARA ordered, cardiology consulted. Planned for SARA today, however INR too high. Will repeat INR and plan for SARA on 04/13. - Antibiotics: Started on vancomycin on 04/09, transitioned to ampicillin 2g IV q4H on 04/10 and started on rocephin 2g IV BID on 04/11 for endocarditis ppx - Continue to monitor stable (3) Subtherapeutic international normalized ratio (INR): Code(s): R79.1 - Abnormal coagulation profile Status: Acute Assessment and Plan: Patient has history of mechanical aortic valve. INR 1.2 on 04/04. Goal 2.5-3.5. Patient states he has missed several doses of his warfarin secondary to weakness. - PT/INR 34.4/3.3 on 04/09. Warfarin resumed at 5 mg - PT/INR 49.4/5.8 on 04/12. Warfarin remains on hold. - Recheck inr in am - No signs of active bleeding, continue to monitor 04/13- INR 4.3 today 04/14- INR 5 04/15 INR 3.8 (4) Aortic valve replaced: Code(s): Z95.2 - Presence of prosthetic heart valve Status: Acute Assessment and Plan: see plan for #1 (5) Hyperlipidemia: Code(s): E78.5 - Hyperlipidemia, unspecified Status: Acute Assessment and Plan: Continue atorvastatin 80 mg daily (6) Weakness: Code(s): R53.1 - Weakness Status: Acute Assessment and Plan: - Head CT: No acute intracranial process - Chest XR: Mild interstitial edema - Viral panel negative - PT/OT Recommending home health (7) Hypertension: Code(s): I10 - Essential (primary) hypertension Status: Acute Assessment and Plan: Chronic, continue home medication - nifedipine 90 mg daily reviewed and stable-continue Time Spent With Patient Time with patient: Greater than 35 minutes Subjective Date/time seen: 04/15/24 14:40 Interval history: 73 y.o male with PMH/o mechanical aortic valve replacement on warfarin with a pacemaker, hypertension, and hyperlipidemia presents to the hospital for weakness. Patient is pleasant sitting up in bed with his son at bedside. He has no complaints denying chest pain, shortness of breath, palpitations, nausea/vomiting and abdominal pain. The plan was for patient to undergo a SARA today to rule out endocarditis however INR was too high. possible SARA today. BC negative so far. no acute events overnight. INR increased to 5 today. Pt is very agitated and wants to go home.Agreeable to stay overnight- if INR is better-will proceed with SARA tomorrow. IF not, PICC line and 6 weeks of antibiotics and close f/u with cardiology for SARA as an oupt. INR improved today- 3.8. sara today Review of Systems Review of Systems: All systems reviewed & are unremarkable except as noted in HPI and below Exam Narrative: General: male in no acute respiratory distress who is nontoxic appearing HEENT: Normocephalic. Atraumatic. No facial asymmetry. Chest: Lungs are clear to auscultation bilaterally. No wheezes or crackles. CV: Heart was regular rate and rhythm. S1/S2. No murmurs, gallops, or rubs. Abd: Abdomen was soft. Nontender. Nondistended. Positive bowel sounds. Ext: No clubbing, cyanosis, or edema. 2+ DP pulses bilaterally. Const: General: comfortable Eyes: General: appearance normal, both eyes and all related structures Neck: Neck: supple Thyroid: thyroid normal Resp: Effort & Inspection: normal respiratory effort Cardio: Rate: regular rate Rhythm: regular rhythm Skin: General skin exam: normal color Extrem: General: normal to inspection Psych: Affect: normal affect Objective Data Vital Signs Vital Signs: Vital Signs - 24 hr 04/14/24 16:03 04/14/24 19:51 04/14/24 20:00 Temperature 98.3 F Pulse Rate 72 69 Respiratory Rate 20 Blood Pressure 112/56 L Pulse Oximetry 93 Oxygen Delivery Room Air 04/14/24 20:00 04/15/24 00:00 04/15/24 03:06 Temperature 98.7 F Pulse Rate 69 74 71 Respiratory Rate 20 Blood Pressure 103/64 Pulse Oximetry 91 Oxygen Delivery 04/15/24 04:00 04/15/24 08:00 04/15/24 09:25 Temperature Pulse Rate 71 72 Respiratory Rate Blood Pressure Pulse Oximetry 97 Oxygen Delivery Room Air 04/15/24 09:28 04/15/24 12:00 04/15/24 13:40 Temperature Pulse Rate 69 69 69 Respiratory Rate 14 Blood Pressure 105/59 L 98/48 L Pulse Oximetry 96 98 Oxygen Delivery Room Air 04/15/24 13:45 04/15/24 14:00 04/15/24 14:38 Temperature Pulse Rate 69 69 77 Respiratory Rate 15 18 Blood Pressure 117/62 134/61 116/60 Pulse Oximetry 97 96 94 Oxygen Delivery Room Air Room Air Intake/Output Intake/Output: Intake & Output 04/12/24 04/13/24 04/14/24 04/15/24 23:59 23:59 23:59 23:59 Intake Total 2225.3 1040 1412 520 Output Total 1 Balance 2224.3 1040 1412 520 Meds/Results Medications: Active Medications Generic Name Dose Route Start Last Admin Trade Name Freq PRN Reason Stop Dose Admin Acetaminophen 650 mg 04/04/24 18:25 04/13/24 18:27 Acetaminophen 325 Mg Tablet PO 650 mg Q4H PRN Administration Mild Pain (1-3) or Fever Aspirin 81 mg 04/05/24 08:00 04/15/24 09:25 Aspirin 81 Mg Chewable Tablet PO 81 mg DAILY@0800 [place] Administration Atorvastatin Calcium 80 mg 04/05/24 09:00 04/15/24 09:25 Atorvastatin 40 Mg Tablet PO 80 mg DAILY [place] Administration Gabapentin 300 mg 04/04/24 23:35 04/15/24 12:42 Gabapentin 300 Mg Capsule PO Not Given TID [facility] Ceftriaxone Sodium 2 gm in 100 mls @ 200 mls/hr 04/11/24 13:00 04/15/24 09:54 Rocephin 2 Gm/Ns 100 Ml IVPB Infused Q12HR [place] Infusion Ampicillin Sodium 2 gm in 100 mls @ 200 mls/hr 04/12/24 17:00 04/15/24 13:40 Ampicillin 2 Gm/Ns 100 Ml IVPB 200 mls/hr Q4HR [place] Administration Melatonin 3 mg 04/09/24 21:00 04/14/24 20:32 Melatonin 3 Mg Tablet PO 3 mg HS [place] Administration Nifedipine 90 mg 04/05/24 09:00 04/15/24 09:25 Nifedipine 30 Mg Tab.Er.24 PO 90 mg DAILY [place] Administration Ondansetron HCl 4 mg 04/04/24 18:25 Ondansetron Inj 4 Mg/2 Ml Vial IV PUSH Q4H PRN Nausea Polyethylene Glycol 17 gm 04/12/24 12:51 Polyethylene Glycol 3350 17 Gm Powd.Pack PO QAM PRN Constipation Senna/Docusate Sodium 1 tab 04/07/24 21:00 04/11/24 20:09 Senna/Docusate Sodium Tablet PO 1 tab HS [place] Administration Triamterene/Hydrochlorothiazide 1 tab 04/05/24 09:00 04/15/24 09:25 Triamterene 37.5 Mg/Hctz 25 Mg (Maxzide) Tablet PO 1 tab DAILY [place] Administration Warfarin Sodium 5 mg 04/09/24 17:00 04/09/24 17:21 Warfarin (*Pbkc) 5 Mg Tablet PO 5 mg DAILY@1700 [place] Administration Radiology Results: ITS Impressions Head CT 04/04/24 17:56 IMPRESSION: No acute intracranial process. Chest X-Ray 04/08/24 10:42 IMPRESSION: 1. No acute cardiopulmonary disease. Abdomen/Pelvis CT 04/09/24 18:00 IMPRESSION: Cholelithiasis and mild gallbladder hydrops, without inflammatory changes, correlate with biliary labs. Cystitis versus urinary bladder wall thickening from chronic outlet obstruction. Otherwise, no acute abdominopelvic process detected. 3.7 cm infrarenal abdominal aortic aneurysm, recommend CT of the abdomen and pelvis with contrast in 2 years for follow-up. Labs Labs: Laboratory Results - last 24 hr 04/15/24 07:42 WBC 8.3 RBC 2.94 L Hgb 9.6 L Hct 28.9 L MCV 98.3 MCH 32.7 MCHC 33.2 RDW 13.2 Plt Count 334 MPV 8.9 PT 37.9 H INR 3.8 Sodium 136 L Potassium 3.2 L Chloride 97 L Carbon Dioxide 31 H Anion Gap 8 BUN 6 L Creatinine 0.61 L Estim Creat Clear Calc 93 Estimated GFR > 60 Glucose 105 Calcium 8.5 Total Bilirubin 0.7 AST 23 ALT 24 Alkaline Phosphatase 81 Total Protein 7.0 Albumin 3.0 L Quality VTE Prophylaxis VTE prophylaxis: pharmacologic ordered
[2024-04-15] MEDS: MELATONIN 3 MG TABLET PO (20:26)
--- NOTE | 2024-04-16 05:55 | PM.TDS ---
Transfer Discharge Sum: Prov Provider Date of admission: 04/05/24 07:54 Primary care physician: Ambar Yang, Admitting clinician: Sumit Marsh MD Consults: 04/11/24 Consult to Physician Routine Comment: Spoke to Tierra Lee @ 08:05am (-) Consulting Provider: Rene Berumen house calls nurse practitioner/MD group to consult: cardiology Reason for consultation: YOSVANY r/o endocarditis Has provider been notified: Yes Attending physician on discharge: Manny Madrid Discharging clinician: Karla Hardy Anticipated date of transfer: 04/15/24 Receiving physician/facility: Dr Higinio Capps DS: Admitting Diagnosis Discharge Date 04/15/24 Admitting Diagnosis weakness DS: Discharge Diagnosis Discharge Diagnosis (1) Bacteremia: Code(s): R78.81 - Bacteremia Status: Acute (2) Fever: Code(s): R50.9 - Fever, unspecified Status: Acute (3) Subtherapeutic international normalized ratio (INR): Code(s): R79.1 - Abnormal coagulation profile Status: Acute (4) Aortic valve replaced: Code(s): Z95.2 - Presence of prosthetic heart valve Status: Acute (5) Hyperlipidemia: Code(s): E78.5 - Hyperlipidemia, unspecified Status: Acute (6) Weakness: Code(s): R53.1 - Weakness Status: Acute (7) Hypertension: Code(s): I10 - Essential (primary) hypertension Status: Acute Transfer Discharge Sum: Med Medications Active and Home Medications: Home Medications aspirin 81 mg capsule 81 mg PO DAILY 04/04/24 [History Confirmed 04/04/24] atorvastatin 80 mg tablet (Lipitor) 80 mg PO DAILY 04/04/24 [History Confirmed 04/04/24] gabapentin 300 mg capsule 300 mg PO TID 04/04/24 [History Confirmed 04/04/24] multivitamin 1 tablet PO DAILY 04/04/24 [History Confirmed 04/04/24] nifedipine 90 mg tablet,extended release 90 mg PO DAILY 04/04/24 [History Confirmed 04/04/24] triamterene 37.5 mg-hydrochlorothiazide 25 mg capsule 1 cap PO DAILY 04/04/24 [History Confirmed 04/04/24] warfarin 4 mg tablet 4 mg PO DAILY 04/04/24 [History Confirmed 04/04/24] Transfer Discharge Sum: Hosp Hospital Course Hospital course: 73 y.o male with PMH/o mechanical aortic valve replacement on warfarin with a pacemaker, hypertension, and hyperlipidemia presents to the hospital for weakness. # bacteremia Patient has no open wounds, chest XR negative, UA nonconcerning for infection. CT showing cholelithiasis with gallbladder hydrops, however bili and LFTs unremarkable. Aortic valve replacement in 2008 - Blood culture: Preliminary - Enterococcus faecalis - Repeat blood cultures on 04/11: gram + cocci in pairs - Repeat blood cultures on 04/13 - Echo ordered to rule out endocarditis LVEF 60-65% with mild regurgitation of the mechanical aortic valve and severe aortic stenosis. Consider YOSVANY. - YOSVANY ordered, cardiology consulted. Planned for YOSVANY today, however INR too high. Will repeat INR and plan for YOSVANY on 04/13. BC: 04/08 Enterococcus faecalis BC: 04/11 Enterococcus faecalis BC: 04/13: first set- gram positive cocci, second set-negative - Antibiotics: Started on vancomycin on 04/09, transitioned to ampicillin 2g IV q4H on 04/10 and started on Rocephin 2g IV BID on 04/11 for endocarditis ppx 04/15 one set of Blood cultues are positive YOSVANY- prostatic aortic valve endocarditis. Discussed with pt and family- ok to transfer- prefers [facility] as he had his aortic valve Called [facility]- talked to DR Del Cid Waiting to see if beds are available. will repeat BC in am-ordered. YOSVANY on 04/15: FINDINGS: LEFT VENTRICLE: Normal size. Systolic function is normal. RIGHT VENTRICLE:?Normal size and normal systolic function. Pacemaker lead visualized in the right ventricle. No obvious vegetation noted on the pacemaker lead. LEFT ATRIUM: Normal size. RIGHT ATRIUM: Normal size. Pacemaker lead visualized in the right atrium. No obvious vegetation noted on the pacemaker lead. INTERATRIAL SEPTUM: Interatrial septum is anatomically normal MITRAL VALVE: Mild regurgitation. No vegetations. AORTIC VALVE: The leaflets of the prosthetic aortic valve are not well visualized. There is mild aortic regurgitation. Vegetation noted on the ventricular side of the valve, measures up to approximately 0.98cm x 0.97cm. TRICUSPID VALVE: No gross mobile elements identified. PULMONIC VALVE: Pulmonic valve was not well visualized. LEFT ATRIAL APPENDAGE: No thrombus. AORTA: Mild atherosclerotic disease. CONCLUSION: Prosthetic aortic valve endocarditis. # Fever Temp 102.5 on 04/07 overnight. Resolved with Tylenol. Patient remains afebrile - Viral panel: Negative for flu/covid/rsv - Blood culture: See bacteremia plan above #1 - Denies shortness of breath. Chest XR unremarkable. - Denies dysuria, hematuria, burning sensation with urination. Urinalysis non concerning for infection. - CT abdomen/pelvis: Cholelithiasis and mild gallbladder hydrops, without inflammatory changes, correlate with biliary labs. Cystitis versus urinary bladder wall thickening from chronic outlet obstruction. Otherwise, no acute abdominopelvic process detected. 3.7 cm infrarenal abdominal aortic aneurysm, recommend CT of the abdomen and pelvis with contrast in 2 years for follow-up. - Echo ordered to rule out endocarditis LVEF 60-65% with mild regurgitation of the mechanical aortic valve and severe aortic stenosis. Consider YOSVANY. - YOSVANY ordered, cardiology consulted. Planned for YOSVANY today, however INR too high. Will repeat INR and plan for YOSVANY on 04/13. - Antibiotics: Started on vancomycin on 04/09, transitioned to ampicillin 2g IV q4H on 04/10 and started on rocephin 2g IV BID on 04/11 for endocarditis ppx # subtherapeutic INR history of mechanical aortic valve. INR 1.2 on 04/04. Goal 2.5-3.5. Patient states he has missed several doses of his warfarin secondary to weakness. - PT/INR 34.4/3.3 on 04/09. Warfarin resumed at 5 mg - PT/INR 49.4/5.8 on 04/12. Warfarin remains on hold. - Recheck inr in am - No signs of active bleeding, continue to monitor 04/13- INR 4.3 today 04/14- INR 5 04/15 INR 3.8 # weakness - Head CT: No acute intracranial process - Chest XR: Mild interstitial edema - Viral panel negative - PT/OT Recommending home health # 7) Hypertension: Chronic, continue home medication - nifedipine 90 mg daily reviewed and stable-continue Care discussed with Dr Sylvester ([facility]) who accepted transfer. Family and pt updated. Pt is alert, oriented, VS stable, pain free. Transferred in stable condition. Time Spent with Patient Time attestation: Total time spent providing and/or coordinating transfer services: Total time spent: Greater than 30 minutes Exam Narrative: General: male in no acute respiratory distress who is nontoxic appearing HEENT: Normocephalic. Atraumatic. No facial asymmetry. Chest: Lungs are clear to auscultation bilaterally. No wheezes or crackles. CV: Heart was regular rate and rhythm. S1/S2. No murmurs, gallops, or rubs. Abd: Abdomen was soft. Nontender. Nondistended. Positive bowel sounds. Ext: No clubbing, cyanosis, or edema. 2+ DP pulses bilaterally. Const: General: comfortable HENMT: Mouth: Yes Normal oral and palatal mucosa present Eyes: General: appearance normal, both eyes and all related structures Neck: Neck: supple Thyroid: thyroid normal Chest: Chest palpation & inspection: normal inspection of the chest Resp: Effort & Inspection: normal respiratory effort Auscultation: clear to auscultation bilaterally Cardio: Rate: regular rate Rhythm: regular rhythm Skin: General skin exam: normal color Neuro: General: oriented to person, oriented to place and oriented to time Speech: normal speech Gait exam (Neuro): Normal gait present Motor exam (neuro): 5/5 motor strength present throughout Sensory Exam: normal sensation Extrem: General: normal to inspection Psych: Appearance: grossly normal Speech and movement: Clear speech present Affect: normal affect Attitude: cooperative DS: Data Data Completed and Pending Completed studies during hospitalization: chest xray, chest/pelvis CT, head CT Labs on day of discharge: Labs from last 24 hours 04/15/24 07:42 WBC 8.3 RBC 2.94 L Hgb 9.6 L Hct 28.9 L MCV 98.3 MCH 32.7 MCHC 33.2 RDW 13.2 Plt Count 334 MPV 8.9 PT 37.9 H INR 3.8 Sodium 136 L Potassium 3.2 L Chloride 97 L Carbon Dioxide 31 H Anion Gap 8 BUN 6 L Creatinine 0.61 L Estim Creat Clear Calc 93 Estimated GFR > 60 Glucose 105 Calcium 8.5 Total Bilirubin 0.7 AST 23 ALT 24 Alkaline Phosphatase 81 Total Protein 7.0 Albumin 3.0 L Preliminary micro results at discharge 04/13/24 06:03 Blood Culture - Preliminary Blood Gram positive cocci in pairs 04/13/24 05:53 Blood Culture - Preliminary Blood
== END 2024-04-15 21:00 | disposition short-term general hospital (02) | DRG 314 ==
LOC: ANHED 19:25 → ANH3MEDSUR 19:33 → ANH2MED 21:48
PROVIDERS: Internal Medicine; Physician Assistant; Student in an Organized Health Care Education/Training Program; Admitting Provider Internal Medicine; Emergency Provider Emergency Medicine; PCP Internal Medicine; Visit Provider Nurse Practitioner
PROC: B24BZZ4 Ultrasonography of Heart with Aorta, Transesophageal (ICD-10-PCS; CPT 93312; principal; 2024-04-15 13:00)
DX: T82.6XXA Infection and inflammatory reaction due to cardiac valve prosthesis, initial encounter (principal); I33.0 Acute and subacute infective endocarditis; R78.81 Bacteremia; R79.1 Abnormal coagulation profile; R50.9 Fever, unspecified; I35.0 Nonrheumatic aortic (valve) stenosis; I10 Essential (primary) hypertension; E78.5 Hyperlipidemia, unspecified; B95.2 Enterococcus as the cause of diseases classified elsewhere; Z20.822 Contact with and (suspected) exposure to COVID-19; Z95.2 Presence of prosthetic heart valve; Z95.0 Presence of cardiac pacemaker; Z79.82 Long term (current) use of aspirin; Z79.01 Long term (current) use of anticoagulants; Z87.891 Personal history of nicotine dependence; K80.20 Calculus of gallbladder without cholecystitis without obstruction
CPT/HCPCS: 36415; 70450; 71045; 74177; 80053; 81001; 83880; 84484; 85025; 85027; 85610; 85730; 87040; 87181; 87637; 93005; 93306; 93312; 93320; 93325; 96374; 96375; 97110; 97116; 97161; 97165; 97530; 97535; 99285; A9270; G0378; J0290; J0696; J1644; J2003; J2371; J2704; J3370; J3480; J7040; Q9967